=== PATIENT | male | born 1960 | race Caucasian/White ===

== ENCOUNTER 2017-03-18 22:39 | Emergency (ER) | payer MEDICARE ==
[2017-03-19 00:45] LABS: ALANINE AMINOTRANSFERASE 37 U/L (21-72); ALBUMIN 4.2 g/dL (3.5-5.0); ALKALINE PHOSPHATASE 88 U/L (38-126); ANION GAP 16 (5-19); ASPARTATE AMINO TRANSFERASE 31 U/L (17-59); BILIRUBIN,DIRECT 0.4 mg/dL (0.0-0.4); BILIRUBIN,TOTAL 0.4 mg/dL (0.2-1.3); BLOOD UREA NITROGEN 18 mg/dL (7-20); CALCIUM 9.7 mg/dL (8.4-10.2); CARBON DIOXIDE 23 mmol/L (22-30); CHLORIDE 110 mmol/L (98-107); CREATININE RESULT 0.84 mg/dL (0.52-1.25); GLUCOSE 100 mg/dL (75-110); LIPASE 73.8 U/L (23-300); POTASSIUM 4.2 mmol/L (3.6-5.0); SODIUM 148.5 mmol/L (137-145); TOTAL PROTEIN 7.3 g/dL (6.3-8.2)
[2017-03-19 00:49] LABS: ABSOLUTE BASOPHILS # (AUTO) 0.1 10^3/uL (0.0-0.2); ABSOLUTE EOSINOPHILS # (AUTO) 0.2 10^3/uL (0.0-0.6); ABSOLUTE LYMPHOCYTES (AUTO) 2.9 10^3/uL (0.5-4.7); ABSOLUTE MONOCYTES (AUTO) 0.5 10^3/uL (0.1-1.4); ABSOLUTE NEUT (AUTO) 5.3 10^3/uL (1.7-8.2); BASOPHILS % (AUTO) 0.7 % (0-2); EOSINOPHILS % (AUTO) 2.1 % (0-6); HEMATOCRIT 41.3 % (37.9-51.0); HGB HCT DIFFERENCE 0.7; LYMPHOCYTES % (AUTO) 32.4 % (13-45); MEAN CORPUSCULAR HEMOGLOBIN 31.5 pg (27.0-33.4); MEAN CORPUSCULAR VOLUME 93 fl (80-97); MONOCYTES % (AUTO) 5.8 % (3-13); RED BLOOD COUNT 4.45 10^6/uL (4.35-5.55); RED CELL DISTRIBUTION WIDTH 14.2 % (11.5-14.0)
[2017-03-19 00:51] LABS: APPEARANCE,URINE CLEAR; BILIRUBIN,URINE NEGATIVE (NEGATIVE); GLUCOSE, URINE NEGATIVE (NEGATIVE); KETONES,URINE TRACE mg/dL (NEGATIVE); LEUKOCYTE ESTERASE,URINE NEGATIVE (NEGATIVE); NITRITE,URINE NEGATIVE (NEGATIVE); PROTEIN,URINE NEGATIVE (NEGATIVE); URINE SPECIFIC GRAVITY 1.033; UROBILINOGEN,URINE NEGATIVE mg/dL (<2.0)
[2017-03-19] MEDS ORDERED: ONDANSETRON HCL INJ/PF 4 MG/2 ML SDV IV ONE (01:21)
[2017-03-19] MEDS ORDERED: MORPHINE SULFATE 10 MG/ML INJ IV ONE (01:21)
[2017-03-19] MEDS ORDERED: NORMAL SALINE 1000 ML 1,000 ML IV ONE (01:22)
--- NOTE | 2017-03-19 02:11 | ER Document Report ---
ED General - General Chief Complaint: Abdominal Pain Stated Complaint: ABDOMINAL PAIN Mode of Arrival: Medic Information source: Patient Notes: This is a 56-year-old male with a history of hypertension coronary artery disease and ongoing tobacco use who presents with recurrent abdominal pain. He states that he was admitted to [facility] several weeks ago for a "bad gallbladder" and states that they were going to do surgery but then they discovered that he had a "bleeding ulcer" and so they canceled his surgery. He states that he has had difficulty following up with the surgeon as an outpatient. He states for the past 2 days he has had increased upper abdominal pain and right upper quadrant pain along with nausea and vomiting. He also states that he vomited some red blood tonight. He denies any fevers or chills. Of note patient is on chronic narcotics and is in pain management for chronic back pain. He states that he takes oxycodone 4 times a day. TRAVEL OUTSIDE OF THE [place] IN LAST 30 DAYS: No - Related Data Allergies/Adverse Reactions: Iodinated Contrast Media - Oral and [IV Dye, Iodine Containing] Allergy ( Verified 10/23/16 17:17) Past Medical History - Social History Smoking Status: Current Every Day Smoker Frequency of alcohol use: None Drug Abuse: None Family History: Reviewed & Not Pertinent Patient has suicidal ideation: No Patient has homicidal ideation: No - Past Medical History Cardiac Medical History: Reports: Hx Heart Attack, Hx Hypertension Pulmonary Medical History: Reports: Hx Asthma Denies: Hx Tuberculosis Renal/ Medical History: Denies: Hx Peritoneal Dialysis GI Medical History: Reports: Hx Ulcer Musculoskeltal Medical History: Reports Hx Arthritis Psychiatric Medical History: Reports: Hx Anxiety Denies: Hx Depression Past Surgical History: Reports: Hx Cardiac Catheterization - 2 cardiac catheters , angioplasty, patient denies stents, Hx Orthopedic Surgery - ACF, lumbar fusion - Immunizations Immunizations up to date: Yes Hx Diphtheria, Pertussis, Tetanus Vaccination: Yes Hx Pneumococcal Vaccination: 11/14/14 Review of Systems - Review of Systems Notes: REVIEW OF SYSTEMS: CONSTITUTIONAL : Denies fever, chills, or sweats. Denies recent illness. EENT: Denies eye, ear, throat, or mouth pain or symptoms. Denies nasal or sinus congestion. CARDIOVASCULAR: Denies chest pain. RESPIRATORY: Denies cough, cold, or chest congestion. Denies shortness of breath, difficulty breathing, or wheezing. GASTROINTESTINAL: As per history of present illness GENITOURINARY: Denies difficulty urinating, painful urination, burning, frequency, or blood in urine. MUSCULOSKELETAL: Denies neck or back pain or joint pain or swelling. SKIN: Denies rash or skin lesions. HEMATOLOGIC : Denies easy bruising or bleeding. LYMPHATIC: Denies swollen, enlarged glands. NEUROLOGICAL: Denies altered mental status or loss of consciousness. Denies headache. PSYCHIATRIC: Denies anxiety or stress or depression. ALL OTHER SYSTEMS REVIEWED AND NEGATIVE. Physical Exam - Vital signs Vitals: Temp Pulse Resp BP Pulse Ox 97.5 F 77 20 116/68 97 03/18/17 22:57 03/18/17 22:57 03/18/17 22:57 03/18/17 22:57 03/18/17 22:57 - Notes Notes: PHYSICAL EXAMINATION: GENERAL: Well-appearing, well-nourished and in no acute distress. Pleasant and conversant HEAD: Atraumatic, normocephalic. EYES: Pupils equal round and reactive to light, extraocular movements intact, sclera anicteric, conjunctiva are normal. ENT: nares patent, oropharynx clear without exudates. Moist mucous membranes. NECK: Normal range of motion, supple without lymphadenopathy LUNGS: Breath sounds clear to auscultation bilaterally and equal. No wheezes rales or rhonchi. HEART: Regular rate and rhythm without murmurs ABDOMEN: Soft, epigastric and right upper quadrant tenderness to palpation without guarding or rebound or rigidity., normoactive bowel sounds. No masses appreciated. EXTREMITIES: Normal range of motion, no pitting or edema. No cyanosis. NEUROLOGICAL: Cranial nerves grossly intact. No gross focal motor or sensory deficits appreciated. PSYCH: Normal mood, normal affect. SKIN: Warm, Dry, normal turgor, no rashes or lesions noted. Course - Re-evaluation Re-evalutation: 03/19/17 04:29 Patient states that he did vomit here in the ER but I have not visualized the emesis. He states that he is just dry heaving now and that he last vomited blood 2 to 3 hours ago. I did obtain the medical records from [facility]. It appears that he was admitted from February 16 to February 18. He had a gallbladder ultrasound which demonstrated wall thickening and a small amount of pericholecystic fluid but no stones were visualized. He had a HIDA scan with a normal ejection fraction. He was diagnosed with acalculous cholecystitis and instructed to follow up to schedule outpatient cholecystectomy. He also had an EGD demonstrated a clean-based duodenal bulb ulcer with no evidence of active bleeding. On CT today he is noted to have an infrarenal abdominal aortic aneurysm measuring 3.7 x 2.8 centimeters. This is an increase in size from 3.2 x 2.6 cm in April 2014. I have contacted transfer center at [facility], as patient was recently admitted and had his imaging studies there, and as [place] does not have GI services this weekend. 03/19/17 05:[address] Woo at [facility] who requests NGT lavage and stool occult blood to determine GI bleed status, will require transfer if positive for GI bleeding. 03/19/17 05:43 Patient had had multiple requests for narcotic pain medication during his ER stay, although during multiple evaluations he is noted to be on his phone, or resting comfortably watching TV, and in no distress at all. I have continued to discuss and offer non-narcotic pain control options. 03/19/17 06:30 NGT was a technically difficult insertion, but lavage was without gross blood. Occult blood stool was negative. No indication of active GI bleed at this time. 03/19/17 06:54 Patient will be discharged home and is given information to follow up with outpatient surgery clinic. As I was discussing his discharge he again had several requests for pain medication and requested that I write him for a few days of his oxycodone because he will run out 2 days before he can get his refill. I did explain our department policy on chronic pain and he became upset. However after further discussion he states that he understands and he will follow-up with his primary care physician and with the surgeon as an outpatient. We discussed strict return precautions to include fevers, increasing vomiting or further vomiting blood. - Vital Signs Vital signs: Temp Pulse Resp BP Pulse Ox 97.5 F 77 20 116/68 97 03/18/17 22:57 03/18/17 22:57 03/18/17 22:57 03/18/17 22:57 03/18/17 22:57 - Laboratory Result Diagrams: 03/19/17 00:10 03/19/17 00:10 Laboratory results interpreted by me: 03/19/17 03/19/17 03/19/17 00:10 00:10 00:10 RDW 14.2 H Sodium 148.5 H Chloride 110 H Urine Ketones TRACE H Urine Ascorbic Acid 40 H - Diagnostic Test Radiology reviewed: Reports reviewed Discharge - Discharge Clinical Impression: Chronically on opiate therapy Vomiting Qualifiers: Vomiting type: unspecified Vomiting Intractability: non-intractable Nausea presence: with nausea Qualified Code(s): R11.2 - Nausea with vomiting, unspecified Abdominal pain Qualifiers: Abdominal location: unspecified location Qualified Code(s): R10.9 - Unspecified abdominal pain Condition: Stable Disposition: HOME, SELF-CARE Additional Instructions: ABDOMINAL PAIN: There are many causes of abdominal pain. Pain can mean a serious problem requiring surgery (such as appendicitis). It can also be an innocent problem that goes away on its own (such as a viral infection). Often, time must pass to determine the cause of pain. The physician does not feel that hospitalization is necessary, at present. Things may change within the next 24 hours. Call the doctor or come back for re- examination if any problems occur, such as: (1) Pain that becomes more severe, steady, or becomes concentrated in one specific area. Also, pain that is more severe with movement or coughing. (2) Vomiting that persists or becomes more frequent. (3) Blood in the vomitus, urine, or bowel movements. Blood in the stool may have a tarry or black appearance. (4) Shaking chills or fever greater than 100 degrees F. (5) The abdomen becomes more distended or swollen. (6) Bowel movements cease. (7) Failure to improve as expected. Gallbladder Disease The gallbladder is a pouch under the liver which stores bile. Stones, infection, or irritation of the gallbladder cause attacks of pain. Certain foods -- fats in particular -- may provoke attacks. The usual treatment for gallbladder disease is surgical removal of the gallbladder -- called a cholecystectomy. You will be referred to a physician qualified to advise you on the best treatment for your problem. Hospitalization is not necessary. Take clear liquids only until you are painfree. After that, you should stay on a low-fat diet, with frequent SMALL meals. Call the doctor or return at once if you develop severe pain, repeated vomiting, fever, or jaundice (a yellow color in the skin and whites of the eyes) . PAIN MEDICATION INJECTION: You have received an injection of a pain medication. You should experience significant pain relief within 45 minutes. This drug is a narcotic - - it will impair your judgement, slow your reaction time and make you sleepy ( as well as relieve your pain). Narcotics also can cause nausea. You should not drive, work with machinery, or perform any task requiring mental alertness until all effects of the medication are gone -- six to eight hours. Do not take any alcohol, or sedatives, and do not take any other medication without checking with your physician. ANTINAUSEA MEDICATION: You have been given a medication to suppress nausea and vomiting. This type of medication can be given as a shot, pill, or suppository. It will usually last for many hours. Pills and shots usually last six to eight hours, suppositories last about 12 hours. For the typical illness, only one or two doses of the medication may be necessary. Mild lightheadedness may occur. This type of medicine can cause drowsiness. Do not drive or operate dangerous machinery while under its influence. Do not mix with alcohol. See your doctor at once if you have muscle spasms or tightness, or uncontrollable motions (particularly of the neck, mouth, or jaw). Persistent vomiting or severe lightheadedness should also be evaluated by the physician. FOLLOW-UP CARE: If you have been referred to a physician for follow-up care, call the physician s office for an appointment as you were instructed or within the next two days. If you experience worsening or a significant change in your symptoms, notify the physician immediately or return to the Emergency Department at any time for re-evaluation. Follow up with surgery clinic on Tuesday. Avoid any fried, fatty, spicy foods. Return to ER for fever >101, persistent vomiting, blood in vomit or in stool, or any worsening symptoms or concerns. s. Prescriptions: Promethazine HCl [Phenergan 25 mg Supp.rect] 1 supp SD Q8H #12 supp.rect Sucralfate [Carafate Susp 1 Gm/10 Ml Udcup] 1 gm PO BID #300 udc Referrals: [facility] [Provider Group] - Follow up in 3-5 days EDWARD RICHARDSON MD [Primary Care Provider] - Follow up in 3-5 days
[2017-03-19] MEDS ORDERED: PANTOPRAZOLE SODIUM 40 MG VIAL IV ONE (04:46)
[2017-03-19] MEDS ORDERED: OXYCODONE HCL IR 5 MG TABLET PO ONE (07:00)
[2017-03-19 07:01] VITALS: BP 156/86
== END 2017-03-19 07:12 | disposition home or self-care (01) ==
LOC: ER 22:39
DX: R11.2 Nausea with vomiting, unspecified (principal); R10.9 Unspecified abdominal pain; G89.29 Other chronic pain; M54.9 Dorsalgia, unspecified; I10 Essential (primary) hypertension; I71.4 Abdominal aortic aneurysm, without rupture; I25.2 Old myocardial infarction; Z98.1 Arthrodesis status; Z79.891 Long term (current) use of opiate analgesic
CPT/HCPCS: 99284; 96361; 96374; 96375; 36415; 83690; 85025; 82272; 80053; 81001; 74176; J2270; C9113; J2405; J7030; A9270; S0164

== ENCOUNTER 2017-05-20 10:52 | Observation (INO) | payer MEDICARE ==
[2017-05-20] MEDS ORDERED: OXYCODONE HCL IR 5 MG TABLET PO ONE (11:21)
--- NOTE | 2017-05-20 11:21 | ER Document Report ---
ED Cardiac - General Chief Complaint: Chest Pain Stated Complaint: CHEST PAIN Time Seen by Provider: 05/20/17 11:05 Notes: Patient is complaining of pain in the left anterior chest which awakened him at 4:15 AM this morning. Pain was associated with some sweats. He took a nitroglycerin which helped some and called EMS. In route to the hospital, patient was given 3 more sublingual nitros and then a nitro patch was applied. Patient says he still having pain although it is better than initially. Patient says he has been ill for the past week, with "no energy", nausea but not vomiting, left arm tingling, and blood pressure high. He has a history of hypertension and has a blood pressure device at home. Patient saw his primary care provider in [facility] about a week ago and his blood pressure was 189 /116. He has been having some blurred vision and his primary care provider attributed that to his blood pressure being so high. He is on medications for high blood pressure and says he has been taking it as prescribed and has not missed any of the medicine. Patient has a history of a coronary artery stent back in the , but no recent cardiac problems. Has chronic pain from falling 30 feet and breaking his back and neck many years ago. He is on oxycodone 15 mg 4 times a day for this pain and also takes Klonopin twice a day for anxiety. Smokes 1 pack of cigarettes a day. Has requested a nicotine patch, but I advised him I do not think he should have one while having potential coronary artery chest pain. Patient's nurse informs me that patient told her he ran out of his pain medications 2 days ago. When I questioned him about his pain medications, he said he spilled them on the floor and therefore lost some of them. He is not scheduled to return to [place] [facility] until next , about 6 days from now. TRAVEL OUTSIDE OF THE [place] IN LAST 30 DAYS: No - Related Data Allergies/Adverse Reactions: Iodinated Contrast- Oral and IV Dye [IV Dye, Iodine Containing] Allergy ( Verified 10/23/16 17:17) Past Medical History - Social History Smoking Status: Current Every Day Smoker Family History: Reviewed & Not Pertinent - Past Medical History Cardiac Medical History: Reports: Hx Coronary Artery Disease - Stent in the s , Hx Heart Attack, Hx Hypertension Pulmonary Medical History: Reports: Hx Asthma Endocrine Medical History: Denies: Hx Diabetes Mellitus Type 1, Hx Diabetes Mellitus Type 2 GI Medical History: Reports: Hx Ulcer Musculoskeltal Medical History: Reports Hx Arthritis Psychiatric Medical History: Reports: Hx Anxiety Past Surgical History: Reports: Hx Cardiac Catheterization - 2 cardiac catheters , angioplasty, patient denies stents, Hx Orthopedic Surgery - ACF, lumbar fusion - Immunizations Immunizations up to date: Yes Hx Diphtheria, Pertussis, Tetanus Vaccination: Yes Hx Pneumococcal Vaccination: 11/14/14 Review of Systems - Review of Systems Notes: REVIEW OF SYSTEMS: CONSTITUTIONAL : Denies fever. Has had some sweats. [place] very tired and weak and "no energy". EENT: Denies eye, ear, nose or mouth or throat pain or other symptoms. CARDIOVASCULAR: See HPI. RESPIRATORY: Denies cough, chest congestion, or shortness of breath. GASTROINTESTINAL: Denies abdominal pain, vomiting, or diarrhea. Has felt nauseated. GENITOURINARY: Denies difficulty or painful urinating, urinary frequency, blood in urine. MUSCULOSKELETAL: Has chronic back or neck pain. See HPI. Denies joint pain or swelling. SKIN: Denies rash or skin lesions. NEUROLOGICAL: Denies LOC or altered mental status. Denies headache. Denies sensory loss or motor deficits. ALL OTHER SYSTEMS REVIEWED AND NEGATIVE. Physical Exam - Vital signs Vitals: Resp Pulse Ox 16 96 05/20/17 11:04 05/20/17 11:04 Interpretation: Normal - Notes Notes: PHYSICAL EXAMINATION: GENERAL: Well-appearing, in no acute distress. Vital signs are all normal. HEAD: Atraumatic, normocephalic. EYES: Pupils equal round and reactive to light, extraocular movements intact. NECK: Normal range of motion, supple. LUNGS: Breath sounds clear and equal bilaterally. HEART: Regular rate and rhythm without murmurs. ABDOMEN: Soft, nontender. No guarding or rebound. BACK: No tenderness throughout entire back. EXTREMITIES: Normal range of motion without pain. No leg pain or swelling, negative Homans bilaterally. NEUROLOGICAL: Normal speech, normal gait. Normal sensory, motor, and reflex exams. Awake, alert, and oriented x3. Cranial nerves normal. PSYCH: Normal mood, normal affect. SKIN: Warm, dry, no rashes. Course - Re-evaluation Re-evalutation: 05/20/17 13:21 Patient says his pain is much better. In fact, he was able to fall asleep and I had to touch him and say his name a couple of times to awaken him to reassess. Workup has been essentially normal. I have spoken with the hospitalist director construction services and patient will be admitted to observation telemetry. - Vital Signs Vital signs: Temp Pulse Resp BP Pulse Ox 98 F 87 9 L 124/54 L 98 05/20/17 11:19 05/20/17 11:19 05/20/17 12:56 05/20/17 12:56 05/20/17 13:02 - Laboratory Result Diagrams: 05/20/17 11:03 05/20/17 11:03 Laboratory results interpreted by me: 05/20/17 11:03 Chloride 112 H Carbon Dioxide 19 L Glucose 125 H Alkaline Phosphatase 178 H - Diagnostic Test Radiology results interpreted by me: 05/20/17 13:21 Chest x-ray is normal. - EKG Interpretation by Ok EKG shows normal: Sinus rhythm Rate: Normal Rhythm: NSR Additional EKG results interpreted by me: 05/20/17 13:21 EKG is essentially normal. Discharge - Discharge Clinical Impression: Chest pain Qualifiers: Chest pain type: unspecified Qualified Code(s): R07.9 - Chest pain, unspecified Condition: Stable Disposition: ADMITTED OBSERVATION Admitting Provider: Hospitalist Unit Admitted: Telemetry
--- NOTE | 2017-05-20 11:50 | RADIOLOGY REPORT (SQ) ---
EXAM DESCRIPTION: CHEST SINGLE VIEW COMPLETED DATE/TIME: 05/20/2017 11:42 am REASON FOR STUDY: chest pain COMPARISON: 10/23/2016 NUMBER OF VIEWS: One view. TECHNIQUE: Single frontal radiographic view of the chest acquired. LIMITATIONS: None. FINDINGS: LUNGS AND PLEURA: No opacities, masses or pneumothorax. No pleural effusion. MEDIASTINUM AND HILAR STRUCTURES: No masses. Contour normal. HEART AND VASCULAR STRUCTURES: Heart normal in size. Normal vasculature. BONES: Operative changes lower cervical spine. HARDWARE: None in the chest. OTHER: No other significant finding. IMPRESSION: NO SIGNIFICANT RADIOGRAPHIC FINDING IN THE CHEST. TECHNICAL DOCUMENTATION: JOB ID: [id number] [employer]- All Rights Reserved
[2017-05-20 12:01] LABS: ABSOLUTE EOSINOPHILS # (AUTO) 0.1 10^3/uL (0.0-0.6); ABSOLUTE LYMPHOCYTES (AUTO) 1.5 10^3/uL (0.5-4.7); ABSOLUTE MONOCYTES (AUTO) 0.5 10^3/uL (0.1-1.4); ABSOLUTE NEUT (AUTO) 5.7 10^3/uL (1.7-8.2); BASOPHILS % (AUTO) 0.4 % (0-2); EOSINOPHILS % (AUTO) 0.9 % (0-6); HEMATOCRIT 42.2 % (37.9-51.0); HEMOGLOBIN 14.1 g/dL (13.5-17.0); HGB HCT DIFFERENCE 0.1; LYMPHOCYTES % (AUTO) 18.8 % (13-45); MEAN CORPUSCULAR HEMOGLOBIN 31.1 pg (27.0-33.4); MEAN CORPUSCULAR HGB CONC 33.3 g/dL (32.0-36.0); MEAN CORPUSCULAR VOLUME 93 fl (80-97); MONOCYTES % (AUTO) 5.9 % (3-13); RED BLOOD COUNT 4.52 10^6/uL (4.35-5.55); RED CELL DISTRIBUTION WIDTH 13.6 % (11.5-14.0); WHITE BLOOD COUNT 7.7 10^3/uL (4.0-10.5)
[2017-05-20 12:07] LABS: ALANINE AMINOTRANSFERASE 61 U/L (21-72); ALBUMIN 4.1 g/dL (3.5-5.0); ALKALINE PHOSPHATASE 178 U/L (38-126); ANION GAP 12 (5-19); ASPARTATE AMINO TRANSFERASE 30 U/L (17-59); BILIRUBIN,DIRECT 0.4 mg/dL (0.0-0.4); BILIRUBIN,TOTAL 0.7 mg/dL (0.2-1.3); BLOOD UREA NITROGEN 16 mg/dL (7-20); CALCIUM 9.7 mg/dL (8.4-10.2); CARBON DIOXIDE 19 mmol/L (22-30); CHLORIDE 112 mmol/L (98-107); CREATINE KINASE 59 U/L (55-170); CREATININE RESULT 0.67 mg/dL (0.52-1.25); GLUCOSE 125 mg/dL (75-110); POTASSIUM 4.3 mmol/L (3.6-5.0); SODIUM 142.8 mmol/L (137-145); TOTAL PROTEIN 7.2 g/dL (6.3-8.2)
[2017-05-20 12:19] LABS: CREATINE KINASE MB 0.59 ng/mL (<4.55); TROPONIN I < 0.012 ng/mL
--- NOTE | 2017-05-20 13:08 | EKG REPORT ---
SEVERITY:- ABNORMAL ECG - SINUS RHYTHM RIGHT ATRIAL ABNORMALITY : Confirmed by: Yosi Ta MD 20-May-2017 13:07:52
[2017-05-20] MEDS ORDERED: CLONAZEPAM 1 MG TABLET PO ONE (13:14)
[2017-05-20] MEDS ORDERED: ONDANSETRON 4 MG TAB.RAPDIS PO ONE (13:15)
[2017-05-20] MEDS ORDERED: NITROGLYCERIN 0.4 MG/TAB 25 TAB/BOTTLE SL PRN (13:39)
[2017-05-20 13:49] LABS: APPEARANCE,URINE SLIGHTLY-CLOUDY; BILIRUBIN,URINE SMALL (NEGATIVE); GLUCOSE, URINE NEGATIVE (NEGATIVE); KETONES,URINE TRACE mg/dL (NEGATIVE); LEUKOCYTE ESTERASE,URINE TRACE (NEGATIVE); NITRITE,URINE NEGATIVE (NEGATIVE); PROTEIN,URINE 100 mg/dL (NEGATIVE); URINE SPECIFIC GRAVITY 1.034
--- NOTE | 2017-05-20 14:27 | PDOC H&P ---
History of Present Illness Admission Date/PCP: 05/20/17 13:40 EDWARD PILARA Patient complains of: Left anterior chest pain History of Present Illness: Kristian Magallon is a 56 year old male, who prese nts to [facility], complaining of pain in the left anterior chest which awakened him at 4 :15 AM this morning. Pain was associated with some diaphoresis. He took a nitroglycerin which helped some and called EMS. In route to the hospital, patient was given 3 more sublingual nitros and then a nitro patch was applied. Patient says he still having pain although it is better than initially. Patient says he has been ill for the past week, with "no energy", nausea but not vomiting, left arm tingling, and blood pressure high. He has a history of hypertension and has a blood pressure device at home. Patient saw his primary care provider, Eliazar Cervantes in [place], about a week ago and his blood pressure was 189/116. He has been having some blurred vision and his primary care provider attributed that to his blood pressure being so high. He is on medications for high blood pressure and says he has been taking it as prescribed and has not missed any of the medicine. Patient has a history of a coronary artery stent back in the , but no recent cardiac problems. Has chronic pain from falling 30 feet and breaking his back and neck many years ago. He is on oxycodone 15 mg 4 times a day for this pain and also takes Klonopin twice a day for anxiety. Smokes 1 pack of cigarettes a day. Has requested a nicotine patch, but I advised him I do not think he should have one while having potential coronary artery chest pain. Patient's nurse informs me that patient told her he ran out of his pain medications 2 days ago. When I questioned him about his pain medications, he said he spilled them on the floor and therefore lost some of them. He is not scheduled to return to [facility] pain [facility] until next , about 6 days from now. Past Medical History Cardiac Medical History: Reports: Coronary Artery Disease - Stent in the , Myocardial Infarction, Hypertension Pulmonary Medical History: Reports: Asthma Denies: Tuberculosis EENT Medical History: Reports: None Neurological Medical History: Reports: None - Transfused Endocrine Medical History: Denies: Diabetes Mellitus Type 1, Diabetes Mellitus Type 2 Renal/ Medical History: Reports: None Malignancy Medical History: Reports: None GI Medical History: Reports: None Musculoskeltal Medical History: Reports: Arthritis Psychiatric Medical History: Reports: Tobacco Dependency Denies: Depression Traumatic Medical History: Reports: None Hematology: Reports: None Infectious Medical History: Reports: None Past Surgical History Past Surgical History: Reports: Cardiac Catheterization - 2 cardiac catheters, angioplasty, patient denies stents, Orthopedic Surgery - ACF, lumbar fusion Social History Information Source: Patient Lives with: Spouse/Significant other Smoking Status: Current Every Day Smoker Cigarettes Packs Per Day: 1 Number of Years Smokin Last Time Smoked: Today Frequency of Alcohol Use: Rare Hx Recreational Drug Use: No Hx Prescription Drug Abuse: No - Advance Directive Resuscitation Status: Full Code Surrogate healthcare decision maker:: , Family History Family History: CAD - She was given here for, DM, Hypertension Parental Family History Reviewed: Yes Children Family History Reviewed: Yes Sibling(s) Family History Reviewed.: Yes Medication/Allergy Home Medications: Clonidine HCl [Catapres 0.2 mg Tablet] 0.2 mg PO Q12 05/20/17 Hydralazine HCl [Apresoline 25 mg Tablet] 25 mg PO Q12 05/20/17 Hydrochlorothiazide 75 mg PO Q8 05/20/17 Lisinopril [Prinivil 40 mg Tablet] 40 mg PO Q12 05/20/17 Oxycodone HCl [Oxycontin] 15 mg PO QID 05/20/17 Allergies/Adverse Reactions: Iodinated Contrast- Oral and IV Dye [IV Dye, Iodine Containing] Allergy ( Verified 10/23/16 17:17) Review of Systems Constitutional: PRESENT: fatigue Eyes: PRESENT: visual disturbances Ears: ABSENT: hearing changes Cardiovascular: PRESENT: chest pain Respiratory: PRESENT: cough, other - nonproductive Gastrointestinal: ABSENT: abdominal pain, constipation, diarrhea, hematemesis, hematochezia, nausea, vomiting Genitourinary: ABSENT: dysuria, hematuria Musculoskeletal: PRESENT: back pain Integumentary: ABSENT: rash, wounds Neurological: ABSENT: abnormal gait, abnormal speech, confusion, dizziness, focal weakness, syncope Psychiatric: ABSENT: anxiety, depression, homidical ideation, suicidal ideation Endocrine: ABSENT: cold intolerance, heat intolerance, polydipsia, polyuria Hematologic/Lymphatic: ABSENT: easy bleeding, easy bruising Physical Exam Vital Signs: Temp Pulse Resp BP Pulse Ox 98 F 87 9 L 124/54 L 98 05/20/17 11:19 05/20/17 11:19 05/20/17 12:56 05/20/17 12:56 05/20/17 13:02 General appearance: PRESENT: no acute distress, well-developed, well-nourished Head exam: PRESENT: atraumatic, normocephalic Eye exam: PRESENT: conjunctiva pink, EOMI, PERRLA. ABSENT: scleral icterus Ear exam: PRESENT: normal external ear exam Mouth exam: PRESENT: moist, tongue midline Neck exam: ABSENT: carotid bruit, JVD, lymphadenopathy, thyromegaly Respiratory exam: PRESENT: clear to auscultation ying, symmetrical, unlabored Cardiovascular exam: PRESENT: RRR. ABSENT: diastolic murmur, rubs, systolic murmur Pulses: PRESENT: normal carotid pulses Vascular exam: PRESENT: normal capillary refill GI/Abdominal exam: PRESENT: normal bowel sounds, soft. ABSENT: distended, guarding, mass, organolmegaly, rebound, tenderness Rectal exam: PRESENT: deferred Extremities exam: PRESENT: full ROM. ABSENT: calf tenderness, clubbing, pedal edema Musculoskeletal exam: PRESENT: ambulatory, full ROM Neurological exam: PRESENT: alert, awake, oriented to person, oriented to place , oriented to time, oriented to situation, CN II-XII grossly intact. ABSENT: motor sensory deficit Psychiatric exam: PRESENT: appropriate affect, normal mood. ABSENT: homicidal ideation, suicidal ideation Skin exam: PRESENT: dry, intact, warm. ABSENT: cyanosis, rash Results Impressions: Chest X-Ray 05/20/17 11:23 IMPRESSION: NO SIGNIFICANT RADIOGRAPHIC FINDING IN THE CHEST. Assessment & Plan - Diagnosis (1) Chest pain Qualifiers: Chest pain type: intercostal pain Qualified Code(s): R07.82 - Intercostal pain Is this a current diagnosis for this admission?: YesPlan: Patient has history of CAD, with TX and stent in 1997. He has continued to smoke. Pain is reproducible to palpation of left anterior chest wall. It is atypical for CAD in presentation. We will admit on observation status and obtain serial troponins to rule out acute coronary syndrome. Patient has not had a stress test in over 5 years. (2) Hypertensive urgency Is this a current diagnosis for this admission?: YesPlan: Improved with IV lopressor. Will continue oral antihypertensives and prn hydralazine. (3) Tobacco abuse Is this a current diagnosis for this admission?: YesPlan: Counseled will provide with nicotine patch. He has been counseled on tobacco cessation - Time Time Spent: 50 to 70 Minutes Critical Time spent with patient: 25-34 minutes Smoking Cessation Education: 3 to 10 minutes Medications reviewed and adjusted accordingly: Yes Anticipated discharge: Home
[2017-05-20 14:31] LABS: URINE BARBITURATES SCREEN NEGATIVE; URINE METHADONE SCREEN NEGATIVE; URINE OPIATES LOW NEGATIVE; URINE PHENCYCLIDINE SCREEN NEGATIVE
[2017-05-20] MEDS ORDERED: NICOTINE 21 MG/24 HR PATCH.TD24 TD ONE (15:00)
[2017-05-20] MEDS: DIAZEPAM 5 MG TABLET PO PRN ×2 (15:42→23:22)
[2017-05-20] MEDS ORDERED: HYDRALAZINE HCL INJ/PF 20 MG/1 ML SDV IV PRN (16:43)
[2017-05-20] MEDS: OXYCODONE HCL IR 5 MG TABLET PO SCH ×2 (18:09→21:20)
[2017-05-20] MEDS: ENOXAPARIN SODIUM INJ 40 MG/0.4 ML DISP.SYRIN SUBCUT SCH (21:18)
[2017-05-20] MEDS: HYDRALAZINE HCL 25 MG TABLET PO SCH (21:20)
[2017-05-20] MEDS: LISINOPRIL 10 MG TABLET PO SCH (21:20)
[2017-05-20] MEDS ORDERED: CLONIDINE HCL 0.2 MG TABLET PO SCH (22:00)
[2017-05-20] MEDS ORDERED: HYDROCHLOROTHIAZIDE 25 MG TABLET PO SCH (22:00)
[2017-05-20] MEDS ORDERED: ATORVASTATIN CALCIUM 40 MG TABLET PO SCH (22:00)
[2017-05-21 07:16] LABS: CHOLESTEROL 175.12 mg/dL (0-200); Direct HDL 29 mg/dL (>40); TRIGLYCERIDES 143 mg/dL (<150)
[2017-05-21 07:26] LABS: DIRECT LDL 127 mg/dL (<100)
[2017-05-21] MEDS: HYDRALAZINE HCL 25 MG TABLET PO SCH (08:53)
[2017-05-21] MEDS: OXYCODONE HCL IR 5 MG TABLET PO SCH (08:53)
[2017-05-21] MEDS: LISINOPRIL 10 MG TABLET PO SCH (08:53)
[2017-05-21] MEDS: ENOXAPARIN SODIUM INJ 40 MG/0.4 ML DISP.SYRIN SUBCUT SCH (08:55)
[2017-05-21] MEDS ORDERED: NITROGLYCERIN 10 MG (0.4 MG/HR) PATCH.TD24 TD SCH (10:00)
[2017-05-21] MEDS ORDERED: NICOTINE 21 MG/24 HR PATCH.TD24 TD SCH (10:00)
[2017-05-21] MEDS ORDERED: ASPIRIN 81 MG TABLET, ENT COATED PO SCH (10:00)
[2017-05-21 11:07] VITALS: BP 142/74
--- NOTE | 2017-05-21 11:07 | PDOC DISCHARGE SUMMARY ---
General - Admit/Disc Date/PCP Admission Date/Primary Care Provider: 05/20/17 13:40 EDWARD OSUNKOYA Discharge Date: 05/21/17 - Discharge Diagnosis (1) Chest pain Is this a current diagnosis for this admission?: YesSummary: Ruled out for acute coronary syndrome. Pain is reproducible with palpation, most likely musculoskeletal. Patient drank coffee this am stress test was cancelled. He would like to do as an outpatient (2) Hypertensive urgency Is this a current diagnosis for this admission?: YesSummary: Resolved. Patient is normotensive on current medications. Question home compliance with meds (3) Tobacco abuse Is this a current diagnosis for this admission?: YesSummary: Counseled - Additional Information Resuscitation Status: Full Code Discharge Diet: Cardiac Discharge Activity: Activity As Tolerated, Balance Activity w/Rest Home Medications: Hydralazine HCl [Apresoline 25 mg Tablet] 25 mg PO Q12 05/20/17 Hydrochlorothiazide 75 mg PO Q8 05/20/17 Hydrocodone/Chlorphen P-Stirex [Hydrocodone-Chlorphen ER Susp] 5 mg PO BID 05/20 Lisinopril [Prinivil 40 mg Tablet] 40 mg PO Q12 05/20/17 Clonidine HCl [Catapres 0.2 mg Tablet] 0.2 mg PO Q12 #60 tablet 05/21/17 Oxycodone HCl 15 mg PO Q6 #20 tablet 05/21/17 History of Present Illness Patient complains of: Left chest pain History of Present Illness: Kristian Magallon is a 56 year old male, who prese nts to [facility], complaining of pain in the left anterior chest which awakened him at 4 :15 AM this morning. Pain was associated with some diaphoresis. He took a nitroglycerin which helped some and called EMS. In route to the hospital, patient was given 3 more sublingual nitros and then a nitro patch was applied. Patient says he still having pain although it is better than initially. Patient says he has been ill for the past week, with "no energy", nausea but not vomiting, left arm tingling, and blood pressure high. He has a history of hypertension and has a blood pressure device at home. Patient saw his primary care provider, Eliazar Cervantes in [place], about a week ago and his blood pressure was 189/116. He has been having some blurred vision and his primary care provider attributed that to his blood pressure being so high. He is on medications for high blood pressure and says he has been taking it as prescribed and has not missed any of the medicine. Patient has a history of a coronary artery stent back in the 90s, but no recent cardiac problems. Has chronic pain from falling 30 feet and breaking his back and neck many years ago. He is on oxycodone 15 mg 4 times a day for this pain and also takes Klonopin twice a day for anxiety. Smokes 1 pack of cigarettes a day. Has requested a nicotine patch, but I advised him I do not think he should have one while having potential coronary artery chest pain. Patient's nurse informs me that patient told her he ran out of his pain medications 2 days ago. When I questioned him about his pain medications, he said he spilled them on the floor and therefore lost some of them. He is not scheduled to return to [facility] pain [facility] until next , about 6 days from now. Hospital Course Hospital Course: He was admitted to the telemetry floor as observation status overnight. Serial troponins were done 3, which were all less than 0.012. Continued to have constant mild left sternal chest discomfort. EKG was unremarkable for any acute changes. Stress test had been ordered for this morning however the patient drinks coffee despite obstruction. Stress test therefore was canceled. Patient states she would like to do this and outpatient. His pain does not appear to be cardiac in origin. Pain increases with palpation to the left third intercostal space. He denies any shortness of breath, dyspnea or dizziness. He feels ready for discharge. His blood pressure has been much improved overnight. Question compliance of his medications at home. Physical Exam Vital Signs: Temp Pulse Resp BP Pulse Ox 98.3 F 67 19 131/99 H 98 05/21/17 08:05 05/21/17 08:05 05/21/17 08:05 05/21/17 08:05 05/21/17 08:05 Intake & Output 05/20/17 05/21/17 05/22/17 06:59 06:59 06:59 Intake Total 1800 Output Total 1200 Balance 600 Weight 97.1 kg General appearance: PRESENT: no acute distress, well-developed, well-nourished Head exam: PRESENT: atraumatic, normocephalic Eye exam: PRESENT: conjunctiva pink, EOMI, PERRLA. ABSENT: scleral icterus Ear exam: PRESENT: normal external ear exam Mouth exam: PRESENT: moist, neck supple, tongue midline Teeth exam: PRESENT: edentulous Neck exam: ABSENT: carotid bruit, JVD, lymphadenopathy, thyromegaly Respiratory exam: PRESENT: clear to auscultation ying. ABSENT: rales, rhonchi, wheezes Cardiovascular exam: PRESENT: RRR. ABSENT: diastolic murmur, rubs, systolic murmur Pulses: PRESENT: normal dorsalis pedis pul Vascular exam: PRESENT: normal capillary refill GI/Abdominal exam: PRESENT: normal bowel sounds, soft. ABSENT: distended, guarding, mass, organolmegaly, rebound, tenderness Rectal exam: PRESENT: deferred Extremities exam: PRESENT: full ROM. ABSENT: calf tenderness, clubbing, pedal edema Neurological exam: PRESENT: alert, awake, oriented to person, oriented to place , oriented to time, oriented to situation, CN II-XII grossly intact. ABSENT: motor sensory deficit Psychiatric exam: PRESENT: appropriate affect, normal mood. ABSENT: homicidal ideation, suicidal ideation Skin exam: PRESENT: dry, intact, warm. ABSENT: cyanosis, rash Results Laboratory Results: 05/21/17 05:37 Triglycerides 143 Cholesterol 175.12 LDL Cholesterol Direct 127 H VLDL Cholesterol 29.0 HDL Cholesterol 29 L 05/20/17 05/20/17 05/21/17 14:09 19:34 01:11 Troponin I < 0.012 < 0.012 < 0.012 Impressions: Chest X-Ray 05/20/17 11:23 IMPRESSION: NO SIGNIFICANT RADIOGRAPHIC FINDING IN THE CHEST. Qualifiers PATEINT BEING DISCHARGED WITH ANY OF THE FOLLOWING DIAGNOSIS?: No
== END 2017-05-21 11:25 | disposition home or self-care (01) ==
LOC: ER 10:52 → EH 13:40 → UNDOADMOB 13:43 → EH 13:43 → 4S 16:40
PROVIDERS: ADMIT Family Medicine; ATTEND Family Medicine
PROC: HZ31ZZZ Individual Counseling for Substance Abuse Treatment, Behavioral (ICD-10-PCS; principal; 2017-05-20)
DX: R07.89 Other chest pain (principal); I16.0 Hypertensive urgency; F17.210 Nicotine dependence, cigarettes, uncomplicated; Z79.899 Other long term (current) drug therapy; Z95.5 Presence of coronary angioplasty implant and graft; G89.21 Chronic pain due to trauma; F41.9 Anxiety disorder, unspecified; R05 Cough; Z79.891 Long term (current) use of opiate analgesic; Z82.49 Family history of ischemic heart disease and other diseases of the circulatory system; Z98.1 Arthrodesis status
CPT/HCPCS: 93005; 99285; 36415 ×2; 82553; 82550; 85025; 80053; 81001; 84484 ×2; 80307; 80061; 71010; 93010; 99406; A9270 ×10; J1650; J3490; G0378; S0119

== ENCOUNTER 2017-06-20 12:28 | Emergency (ER) | payer MEDICARE ==
[2017-06-20] MEDS ORDERED: MORPHINE SULFATE 10 MG/ML INJ IV ONE ×2 (12:46→13:59)
[2017-06-20 13:28] LABS: ABSOLUTE EOSINOPHILS # (AUTO) 0.2 10^3/uL (0.0-0.6); ABSOLUTE LYMPHOCYTES (AUTO) 1.5 10^3/uL (0.5-4.7); ABSOLUTE MONOCYTES (AUTO) 0.4 10^3/uL (0.1-1.4); ABSOLUTE NEUT (AUTO) 4.7 10^3/uL (1.7-8.2); BASOPHILS % (AUTO) 0.6 % (0-2); EOSINOPHILS % (AUTO) 2.9 % (0-6); HEMATOCRIT 42.4 % (37.9-51.0); HEMOGLOBIN 14.4 g/dL (13.5-17.0); HGB HCT DIFFERENCE 0.8; MEAN CORPUSCULAR HEMOGLOBIN 31.8 pg (27.0-33.4); MEAN CORPUSCULAR HGB CONC 33.9 g/dL (32.0-36.0); MEAN CORPUSCULAR VOLUME 94 fl (80-97); MONOCYTES % (AUTO) 5.7 % (3-13); RED BLOOD COUNT 4.52 10^6/uL (4.35-5.55); RED CELL DISTRIBUTION WIDTH 14.1 % (11.5-14.0); SEGMENTED NEUTROPHILS % (AUTO) 68.8 % (42-78); WHITE BLOOD COUNT 6.8 10^3/uL (4.0-10.5)
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
[2017-06-20 13:30] LABS: PROTHROMBIN TIME 11.5 SEC (11.4-15.4)
[2017-06-20 13:31] LABS: PARTIAL THROMBOPLASTIN TIME 31.8 SEC (23.5-35.8)
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
[2017-06-20 13:45] LABS: ANION GAP 9 (5-19); BLOOD UREA NITROGEN 14 mg/dL (7-20); CALCIUM 9.2 mg/dL (8.4-10.2); CARBON DIOXIDE 23 mmol/L (22-30); CHLORIDE 108 mmol/L (98-107); CREATININE RESULT 0.69 mg/dL (0.52-1.25); GLUCOSE 88 mg/dL (75-110); POTASSIUM 4.4 mmol/L (3.6-5.0)
[2017-06-20 14:17] LABS: APPEARANCE,URINE CLEAR; BILIRUBIN,URINE NEGATIVE (NEGATIVE); GLUCOSE, URINE NEGATIVE (NEGATIVE); KETONES,URINE NEGATIVE (NEGATIVE); LEUKOCYTE ESTERASE,URINE NEGATIVE (NEGATIVE); NITRITE,URINE NEGATIVE (NEGATIVE); PROTEIN,URINE NEGATIVE (NEGATIVE); URINE SPECIFIC GRAVITY 1.017; UROBILINOGEN,URINE NEGATIVE mg/dL (<2.0)
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
[2017-06-20] MEDS ORDERED: KETOROLAC TROMETHAMINE INJ/PF 30 MG/1 ML SDV IV ONE (15:09)
[2017-06-20 16:23] VITALS: BP 147/86
== END 2017-06-20 16:23 | disposition home or self-care (01) ==
LOC: ER 12:28
DX: M25.551 Pain in right hip (principal); M54.2 Cervicalgia; M54.5 Low back pain; R51 Headache; F17.200 Nicotine dependence, unspecified, uncomplicated; V87.7XXA Person injured in collision between other specified motor vehicles (traffic), initial encounter
CPT/HCPCS: 96376; 99284; 96374; 96375; 36415; 85025; 85610; 85730; 80048; 81001; 70450; 71250; 72125; 74176; J1885; J2270

== ENCOUNTER 2017-10-17 13:44 | Emergency (ER) | payer MEDICARE ==
[2017-10-17] MEDS ORDERED: NORMAL SALINE 1000 ML 1,000 ML IV ONE (14:33)
[2017-10-17] MEDS ORDERED: HYDROMORPHONE HCL INJ/PF 2 MG/ML AMPULE IV ONE ×2 (14:33→17:17)
[2017-10-17] MEDS ORDERED: ONDANSETRON HCL INJ/PF 4 MG/2 ML SDV IV ONE (14:33)
--- NOTE | 2017-10-17 14:44 | ER Document Report ---
ED General - General Chief Complaint: Abdominal Pain Stated Complaint: ABDOMINAL PAIN Time Seen by Provider: 10/17/17 14:14 Mode of Arrival: Ambulatory Information source: Patient TRAVEL OUTSIDE OF THE [place] IN LAST 30 DAYS: No - HPI Patient complains to provider of: Abdominal pain Onset: Other - 2 months ago Onset/Duration: Worse Quality of pain: Dull, Fullness, Pressure Severity: Moderate Pain Level: 3 Associated symptoms: Nausea, Vomiting, Shortness of breath Exacerbated by: Movement, Walking, Coughing, Food Relieved by: Denies Similar symptoms previously: No Recently seen / treated by doctor: No Notes: 56-year-old male presents emergency department complaining of diffuse abdominal pain. States that he had his gallbladder removed approximately 2 months ago at [place] as an outpatient with Dr. Melendez. He states ever since then he has had abdominal difficulties. He states his abdomen is markedly castro than it normally is he is having bowel movements his last one was last night he is vomiting he vomited this morning. He states he does not have an appetite however he did last eat last night around 8:00. States he saw Dr. Melendez one time postop in her office. He now states that she retired and he is unable to see her - Related Data Allergies/Adverse Reactions: Iodinated Contrast- Oral and IV Dye [IV Dye, Iodine Containing] Allergy ( Verified 10/23/16 17:17) Home Medications: Current Home Medications Amlodipine Besylate/Valsartan [Amlodipine-Valsartan 10-320 mg] 1 each PO DAILY 10/17/17 [History] Clonazepam [Klonopin] 0.5 mg PO TID 10/17/17 [History] Hydralazine HCl 50 mg PO TID 10/17/17 [History] Lisinopril 40 mg PO DAILY 10/17/17 [History] Oxycodone HCl 15 mg PO QID 10/17/17 [History] Past Medical History - General Information source: Patient - Social History Smoking Status: Former Smoker - Patient on the nicotine patch 21 mcg however he does not have it on right now Cigarette use (# per day): No Chew tobacco use (# tins/day): No Smoking Education Provided: No Frequency of alcohol use: None Drug Abuse: None Lives with: Family Family History: Reviewed & Not Pertinent Patient has suicidal ideation: No Patient has homicidal ideation: No - Medical History Notes: Patient's past medical history is significant for hypertension, coronary artery disease with one cardiac stent, as well as a significant fall in 2006 that resulted in him getting hardware in his lumbar and C-spine. Patient's on chronic oxycodone for pain secondary to this trauma. - Past Medical History Cardiac Medical History: Reports: Hx Coronary Artery Disease - Stent in the 90s , Hx Heart Attack, Hx Hypertension Pulmonary Medical History: Reports: Hx Asthma, Hx COPD Denies: Hx Tuberculosis Neurological Medical History: Reports: None Endocrine Medical History: Denies: Hx Diabetes Mellitus Type 1, Hx Diabetes Mellitus Type 2 Renal/ Medical History: Denies: Hx Peritoneal Dialysis Malignancy Medical History: Reports None GI Medical History: Reports: Hx Ulcer Musculoskeltal Medical History: Reports Hx Arthritis Psychiatric Medical History: Reports: Hx Anxiety Denies: Hx Depression Past Surgical History: Reports: Hx Abdominal Surgery, Hx Cardiac Catheterization - 2 cardiac catheters, angioplasty, patient denies stents, Hx Cholecystectomy, Hx Coronary Stent, Hx Orthopedic Surgery - ACF, lumbar fusion - Immunizations Immunizations up to date: Yes Hx Diphtheria, Pertussis, Tetanus Vaccination: Yes Hx Pneumococcal Vaccination: 11/14/14 Review of Systems - Review of Systems Constitutional: Fever, Weakness EENT: No symptoms reported Cardiovascular: Chest pain - States he is having discomfort in his chest because of the size of his belly swelling Respiratory: Short of breath Gastrointestinal: Abdomen distended, Abdominal pain, Nausea, Vomiting, Poor appetite Genitourinary: Hematuria Male Genitourinary: No symptoms reported Musculoskeletal: No symptoms reported Skin: No symptoms reported Hematologic/Lymphatic: No symptoms reported Neurological/Psychological: No symptoms reported Physical Exam - Vital signs Vitals: Pulse Resp BP 120 H 24 H 160/100 H 10/17/17 13:57 10/17/17 13:57 10/17/17 13:57 - Notes Notes: PHYSICAL EXAMINATION: GENERAL: She is lying on the gurney in obvious distress. His shirt is pulled up to his chest his belly is markedly distended. HEAD: Atraumatic, normocephalic. EYES: Pupils equal round and reactive to light, extraocular movements intact, sclera anicteric, conjunctiva are normal. ENT: Nares patent, oropharynx clear without exudates. Dry mucous membranes. NECK: Normal range of motion, supple without lymphadenopathy LUNGS: Breath sounds clear to auscultation bilaterally and equal. No wheezes rales or rhonchi. HEART: Regular rate and rhythm without murmurs ABDOMEN: Abdomen is markedly distended. He has sent bowel sounds. He has healed lap jeffrey scars in his right upper quadrant. Tenderness with palpation. Musculoskeletal: Normal range of motion, no pitting or edema. No cyanosis. NEUROLOGICAL: Cranial nerves grossly intact. Normal speech, normal gait. Normal sensory, motor exams PSYCH: Normal mood, normal affect. SKIN: Warm, Dry, normal turgor, no rashes or lesions noted. Course - Re-evaluation Re-evalutation: 10/17/17 20:12 I did go and reassess the patient. He is still having right upper quadrant tenderness and is distended. I did call the surgeon Dr. Ware who is coming to see the patient. - Vital Signs Vital signs: Temp Pulse Resp BP Pulse Ox 98.7 F 120 H 23 H 128/98 H 92 10/17/17 16:20 10/17/17 13:57 10/17/17 17:01 10/17/17 17:01 10/17/17 17:01 - Laboratory Result Diagrams: 10/17/17 15:30 10/17/17 15:30 Laboratory results interpreted by me: 10/17/17 10/17/17 10/17/17 15:30 15:30 16:23 WBC 12.7 H Absolute Neutrophils 9.8 H Direct Bilirubin 0.5 H ALT 96 H Urine Blood SMALL H - Transfer of Care Notes: 10/17/17 21:29 Dr. Ware saw the patient in consult and stated he was stable for discharge Discharge - Discharge Clinical Impression: Abdominal pain Condition: Stable Disposition: HOME, SELF-CARE Instructions: Abdominal Pain ([facility]) Referrals: NOAH MATTHEWS MD [ACTIVE STAFF] - Follow up as needed
--- NOTE | 2017-10-17 15:28 | RADIOLOGY REPORT (SQ) ---
EXAM DESCRIPTION: ACUTE ABDOMEN SERIES COMPLETED DATE/TIME: 10/17/2017 3:09 pm REASON FOR STUDY: post op pain/obstruction COMPARISON: CT scan 06/20/2017 NUMBER OF VIEWS: Three views. TECHNIQUE: Frontal chest, supine abdomen and upright/decubitus abdomen radiographic images acquired. LIMITATIONS: None. FINDINGS: CHEST: Lungs clear of infiltrates. FREE AIR: None. No abnormal gas collections. BOWEL GAS PATTERN: Nonobstructive pattern. No dilated loops or air fluid levels. CALCIFICATIONS: No suspicious calcifications. HARDWARE: Lower lumbar spine. Right upper quadrant. SOFT TISSUES: No gross mass or suggestion of organomegaly. BONES: No acute fracture. No worrisome bone lesions. OTHER: No other significant finding. IMPRESSION: NO RADIOGRAPHIC EVIDENCE FOR ACUTE ABDOMINAL DISEASE. TECHNICAL DOCUMENTATION: JOB ID: [id number] [employer]- All Rights Reserved
[2017-10-17 15:51] LABS: ABSOLUTE LYMPHOCYTES (AUTO) 1.9 10^3/uL (0.5-4.7); ABSOLUTE MONOCYTES (AUTO) 0.9 10^3/uL (0.1-1.4); ABSOLUTE NEUT (AUTO) 9.8 10^3/uL (1.7-8.2); BASOPHILS % (AUTO) 0.4 % (0-2); EOSINOPHILS % (AUTO) 0.3 % (0-6); HEMOGLOBIN 14.8 g/dL (13.5-17.0); HGB HCT DIFFERENCE 1.4; LYMPHOCYTES % (AUTO) 15.3 % (13-45); MEAN CORPUSCULAR HEMOGLOBIN 32.6 pg (27.0-33.4); MEAN CORPUSCULAR HGB CONC 34.3 g/dL (32.0-36.0); MEAN CORPUSCULAR VOLUME 95 fl (80-97); PROTHROMBIN TIME 11.9 SEC (11.4-15.4); RED BLOOD COUNT 4.53 10^6/uL (4.35-5.55); RED CELL DISTRIBUTION WIDTH 12.8 % (11.5-14.0); WHITE BLOOD COUNT 12.7 10^3/uL (4.0-10.5)
[2017-10-17 15:54] LABS: ALANINE AMINOTRANSFERASE 96 U/L (21-72); ALKALINE PHOSPHATASE 108 U/L (38-126); ANION GAP 12 (5-19); ASPARTATE AMINO TRANSFERASE 38 U/L (17-59); BILIRUBIN,DIRECT 0.5 mg/dL (0.0-0.4); BILIRUBIN,TOTAL 0.6 mg/dL (0.2-1.3); BLOOD UREA NITROGEN 11 mg/dL (7-20); CALCIUM 9.3 mg/dL (8.4-10.2); CARBON DIOXIDE 26 mmol/L (22-30); CHLORIDE 104 mmol/L (98-107); CREATININE RESULT 0.68 mg/dL (0.52-1.25); GLUCOSE 92 mg/dL (75-110); LIPASE 53.1 U/L (23-300); MAGNESIUM 1.6 mg/dL (1.6-2.3); POTASSIUM 4.4 mmol/L (3.6-5.0); SODIUM 142.4 mmol/L (137-145); TOTAL PROTEIN 6.3 g/dL (6.3-8.2)
[2017-10-17] MEDS ORDERED: NICOTINE 21 MG/24 HR PATCH.TD24 TD ONE (17:17)
[2017-10-17] MEDS ORDERED: PROMETHAZINE HCL INJ 25 MG/1 ML VIAL IM ONE (17:17)
[2017-10-17 17:19] LABS: APPEARANCE,URINE CLEAR; BILIRUBIN,URINE NEGATIVE (NEGATIVE); GLUCOSE, URINE NEGATIVE (NEGATIVE); KETONES,URINE NEGATIVE (NEGATIVE); LEUKOCYTE ESTERASE,URINE NEGATIVE (NEGATIVE); NITRITE,URINE NEGATIVE (NEGATIVE); PROTEIN,URINE NEGATIVE (NEGATIVE); URINE SPECIFIC GRAVITY 1.017; UROBILINOGEN,URINE NEGATIVE mg/dL (<2.0)
[2017-10-17 17:35] LABS: RBC,URINE 0-1 /HPF
--- NOTE | 2017-10-17 18:36 | RADIOLOGY REPORT (SQ) ---
EXAM DESCRIPTION: CT ABD/PELVIS ORAL ONLY COMPLETED DATE/TIME: 10/17/2017 6:12 pm REASON FOR STUDY: post op abd pain/distension COMPARISON: 06/20/2017 TECHNIQUE: CT scan of the abdomen and pelvis performed without intravenous contrast. Oral contrast given. Images reviewed with lung, soft tissue, and bone windows. Reconstructed coronal and sagittal MPR images reviewed. All images stored on PACS. All CT scanners at this facility use dose modulation, iterative reconstruction, and/or weight based d osing when appropriate to reduce radiation dose to as low as reasonably achievable (ALARA). [facility]: Dose Right [facility]: CareDose [facility]: Dose Right [facility]: Teradose 4D [facility]: Cardiac Systemz RADIATION DOSE: mGy. LIMITATIONS: None. FINDINGS: LOWER CHEST: No significant findings. No nodules or infiltrates. NON-CONTRASTED LIVER, SPLEEN, ADRENALS: Evaluation limited by lack of IV contrast. No identified sign ificant masses. PANCREAS: No masses. No peripancreatic inflammatory changes. GALLBLADDER: Surgically absent. RIGHT KIDNEY AND URETER: No suspicious masses. Assessment limited by lack of IV contrast. No signif icant calcifications. No hydronephrosis or hydroureter. LEFT KIDNEY AND URETER: No suspicious masses. Assessment limited by lack of IV contrast. No signifi cant calcifications. No hydronephrosis or hydroureter. AORTA AND RETROPERITONEUM: Stable 3.7 cm infrarenal abdominal aortic aneurysm. BOWEL AND PERITONEAL CAVITY: No obvious masses or inflammatory changes. No free fluid. APPENDIX: Normal. PELVIS, BLADDER, AND ABDOMINAL WALL:No abnormal masses. No free fluid. Bladder normal. BONES: There are screws through the pedicles from L4-S1. A disc implant is present at L5-S1. OTHER: No other significant finding. IMPRESSION: Stable abdominal aortic aneurysm as described. Surgical changes in the lower lumbar spi ne. There are no findings that explain patient's pain. COMMENT: Quality ID # [id number]: Final reports with documentation of one or more dose reduction techniques (e.g., Automated exposure control, adjustment of the mA and/or kV according to patient size, use of iterative reconstruction technique) TECHNICAL DOCUMENTATION: JOB ID: [id number]- All Rights Reserved
[2017-10-17] MEDS ORDERED: RINGERS SOLUTION,LACTATED 1,000 ML IV ONE (20:10)
--- NOTE | 2017-10-17 20:37 | EKG REPORT ---
SEVERITY:- NORMAL ECG - SINUS RHYTHM : Confirmed by: Patsy Ng 17-Oct-2017 20:37:14
--- NOTE | 2017-10-17 21:44 | PDOC CONSULTATION ---
Consultation Consult Date: 10/17/17 Consult reason:: Abdominal pain History of Present Illness History of Present Illness: JOSE DAVID ORTIZ JR is a 56 year old male Is brought to [facility] emergency department via ground rescue complaining of abdominal pain. The patient is a wandering historian, who relates a several month history of abdominal pain which actually preceded his recent laparoscopic cholecystectomy performed in [place] for biliary dyskinesia by his verbal report. Pain is been primarily in the right upper quadrant associated with abdominal distention and bloating. He denies change in bowel habits, or constipation. Last colonoscopy a year and a half ago, reportedly normal. Patient was being worked up on an outpatient basis with a number of studies ordered but not actually obtained. Recent smokes 2 packs of cigarettes per day, denies alcohol and drug use. He denies history of trauma. He states his abdominal pain improved somewhat after the gallbladder removal but then returned. He reports a history of reflux. He seen in the emergency department where he had a CT scan of the abdomen and pelvis which was interpreted as normal. Surgery consulted for opinion. Past Medical History Cardiac Medical History: Reports: Coronary Artery Disease - Stent in the s, Myocardial Infarction, Hypertension Pulmonary Medical History: Reports: Asthma, Chronic Obstructive Pulmonary Disease (COPD) Denies: Tuberculosis Neurological Medical History: Reports: None Endocrine Medical History: Denies: Diabetes Mellitus Type 1, Diabetes Mellitus Type 2 Malignancy Medical History: Reports: None Musculoskeltal Medical History: Reports: Arthritis Psychiatric Medical History: Denies: Depression Hematology: Reports: Anemia Past Surgical History Past Surgical History: Reports: Cardiac Catheterization - 2 cardiac catheters, angioplasty, patient denies stents, Cholecystectomy, Coronary Stent, Orthopedic Surgery - ACF, lumbar fusion Social History Lives with: Family Smoking Status: Former Smoker - Patient on the nicotine patch 21 mcg however he does not have it on right now Frequency of Alcohol Use: Rare Hx Recreational Drug Use: No Drugs: None Hx Prescription Drug Abuse: No Family History Family History: Reviewed & Not Pertinent Parental Family History Reviewed: Yes Children Family History Reviewed: Yes Sibling(s) Family History Reviewed.: Yes Medication/Allergy Home Medications: Amlodipine Besylate/Valsartan [Amlodipine-Valsartan 10-320 mg] 1 each PO DAILY 10/17/17 Clonazepam [Klonopin] 0.5 mg PO TID 10/17/17 Hydralazine HCl 50 mg PO TID 10/17/17 Lisinopril 40 mg PO DAILY 10/17/17 Oxycodone HCl 15 mg PO QID 10/17/17 Allergies/Adverse Reactions: Iodinated Contrast- Oral and IV Dye [IV Dye, Iodine Containing] Allergy ( Verified 10/23/16 17:17) Review of Systems Constitutional: ABSENT: chills, fever(s), headache(s), weight gain, weight loss Eyes: ABSENT: visual disturbances Ears: ABSENT: hearing changes Cardiovascular: ABSENT: chest pain, dyspnea on exertion, edema, orthropnea, palpitations Gastrointestinal: PRESENT: as per HPI, other Genitourinary: ABSENT: dysuria, hematuria Psychiatric: ABSENT: anxiety, depression, homidical ideation, suicidal ideation Endocrine: ABSENT: cold intolerance, heat intolerance, polydipsia, polyuria Physical Exam Vital Signs: Temp Pulse Resp BP Pulse Ox 98.7 F 120 H 23 H 128/98 H 92 10/17/17 16:20 10/17/17 13:57 10/17/17 17:01 10/17/17 17:01 10/17/17 17:01 Intake & Output 10/16/17 10/17/17 10/18/17 06:59 06:59 06:59 Weight 221 kg General appearance: PRESENT: mild distress Head exam: PRESENT: normocephalic Eye exam: PRESENT: EOMI Ear exam: PRESENT: TM's normal bilaterally Neck exam: PRESENT: full ROM Respiratory exam: PRESENT: wheezes Cardiovascular exam: PRESENT: RRR Pulses: PRESENT: normal carotid pulses, normal radial pulses GI/Abdominal exam: PRESENT: other - Somewhat distended no tympany no peritoneal signs some right-sided abdominal wall tenderness. No katie hernia Rectal exam: PRESENT: deferred Extremities exam: PRESENT: full ROM Musculoskeletal exam: PRESENT: full ROM Neurological exam: PRESENT: oriented to time, oriented to situation Psychiatric exam: PRESENT: anxious Results Laboratory Results: 10/17/17 15:30 10/17/17 15:30 10/17/17 10/17/17 10/17/17 15:30 15:30 16:23 WBC 12.7 H RBC 4.53 Hgb 14.8 Hct 43.0 MCV 95 MCH 32.6 MCHC 34.3 RDW 12.8 Plt Count 236 Seg Neutrophils % 77.0 Lymphocytes % 15.3 Monocytes % 7.0 Eosinophils % 0.3 Basophils % 0.4 Absolute Neutrophils 9.8 H Absolute Lymphocytes 1.9 Absolute Monocytes 0.9 Absolute Eosinophils 0.0 Absolute Basophils 0.0 Sodium 142.4 Potassium 4.4 Chloride 104 Carbon Dioxide 26 Anion Gap 12 BUN 11 Creatinine 0.68 Est GFR ( Amer) > 60 Est GFR (Non-Af Amer) > 60 Glucose 92 Lactic Acid Calcium 9.3 Magnesium 1.6 Total Bilirubin 0.6 AST 38 ALT 96 H Alkaline Phosphatase 108 Total Protein 6.3 Albumin 4.0 Lipase 53.1 Urine Color YELLOW Urine Appearance CLEAR Urine pH 6.0 Ur Specific [place] 1.017 Urine Protein NEGATIVE Urine Glucose (UA) NEGATIVE Urine Ketones NEGATIVE Urine Blood SMALL H Urine Nitrite NEGATIVE Ur Leukocyte Esterase NEGATIVE 10/17/17 16:44 WBC RBC Hgb Hct MCV MCH MCHC RDW Plt Count Seg Neutrophils % Lymphocytes % Monocytes % Eosinophils % Basophils % Absolute Neutrophils Absolute Lymphocytes Absolute Monocytes Absolute Eosinophils Absolute Basophils Sodium Potassium Chloride Carbon Dioxide Anion Gap BUN Creatinine Est GFR ( Amer) Est GFR (Non-Af Amer) Glucose Lactic Acid 0.9 Calcium Magnesium Total Bilirubin AST ALT Alkaline Phosphatase Total Protein Albumin Lipase Urine Color Urine Appearance Urine pH Ur Specific [place] Urine Protein Urine Glucose (UA) Urine Ketones Urine Blood Urine Nitrite Ur Leukocyte Esterase 10/17/17 15:30 Troponin I < 0.012 Impressions: Acute Abdomen Series 10/17/17 14:35 IMPRESSION: NO RADIOGRAPHIC EVIDENCE FOR ACUTE ABDOMINAL DISEASE. Abdomen/Pelvis CT 10/17/17 15:26 IMPRESSION: Stable abdominal aortic aneurysm as described. Surgical changes in the lower lumbar spine. There are no findings that explain patient's pain. Assessment & Plan - Diagnosis (1) Abdominal pain Qualifiers: Abdominal location: right upper quadrant Qualified Code(s): R10.11 - Right upper quadrant pain Is this a current diagnosis for this admission?: Yes Plan: Impression: Patient has right upper quadrant pain, nonacute. His history is vague. Exam findings, laboratory profile and CT scan of the abdomen and pelvis today failed to reveal a organic explanation for his symptoms. Recommendations: 1. No indication for further imaging or surgical intervention 2. Lifestyle modification; consider H2 halle therapy 2. Follow-up with primary care provider as previously scheduled. (2) Hypertensive urgency Is this a current diagnosis for this admission?: Yes (3) Tobacco abuse Is this a current diagnosis for this admission?: Yes (4) Coronary artery disease Is this a current diagnosis for this admission?: Yes - Time Time Spent: 50 to 70 Minutes Smoking Cessation Education: over 10 minutes
[2017-10-17 22:02] VITALS: BP 149/97
== END 2017-10-17 22:54 | disposition home or self-care (01) ==
LOC: ER 13:44
DX: R10.11 Right upper quadrant pain (principal); R14.0 Abdominal distension (gaseous); R06.02 Shortness of breath; R11.2 Nausea with vomiting, unspecified; R50.9 Fever, unspecified; R53.1 Weakness; F17.210 Nicotine dependence, cigarettes, uncomplicated; I25.10 Atherosclerotic heart disease of native coronary artery without angina pectoris; I10 Essential (primary) hypertension; J44.9 Chronic obstructive pulmonary disease, unspecified; I25.2 Old myocardial infarction; Z98.1 Arthrodesis status; Z79.891 Long term (current) use of opiate analgesic
CPT/HCPCS: 93005; 96376; 99285; 96372; 96361; 96374; 96375; 36415; 83690; 83735; 85025; 85610; 80076; 80048; 81001; 84484; 83605; 74022; 74176; 93010; J1170; J2550; J2405; J7030

== ENCOUNTER 2018-02-03 14:41 | Emergency (ER) | payer MEDICARE ==
[2018-02-03 14:50] VITALS: BP 85/59
== END 2018-02-03 15:05 | disposition left against medical advice (07) ==
LOC: ER 14:41
DX: Z53.21 Procedure and treatment not carried out due to patient leaving prior to being seen by health care provider (principal)

== ENCOUNTER 2018-03-20 18:30 | Emergency (ER) | payer MEDICARE ==
[2018-03-20] MEDS ORDERED: ONDANSETRON HCL INJ/PF 4 MG/2 ML SDV IV ONE (19:59)
--- NOTE | 2018-03-20 20:00 | ER Document Report ---
ED Medical Screen (RME) - General Chief Complaint: Abdominal Pain Stated Complaint: ABDOMINAL PAIN Time Seen by Provider: 03/20/18 19:59 Mode of Arrival: Medic Information source: Patient Notes: Patient presents complaining of right-sided abdominal pain for the past week and a half that worsened this evening. Patient does report nausea and vomiting 3 episodes. Patient denies any problems with bowel movements. Patient denies any urinary symptoms or fever. hx: Chronic neck, back pain, cholecystectomy I have greeted and performed a rapid initial assessment of this patient. A comprehensive ED assessment and evaluation of the patient, analysis of test results and completion of the medical decision making process will be conducted by additional ED providers. TRAVEL OUTSIDE OF THE [place] IN LAST 30 DAYS: No - Related Data Allergies/Adverse Reactions: Iodinated Contrast- Oral and IV Dye [IV Dye, Iodine Containing] Allergy ( Verified 10/23/16 17:17) Past Medical History - Past Medical History Cardiac Medical History: Reports: Hx Coronary Artery Disease - Stent in the 90s , Hx Heart Attack, Hx Hypertension Pulmonary Medical History: Reports: Hx Asthma, Hx COPD Denies: Hx Tuberculosis Endocrine Medical History: Denies: Hx Diabetes Mellitus Type 1, Hx Diabetes Mellitus Type 2 Renal/ Medical History: Denies: Hx Peritoneal Dialysis GI Medical History: Reports: Hx Ulcer Musculoskeltal Medical History: Reports Hx Arthritis Psychiatric Medical History: Reports: Hx Anxiety Denies: Hx Depression Past Surgical History: Reports: Hx Abdominal Surgery, Hx Cardiac Catheterization - 2 cardiac catheters, angioplasty, patient denies stents, Hx Cholecystectomy, Hx Coronary Stent, Hx Orthopedic Surgery - ACF, lumbar fusion - Immunizations Immunizations up to date: Yes Hx Diphtheria, Pertussis, Tetanus Vaccination: Yes Physical Exam - Vital signs Vitals: Temp Pulse Resp BP Pulse Ox 97.8 F 79 20 151/82 H 98 03/20/18 18:43 03/20/18 18:43 03/20/18 18:43 03/20/18 18:43 03/20/18 18:43 - Abdominal Tenderness: Tender - Right middle quadrant abdominal tenderness Course - Vital Signs Vital signs: Temp Pulse Resp BP Pulse Ox 97.8 F 79 20 151/82 H 98 03/20/18 18:43 03/20/18 18:43 03/20/18 18:43 03/20/18 18:43 03/20/18 18:43
[2018-03-20 20:29] LABS: ABSOLUTE BASOPHILS # (AUTO) 0.1 10^3/uL (0.0-0.2); ABSOLUTE EOSINOPHILS # (AUTO) 0.1 10^3/uL (0.0-0.6); ABSOLUTE LYMPHOCYTES (AUTO) 2.7 10^3/uL (0.5-4.7); ABSOLUTE MONOCYTES (AUTO) 0.7 10^3/uL (0.1-1.4); ABSOLUTE NEUT (AUTO) 6.8 10^3/uL (1.7-8.2); BASOPHILS % (AUTO) 0.8 % (0-2); EOSINOPHILS % (AUTO) 0.9 % (0-6); HEMATOCRIT 49.1 % (37.9-51.0); HEMOGLOBIN 16.6 g/dL (13.5-17.0); LYMPHOCYTES % (AUTO) 26.1 % (13-45); MEAN CORPUSCULAR HEMOGLOBIN 31.9 pg (27.0-33.4); MEAN CORPUSCULAR HGB CONC 33.7 g/dL (32.0-36.0); MEAN CORPUSCULAR VOLUME 95 fl (80-97); MONOCYTES % (AUTO) 6.4 % (3-13); PLATELET COUNT 285 10^3/uL (150-450); RED BLOOD COUNT 5.19 10^6/uL (4.35-5.55); RED CELL DISTRIBUTION WIDTH 13.1 % (11.5-14.0); SEGMENTED NEUTROPHILS % (AUTO) 65.8 % (42-78); TOTAL CELLS COUNTED % (AUTO) 100 %; WHITE BLOOD COUNT 10.3 10^3/uL (4.0-10.5)
[2018-03-20 20:36] LABS: APPEARANCE,URINE CLEAR; BILIRUBIN,URINE NEGATIVE (NEGATIVE); COLOR,URINE YELLOW; GLUCOSE, URINE NEGATIVE (NEGATIVE); KETONES,URINE NEGATIVE (NEGATIVE); LEUKOCYTE ESTERASE,URINE NEGATIVE (NEGATIVE); NITRITE,URINE NEGATIVE (NEGATIVE); PROTEIN,URINE NEGATIVE (NEGATIVE); URINE SPECIFIC GRAVITY 1.036; UROBILINOGEN,URINE NEGATIVE mg/dL (<2.0)
[2018-03-20 20:51] LABS: ALANINE AMINOTRANSFERASE 74 U/L (21-72); ALBUMIN 4.5 g/dL (3.5-5.0); ALKALINE PHOSPHATASE 93 U/L (38-126); ANION GAP 10 (5-19); ASPARTATE AMINO TRANSFERASE 47 U/L (17-59); BILIRUBIN,DIRECT 0.3 mg/dL (0.0-0.4); BILIRUBIN,TOTAL 0.3 mg/dL (0.2-1.3); BLOOD UREA NITROGEN 16 mg/dL (7-20); CALCIUM 10.3 mg/dL (8.4-10.2); CARBON DIOXIDE 29 mmol/L (22-30); CHLORIDE 108 mmol/L (98-107); GLUCOSE 85 mg/dL (75-110); LIPASE 34.9 U/L (23-300); POTASSIUM 4.8 mmol/L (3.6-5.0); SODIUM 146.5 mmol/L (137-145); TOTAL PROTEIN 7.3 g/dL (6.3-8.2)
--- NOTE | 2018-03-20 21:37 | ER Document Report ---
ED General - General Chief Complaint: Abdominal Pain Stated Complaint: ABDOMINAL PAIN Time Seen by Provider: 03/20/18 19:59 Mode of Arrival: Medic Information source: Patient Notes: 57 y/o male with h/o hypertension, colon cancer, chronic back pain presents with complaint of 2 days of right lower quadrant abdominal pain that started 1 day prior to arrival. The pain is sharp, intermittent and worse with movement. Patient has had associated nausea, vomiting. He states that one day prior to arrival he had bleeding from his rectum. Patient's last bowel movement was this morning. He denies any black or bloody stools today. He is having flatus. Patient denies any back pain, dysuria, hematuria. Reports that he underwent a colonoscopy in March 2017 which did show "a cancerous tumor" which was successfully removed per the patient and required no further treatment. TRAVEL OUTSIDE OF THE [place] IN LAST 30 DAYS: No - HPI Onset: Other Onset/Duration: Intermittent, Worse Quality of pain: Sharp Severity: Moderate Associated symptoms: Nausea, Vomiting. denies: Chest pain Exacerbated by: Movement Relieved by: Denies Similar symptoms previously: No Recently seen / treated by doctor: No - Related Data Allergies/Adverse Reactions: Iodinated Contrast- Oral and IV Dye [IV Dye, Iodine Containing] Allergy ( Verified 10/23/16 17:17) Past Medical History - General Information source: Patient, [facility] Records - Social History Smoking Status: Current Every Day Smoker Frequency of alcohol use: None Drug Abuse: None Family History: Reviewed & Not Pertinent Patient has suicidal ideation: No Patient has homicidal ideation: No - Past Medical History Cardiac Medical History: Reports: Hx Coronary Artery Disease - Stent in the 90s , Hx Heart Attack, Hx Hypertension Pulmonary Medical History: Reports: Hx Asthma, Hx COPD Denies: Hx Tuberculosis Endocrine Medical History: Denies: Hx Diabetes Mellitus Type 1, Hx Diabetes Mellitus Type 2 Renal/ Medical History: Denies: Hx Peritoneal Dialysis GI Medical History: Reports: Hx Ulcer Musculoskeltal Medical History: Reports Hx Arthritis Psychiatric Medical History: Reports: Hx Anxiety Denies: Hx Depression Past Surgical History: Reports: Hx Abdominal Surgery, Hx Cardiac Catheterization - 2 cardiac catheters, angioplasty, patient denies stents, Hx Cholecystectomy, Hx Coronary Stent, Hx Orthopedic Surgery - ACF, lumbar fusion - Immunizations Immunizations up to date: Yes Hx Diphtheria, Pertussis, Tetanus Vaccination: Yes Hx Pneumococcal Vaccination: 11/14/14 Review of Systems - Review of Systems Notes: Patient denies fever, chills, nausea, vomiting, headache, ear pain, sore throat , cough, chest pain, shortness of breath, back pain, dysuria, hematuria, rash, SI/HI. Physical Exam - Vital signs Vitals: Temp Pulse Resp BP Pulse Ox 97.8 F 79 20 151/82 H 98 03/20/18 18:43 03/20/18 18:43 03/20/18 18:43 03/20/18 18:43 03/20/18 18:43 - Notes Notes: PHYSICAL EXAMINATION: GENERAL: Well-appearing, well-nourished and in no acute distress. HEAD: Atraumatic, normocephalic. EYES: Pupils equal round and reactive to light, extraocular movements intact, sclera anicteric, conjunctiva are normal. ENT: Nares patent, oropharynx clear without exudates. Moist mucous membranes. NECK: Normal range of motion, supple without lymphadenopathy LUNGS: Breath sounds clear to auscultation bilaterally and equal. No wheezes rales or rhonchi. HEART: Regular rate and rhythm without murmurs ABDOMEN: Abdominal distention, tender to palpation in the right lower quadrant without guarding or rebound. No evidence of hernia. -rovsigs, - heal strike, - mcburneys. Musculoskeletal: Normal range of motion, no pitting or edema. No cyanosis. NEUROLOGICAL: Cranial nerves grossly intact. Normal speech, normal gait. Normal sensory, motor exams PSYCH: Normal mood, normal affect. SKIN: Warm, Dry, normal turgor, no rashes or lesions noted. Course - Re-evaluation Re-evalutation: Laboratory 03/20/18 03/20/18 03/20/18 20:15 20:15 20:15 WBC 10.3 RBC 5.19 Hgb 16.6 Hct 49.1 MCV 95 MCH 31.9 MCHC 33.7 RDW 13.1 Plt Count 285 Seg Neutrophils % 65.8 Lymphocytes % 26.1 Monocytes % 6.4 Eosinophils % 0.9 Basophils % 0.8 Absolute Neutrophils 6.8 Absolute Lymphocytes 2.7 Absolute Monocytes 0.7 Absolute Eosinophils 0.1 Absolute Basophils 0.1 Sodium 146.5 H Potassium 4.8 Chloride 108 H Carbon Dioxide 29 Anion Gap 10 BUN 16 Creatinine 0.73 Est GFR ( Amer) > 60 Est GFR (Non-Af Amer) > 60 Glucose 85 Lactic Acid Calcium 10.3 H Total Bilirubin 0.3 Direct Bilirubin 0.3 Neonat Total Bilirubin Not Reportable Neonat Direct Bilirubin Not Reportable Neonat Indirect Bili Not Reportable AST 47 ALT 74 H Alkaline Phosphatase 93 Total Protein 7.3 Albumin 4.5 Lipase 34.9 Urine Color YELLOW Urine Appearance CLEAR Urine pH 5.0 Ur Specific [place] 1.036 Urine Protein NEGATIVE Urine Glucose (UA) NEGATIVE Urine Ketones NEGATIVE Urine Blood SMALL H Urine Nitrite NEGATIVE Urine Bilirubin NEGATIVE Urine Urobilinogen NEGATIVE Ur Leukocyte Esterase NEGATIVE Urine WBC (Auto) 1 Urine RBC (Auto) 7 Squamous Epi Cells Auto <1 Urine Mucus (Auto) FEW Urine Ascorbic Acid NEGATIVE Stool Occult Blood 03/20/18 03/20/18 21:41 22:28 WBC RBC Hgb Hct MCV MCH MCHC RDW Plt Count Seg Neutrophils % Lymphocytes % Monocytes % Eosinophils % Basophils % Absolute Neutrophils Absolute Lymphocytes Absolute Monocytes Absolute Eosinophils Absolute Basophils Sodium Potassium Chloride Carbon Dioxide Anion Gap BUN Creatinine Est GFR ( Amer) Est GFR (Non-Af Amer) Glucose Lactic Acid 0.8 Calcium Total Bilirubin Direct Bilirubin Neonat Total Bilirubin Neonat Direct Bilirubin Neonat Indirect Bili AST ALT Alkaline Phosphatase Total Protein Albumin Lipase Urine Color Urine Appearance Urine pH Ur Specific [place] Urine Protein Urine Glucose (UA) Urine Ketones Urine Blood Urine Nitrite Urine Bilirubin Urine Urobilinogen Ur Leukocyte Esterase Urine WBC (Auto) Urine RBC (Auto) Squamous Epi Cells Auto Urine Mucus (Auto) Urine Ascorbic Acid Stool Occult Blood NEGATIVE 03/21/18 00:13 57-year-old male with a history of hypertension, colon cancer, AAA, previous kidney stones presents with 1 day of right lower quadrant abdominal pain, and 1 day of bright red blood per rectum. Upon arrival vitals were reviewed. Patient is afebrile, mildly hypertensive and not hypoxic. He does not appear toxic or dehydrated. He is in no acute distress. Previous medical records were reviewed. Exam is significant for right lower quadrant abdominal pain without guarding or rebound. Rectal exam performed and showed no blood and brown stool. CBC is without leukocytosis or anemia. CMP shows no electrolyte abnormalities. Lactate is within normal limits. Stool is negative for blood, urinalysis is significant for blood. Patient has a mildly elevated ALT.CT of the abdomen and pelvis with IV contrast was obtained and pending. Patient has received 2 mg of IV Dilaudid, 50 mg of fentanyl for pain and zofran for nausea. He received Benadryl, Solu-Medrol, Pepcid (due to reported IV contrast allergy - itching.) Patient has had multiple visits for abdominal pain. Previous CAT scans do show an abdominal aortic aneurysm measuring 3.2 cm. Bedside ultrasound was performed and showed right-sided moderate hydronephrosis. Patient has called me in the the room numerous times. consistently asking for pain medications. Patient showed me he coughed up some blood tinged sputum. He is a is a long time smoker with chronic cough and chronic bronchitis is likely the cause. chest without crepitus. Patient re-evaluated MULTIPLE times, and has remained stable. 03/21/18 00:14 03/21/18 02:37 Patient signed out to Dr Farrell with CT of abdomen and pelvis pending - Vital Signs Vital signs: Temp Pulse Resp BP Pulse Ox 97.8 F 79 20 151/82 H 98 03/20/18 18:43 03/20/18 18:43 03/20/18 18:43 03/20/18 18:43 03/20/18 18:43 03/21/18 02:19 Patient signed out to Dr Farrell with CT of abdomen and pelvis pending. - Laboratory Result Diagrams: 03/20/18 20:15 03/20/18 20:15 Laboratory results interpreted by me: 03/20/18 03/20/18 20:15 20:15 Sodium 146.5 H Chloride 108 H Calcium 10.3 H ALT 74 H Urine Blood SMALL H - Diagnostic Test Radiology reviewed: Image reviewed Procedures - Ultrasound/Bedside Ultrasound/Bedside Time completed: 00:40 - Renal ultrasound performed an significant for right sided moderate hydronephrosis. Discharge - Discharge Clinical Impression: Right lower quadrant abdominal pain, Tobacco abuse Hematuria Qualifiers: Hematuria type: unspecified type Qualified Code(s): R31.9 - Hematuria, unspecified Urolithiasis Qualifiers: Urinary calculus location: other lower urinary tract location Qualified Code(s) : N21.8 - Other lower urinary tract calculus Condition: Good Disposition: HOME, SELF-CARE Instructions: Abdominal Pain ([facility]), Kidney Stone ([facility]), Toradol Injection ([facility]) Prescriptions: Hydrocodone/Acetaminophen [[place] 5-325 mg Tablet] 1 tab PO Q6H #12 tablet Ibuprofen [Motrin 600 Mg Tablet] 600 mg PO TID #15 tablet Ondansetron [Zofran Odt 4 mg Tablet] 1 - 2 tab PO Q4H PRN #15 tab.rapdis PRN Reason: For Nausea/Vomiting Tamsulosin HCl [Flomax 0.4 mg Cap.sr] 0.4 mg PO DAILY #7 cap.sr.24h Forms: Elevated Blood Pressure, Smoking Cessation Education Referrals: ALYSSA SAM NP [Primary Care Provider] - Follow up as needed
[2018-03-20] MEDS ORDERED: FAMOTIDINE INJ/PF 20 MG/2 ML SDV IV ONE (21:38)
[2018-03-20] MEDS ORDERED: METHYLPREDNISOLONE INJ 125 MG/2 ML SDV IV ONE (21:38)
[2018-03-20] MEDS ORDERED: DIPHENHYDRAMINE HCL 50 MG/ML VIAL IV ONE (21:38)
[2018-03-20] MEDS ORDERED: HYDROMORPHONE HCL INJ/PF 2 MG/ML AMPULE IV ONE ×2 (21:43→23:13)
[2018-03-20] MEDS ORDERED: FENTANYL CITRATE INJ/PF 100 MCG/2 ML AMPUL IV ONE (23:49)
[2018-03-20] MEDS ORDERED: KETOROLAC TROMETHAMINE INJ/PF 30 MG/1 ML SDV IV ONE (23:49)
[2018-03-21] MEDS ORDERED: NORMAL SALINE 1000 ML 1,000 ML IV ONE (00:22)
[2018-03-21] MEDS ORDERED: ONDANSETRON HCL INJ/PF 4 MG/2 ML SDV IV ONE (01:07)
[2018-03-21] MEDS ORDERED: HYDROMORPHONE HCL INJ/PF 2 MG/ML AMPULE IV ONE (02:25)
[2018-03-21 02:38] VITALS: BP 169/93
--- NOTE | 2018-03-21 03:15 | RADIOLOGY REPORT (SQ) ---
EXAM DESCRIPTION: CT ABD/PELVIS WITH IV ORAL COMPLETED DATE/TIME: 03/20/2018 11:14 pm REASON FOR STUDY: rlq abd pain COMPARISON: None. TECHNIQUE: CT scan of the abdomen and pelvis performed using helical scanning technique with dynamic intravenous contrast injection. No oral contrast. Images reviewed with lung, soft tissue, and bone windows. Reconstructed coronal and sagittal MPR images reviewed. Delayed images for evaluation of the urinary system also acquired. All images stored on PACS. All CT scanners at this facility use dose modulation, iterative reconstruction, and/or weight based d osing when appropriate to reduce radiation dose to as low as reasonably achievable (ALARA). [facility]: Dose Right [facility]: CareDose [facility]: Dose Right [facility]: Teradose 4D [facility]: [employer] CONTRAST TYPE AND DOSE: contrast/concentration: Isovue 300.00 mg/ml; Total Contrast Delivered: 99.0 ml; Total Saline Delivered: 40.0 ml RENAL FUNCTION: Not recorded RADIATION DOSE: CT Rad equipment meets quality standard of care and radiation dose reduction techniq ues were employed. CTDIvol: 17.8 - 17.8 mGy. DLP: 2021 mGy-cm.. LIMITATIONS: None. FINDINGS: LOWER CHEST: No significant findings. No nodules or infiltrates. LIVER: Fatty liver. SPLEEN: Normal size. No focal lesions. PANCREAS: No masses. No significant calcifications. No adjacent inflammation or peripancreatic fluid collections. Pancreatic duct not dilated. GALLBLADDER: No identified stones by CT criteria. No inflammatory changes to suggest cholecystitis. ADRENAL GLANDS: No significant masses or asymmetry. RIGHT KIDNEY AND URETER: No solid masses. No significant calcifications. No hydronephrosis or hyd roureter. LEFT KIDNEY AND URETER: No solid masses. No significant calcifications. No hydronephrosis or hydr oureter. AORTA AND VESSELS: Stable 3.5 cm infrarenal abdominal aortic aneurysm. RETROPERITONEUM: No retroperitoneal adenopathy, hemorrhage or masses. BOWEL AND PERITONEAL CAVITY: No masses or inflammatory changes. No free fluid or peritoneal masses. APPENDIX: Normal. PELVIS: No mass. No free fluid. Normal bladder. ABDOMINAL WALL: No masses. No hernias. BONES: No significant or acute findings. OTHER: No other significant finding. IMPRESSION: No acute findings. Fatty liver. TECHNICAL DOCUMENTATION: JOB ID: [id number] Quality ID # [id number]: Final reports with documentation of one or more dose reduction techniques (e.g., Au tomated exposure control, adjustment of the mA and/or kV according to patient size, use of iterative reconstruction technique) 2010 [employer]- All Rights Reserved Reading location - IP/workstation name: [email or web address]
== END 2018-03-21 02:54 | disposition home or self-care (01) ==
LOC: ER 18:30
DX: N21.9 Calculus of lower urinary tract, unspecified (principal); R31.9 Hematuria, unspecified; N13.30 Unspecified hydronephrosis; R10.31 Right lower quadrant pain; I71.4 Abdominal aortic aneurysm, without rupture; R11.2 Nausea with vomiting, unspecified; R14.0 Abdominal distension (gaseous); K62.5 Hemorrhage of anus and rectum; I10 Essential (primary) hypertension; I25.10 Atherosclerotic heart disease of native coronary artery without angina pectoris; J44.9 Chronic obstructive pulmonary disease, unspecified; R04.2 Hemoptysis; I25.2 Old myocardial infarction; F17.200 Nicotine dependence, unspecified, uncomplicated; Z85.038 Personal history of other malignant neoplasm of large intestine; Z90.49 Acquired absence of other specified parts of digestive tract; Z91.041 Radiographic dye allergy status
CPT/HCPCS: 96376; 99284; 96361; 96374; 96375; 36415; 83690; 85025; 82272; 80053; 81001; 83605; 74177; J1200; J3010; J2930; J1885; J1170 ×2; J2405 ×2; J7030; S0028

== ENCOUNTER 2018-05-21 10:13 | Emergency (ER) | payer MEDICARE ==
[2018-05-21] MEDS ORDERED: ASPIRIN 81 MG TABLET, CHEWABLE PO ONE (10:15)
[2018-05-21] MEDS ORDERED: MORPHINE SULFATE 10 MG/ML INJ IV ONE ×4 (10:30→16:19)
[2018-05-21] MEDS ORDERED: ONDANSETRON 4 MG TAB.RAPDIS PO ONE ×2 (10:31→15:09)
--- NOTE | 2018-05-21 10:43 | ER Document Report ---
ED General - General Chief Complaint: Epigastric Pain Stated Complaint: CHEST PAIN Time Seen by Provider: 05/21/18 10:19 Mode of Arrival: Medic Information source: Patient Notes: 57 year old Male brought to the ED for complaints of chest pain. Patient says that he woke up at 1AM with the pain. Constant since then. Intensity will fluctuate. Patient describes the pain as aching, sharp, stabbing, pressure. Starts in the epigastric area and radiates into the LUQ, RUQ, RLQ. No alleviating or exacerbating factors. Patient received aspirin and nitro by EMS. Patient says the nitro briefly helped with the pain. Patient having associated nausea. Denies vomiting, diarrhea, constipation, dysuria, hematuria, melena, hematochezia. Patient had gallbladder removed about 6 months ago. Says that after his surgery these symptoms have presented. Hx of 3.5 infrarenal AAA. Patient says that he has a hx of HTN but denies hyperlipidemia, CAD, family hx of CAD, DM. Patient does smoke. TRAVEL OUTSIDE OF THE [place] IN LAST 30 DAYS: No - HPI Onset: This morning Onset/Duration: Sudden Quality of pain: Fullness, Pressure, Stabbing, Throbbing Severity: Severe Pain Level: 5 Associated symptoms: Nausea Exacerbated by: Denies Relieved by: Denies Similar symptoms previously: Yes Recently seen / treated by doctor: No - Related Data Allergies/Adverse Reactions: Iodinated Contrast- Oral and IV Dye [IV Dye, Iodine Containing] Allergy ( Verified 05/21/18 10:33) Past Medical History - Social History Smoking Status: Current Every Day Smoker Frequency of alcohol use: None Drug Abuse: None Family History: Reviewed & Not Pertinent Patient has suicidal ideation: No Patient has homicidal ideation: No - Past Medical History Cardiac Medical History: Reports: Hx Coronary Artery Disease - Stent in the 90s , Hx Heart Attack, Hx Hypertension Pulmonary Medical History: Reports: Hx Asthma, Hx COPD Denies: Hx Tuberculosis Endocrine Medical History: Denies: Hx Diabetes Mellitus Type 1, Hx Diabetes Mellitus Type 2 Renal/ Medical History: Denies: Hx Peritoneal Dialysis GI Medical History: Reports: Hx Ulcer Musculoskeltal Medical History: Reports Hx Arthritis Psychiatric Medical History: Reports: Hx Anxiety Denies: Hx Depression Past Surgical History: Reports: Hx Abdominal Surgery, Hx Cardiac Catheterization - 2 cardiac catheters, angioplasty, patient denies stents, Hx Cholecystectomy, Hx Coronary Stent, Hx Orthopedic Surgery - ACF, lumbar fusion - Immunizations Immunizations up to date: Yes Hx Diphtheria, Pertussis, Tetanus Vaccination: Yes Hx Pneumococcal Vaccination: 11/14/14 Review of Systems - Review of Systems Constitutional: No symptoms reported EENT: No symptoms reported Cardiovascular: No symptoms reported Respiratory: No symptoms reported Gastrointestinal: Abdominal pain, Nausea Genitourinary: No symptoms reported Male Genitourinary: No symptoms reported Musculoskeletal: No symptoms reported Skin: No symptoms reported Hematologic/Lymphatic: No symptoms reported Neurological/Psychological: No symptoms reported -: Yes All other systems reviewed and negative Physical Exam - Vital signs Vitals: Temp Pulse Resp BP Pulse Ox 98.2 F 97 18 161/83 H 94 05/21/18 10:17 05/21/18 10:17 05/21/18 10:17 05/21/18 10:17 05/21/18 10:17 Interpretation: Normal - Notes Notes: PHYSICAL EXAMINATION: GENERAL: Well-appearing, well-nourished and in no acute distress. HEAD: Atraumatic, normocephalic. EYES: Pupils equal round and reactive to light, extraocular movements intact, sclera anicteric, conjunctiva are normal. ENT: Nares patent, oropharynx clear without exudates. Moist mucous membranes. NECK: Normal range of motion, supple without lymphadenopathy LUNGS: Breath sounds clear to auscultation bilaterally and equal. No wheezes rales or rhonchi. HEART: Regular rate and rhythm without murmurs ABDOMEN: Soft, diffusely tender abdomen. No guarding, no rebound. Musculoskeletal: Normal range of motion, no pitting or edema. No cyanosis. NEUROLOGICAL: Cranial nerves grossly intact. Normal speech, normal gait. Normal sensory, motor exams PSYCH: Normal mood, normal affect. SKIN: Warm, Dry, normal turgor, no rashes or lesions noted. Course - Re-evaluation Re-evalutation: 05/21/18 11:25 On re-evaluation, patient's oxygen saturation is now at 89% on RA. Patient is a smoker but denies history of COPD. He's not on home O2. Patient now complaining of shortness of breath. PERC rule positive. CTA ordered. CT abd/pel ordered to evaluate patient's abdominal pain with elevated lipase and liver panel. 05/21/18 13:42 Labs and imaging obtained. Patient has an elevated lipase, liver enzymes, direct bilirubin. CT abdomen and pelvis shows pancreatitis versus duodenitis and a dilated common bile duct at 1.8 cm. I discussed this case with the hospitalist. He feels that the patient needs to be transferred where ERCP is available. I spoke with the resident physician at [facility], Dr. Craig. He accepts patient on behalf of Dr. Pereyra. 05/21/18 13:46 Patient is stable and agreeable with transfer. 05/21/18 18:25 Patient re-evaluated when EMS arrived. Stable. No complaints at this time. - Vital Signs Vital signs: Temp Pulse Resp BP Pulse Ox 98.6 F 97 19 173/99 H 94 05/21/18 18:06 05/21/18 10:17 05/21/18 18:03 05/21/18 18:03 05/21/18 18:03 - Laboratory Result Diagrams: 05/21/18 10:34 05/21/18 10:34 Laboratory results interpreted by me: 05/21/18 05/21/18 05/21/18 10:34 10:34 10:58 WBC 16.8 H Seg Neutrophils % 88.9 H Lymphocytes % 5.9 L Absolute Neutrophils 15.0 H Sodium 145.3 H Glucose 136 H Direct Bilirubin 0.6 H AST 104 H ALT 121 H Alkaline Phosphatase 133 H Lipase 3354.5 H Urine Protein 100 H Urine Ketones 20 H Urine Blood MODERATE H Urine Urobilinogen 2.0 H - EKG Interpretation by Me Additional EKG results interpreted by me: 05/21/18 10:39 EKG: Ventricular rate 95, para interval 156, QTc 453, normal sinus rhythm, no ischemic changes. EKG similar to 10/17/17. Discharge - Discharge Clinical Impression: Common bile duct dilatation Pancreatitis Qualifiers: Chronicity: acute Pancreatitis type: unspecified pancreatitis type Acute pancreatitis complication: unspecified Qualified Code(s): K85.90 - Acute pancreatitis without necrosis or infection, unspecified Condition: Stable Disposition: [facility] Referrals: ALYSSA SAM NP [NO LOCAL MD] - Follow up as needed
[2018-05-21 10:48] LABS: ABSOLUTE BASOPHILS # (AUTO) 0.1 10^3/uL (0.0-0.2); ABSOLUTE MONOCYTES (AUTO) 0.8 10^3/uL (0.1-1.4); BASOPHILS % (AUTO) 0.3 % (0-2); HEMATOCRIT 46.6 % (37.9-51.0); HEMOGLOBIN 16.1 g/dL (13.5-17.0); LYMPHOCYTES % (AUTO) 5.9 % (13-45); MEAN CORPUSCULAR HEMOGLOBIN 31.2 pg (27.0-33.4); MEAN CORPUSCULAR HGB CONC 34.6 g/dL (32.0-36.0); MEAN CORPUSCULAR VOLUME 90 fl (80-97); MONOCYTES % (AUTO) 4.9 % (3-13); PLATELET COUNT 227 10^3/uL (150-450); RED BLOOD COUNT 5.17 10^6/uL (4.35-5.55); SEGMENTED NEUTROPHILS % (AUTO) 88.9 % (42-78); TOTAL CELLS COUNTED % (AUTO) 100 %; WHITE BLOOD COUNT 16.8 10^3/uL (4.0-10.5)
--- NOTE | 2018-05-21 11:06 | RADIOLOGY REPORT (SQ) ---
EXAM DESCRIPTION: ACUTE ABDOMEN SERIES COMPLETED DATE/TIME: 05/21/2018 10:43 am REASON FOR STUDY: abdominal pain COMPARISON: 10/17/2017 NUMBER OF VIEWS: Three views. TECHNIQUE: Frontal chest, supine abdomen and upright/decubitus abdomen radiographic images acquired. LIMITATIONS: None. FINDINGS: CHEST: Lungs clear of infiltrates. FREE AIR: None. No abnormal gas collections. BOWEL GAS PATTERN: Nonobstructive pattern. No dilated loops or air fluid levels. CALCIFICATIONS: No suspicious calcifications. HARDWARE: Lumbar spine fusion hardware is present. Surgical clips in the right upper quadrant. SOFT TISSUES: No gross mass or suggestion of organomegaly. BONES: No acute fracture. No worrisome bone lesions. OTHER: No other significant finding. IMPRESSION: NO RADIOGRAPHIC EVIDENCE FOR ACUTE ABDOMINAL DISEASE. TECHNICAL DOCUMENTATION: JOB ID: [id number] [employer]- All Rights Reserved Reading location - IP/workstation name: [email or web address]
[2018-05-21 11:07] LABS: ALANINE AMINOTRANSFERASE 121 U/L (21-72); ALBUMIN 4.8 g/dL (3.5-5.0); ALKALINE PHOSPHATASE 133 U/L (38-126); ANION GAP 14 (5-19); ASPARTATE AMINO TRANSFERASE 104 U/L (17-59); BILIRUBIN,DIRECT 0.6 mg/dL (0.0-0.4); BILIRUBIN,TOTAL 1.3 mg/dL (0.2-1.3); BLOOD UREA NITROGEN 20 mg/dL (7-20); CALCIUM 9.5 mg/dL (8.4-10.2); CARBON DIOXIDE 24 mmol/L (22-30); CHLORIDE 107 mmol/L (98-107); CREATINE KINASE 108 U/L (55-170); GLUCOSE 136 mg/dL (75-110); POTASSIUM 4.3 mmol/L (3.6-5.0); SODIUM 145.3 mmol/L (137-145); TOTAL PROTEIN 7.6 g/dL (6.3-8.2)
[2018-05-21 11:15] LABS: APPEARANCE,URINE SLIGHTLY-CLOUDY; BILIRUBIN,URINE NEGATIVE (NEGATIVE); COLOR,URINE AMBER; GLUCOSE, URINE NEGATIVE (NEGATIVE); KETONES,URINE 20 mg/dL (NEGATIVE); LEUKOCYTE ESTERASE,URINE NEGATIVE (NEGATIVE); NITRITE,URINE NEGATIVE (NEGATIVE); PROTEIN,URINE 100 mg/dL (NEGATIVE); URINE SPECIFIC GRAVITY 1.029
[2018-05-21] MEDS ORDERED: IPRATROPIUM/ALBUTEROL 0.5-2.5 MG/3 ML AMPUL NEB ONE (11:17)
[2018-05-21 11:19] LABS: LIPASE 3354.5 U/L (23-300)
[2018-05-21] MEDS ORDERED: DIPHENHYDRAMINE HCL 50 MG/ML VIAL IV ONE (11:24)
[2018-05-21] MEDS ORDERED: METHYLPREDNISOLONE INJ 125 MG/2 ML SDV IV ONE (11:24)
[2018-05-21 11:26] LABS: TROPONIN I < 0.012 ng/mL
--- NOTE | 2018-05-21 12:50 | RADIOLOGY REPORT (SQ) ---
EXAM DESCRIPTION: CTA CHEST COMPLETED DATE/TIME: 05/21/2018 12:31 pm REASON FOR STUDY: shortness of breath COMPARISON: 06/20/2017 TECHNIQUE: CT scan of the chest performed using helical scanning technique with dynamic intravenous contrast injection. Images reviewed with lung, soft tissue and bone windows. Reconstructed coronal and sagittal MPR images reviewed. Additional 3 dimensional post-processing performed to develop Maximal Intensity Projection images (ME P). All images stored on PACS. All CT scanners at this facility use dose modulation, iterative reconstruction, and/or weight based d osing when appropriate to reduce radiation dose to as low as reasonably achievable (ALARA). [facility]: Dose Right [facility]: CareDose [facility]: Dose Right [facility]: Teradose 4D [facility]: Tattva CONTRAST TYPE AND DOSE: contrast/concentration: Isovue 370.00 mg/ml; Total Contrast Delivered: 81.0 ml; Total Saline Delivered: 110.0 ml Contrast bolus optimized for the pulmonary arteries. Not diagnostic for the aorta. RENAL FUNCTION: GFR > 60. RADIATION DOSE: CT Rad equipment meets quality standard of care and radiation dose reduction techniq ues were employed. CTDIvol: 16.5 - 25.9 mGy. DLP: 3669 mGy-cm. . LIMITATIONS: None. FINDINGS: LUNGS AND PLEURA: No masses, infiltrates, or pneumothorax. No pleural effusions or pleura l calcifications. AORTA AND GREAT VESSELS: No aneurysm. Contrast bolus not optimized for the aorta. HEART: No pericardial effusion. No significant coronary artery calcifications. PULMONARY ARTERIES: No emboli visualized in the main pulmonary arteries or the segmental branches. HILAR AND MEDIASTINAL STRUCTURES: No identified masses or abnormal nodes. HARDWARE: None in the chest. UPPER ABDOMEN: See separate report of the CT of the abdomen. THYROID AND OTHER SOFT TISSUES: No masses. No adenopathy. BONES: No acute or significant finding. 3D MIPS: Confirm above findings. OTHER: No other significant finding. IMPRESSION: NORMAL CTA OF THE CHEST. NO PULMONARY EMBOLI. No evidence of aortic dissection. COMMENT: Quality ID # 436: Final reports with documentation of one or more dose reduction techniques (e.g., Automated exposure control, adjustment of the mA and/or kV according to patient size, use of iterative reconstruction technique) TECHNICAL DOCUMENTATION: JOB ID: [id number] [employer]- All Rights Reserved Reading location - IP/workstation name: [email or web address]
--- NOTE | 2018-05-21 12:59 | RADIOLOGY REPORT (SQ) ---
EXAM DESCRIPTION: CT ABD/PELVIS WITH IV ONLY COMPLETED DATE/TIME: 05/21/2018 12:31 pm REASON FOR STUDY: diffuse abdominal pain. h/o AAA COMPARISON: None. TECHNIQUE: CT scan of the abdomen and pelvis performed using helical scanning technique with dynamic intravenous contrast injection. No oral contrast. Images reviewed with lung, soft tissue, and bone windows. Reconstructed coronal and sagittal MPR images reviewed. Delayed images for evaluation of the urinary system also acquired. All images stored on PACS. All CT scanners at this facility use dose modulation, iterative reconstruction, and/or weight based d osing when appropriate to reduce radiation dose to as low as reasonably achievable (ALARA). [facility]: Dose Right [facility]: CareDose [facility]: Dose Right [facility]: Teradose 4D [facility]: Snapd App CONTRAST TYPE AND DOSE: 81 mL Isovue 370- low osmolar. RENAL FUNCTION: GFR > 60. RADIATION DOSE: . LIMITATIONS: None. FINDINGS: LOWER CHEST: See separate report of the CT of the chest. LIVER: Hepatic steatosis and mild hepatomegaly is present. The common bile duct is dilated to 1.8 cm in diameter. SPLEEN: Normal size. No focal lesions. PANCREAS: There is marked inflammation about the head of the pancreas. No definite pancreatic mass i s identified. There are few scattered calcifications noted about the tail of the pancreas. GALLBLADDER: Surgically absent. ADRENAL GLANDS: No significant masses or asymmetry. RIGHT KIDNEY AND URETER: No solid masses. No significant calcifications. No hydronephrosis or hyd roureter. LEFT KIDNEY AND URETER: No solid masses. No significant calcifications. No hydronephrosis or hydr oureter. AORTA AND VESSELS: There is an irregular shaped infrarenal abdominal aortic aneurysm measuring 3.7 cm in maximum transverse dimension. No evidence of iliac artery aneurysm. RETROPERITONEUM: No retroperitoneal adenopathy, hemorrhage or masses. BOWEL AND PERITONEAL CAVITY: Marked inflammatory change noted about the second-third portions of the duodenum with bowel wall thickening and free fluid noted within the right upper quadrant. Remainder of the visualized gastrointestinal tract is grossly unremarkable. APPENDIX: Normal. PELVIS: No mass. No free fluid. Normal bladder. ABDOMINAL WALL: No masses. No hernias. BONES: No significant or acute findings. OTHER: No other significant finding. IMPRESSION: 1. Marked inflammation about the head of pancreas. This likely represents acute pancre atitis, however a primary duodenitis is not excluded given the wall thickening of the 2nd and 3rd por tions of the duodenum. Recommend correlation with patient's lab values. 2. Dilated common bile duct. The common bile duct is dilated up to 1.8 cm in diameter. While the c ommon bile duct can be dilated in a postcholecystectomy patient, 1.8 cm is larger than expected. Rec ommend clinical correlation. 3. Hepatic steatosis with mild hepatomegaly 4. 3.7 cm irregular-shaped infrarenal abdominal aortic aneurysm. No evidence of aneurysm rupture. TECHNICAL DOCUMENTATION: JOB ID: [id number] Quality ID # 436: Final reports with documentation of one or more dose reduction techniques (e.g., Au tomated exposure control, adjustment of the mA and/or kV according to patient size, use of iterative reconstruction technique) 2010 [employer]- All Rights Reserved Reading location - IP/workstation name: AC
[2018-05-21] MEDS ORDERED: MAG HYDROX/AL HYDROX/SIMETH SUSP 30 ML UDCUP PO ONE (13:08)
[2018-05-21] MEDS ORDERED: FAMOTIDINE INJ/PF 20 MG/2 ML SDV IV ONE (13:08)
[2018-05-21] MEDS ORDERED: LIDOCAINE 2% VISCOUS SOLN 20 ML UDCUP PO ONE (13:08)
[2018-05-21] MEDS ORDERED: METOCLOPRAMIDE HCL ORAL SOLN 10 MG/10 ML UDCUP PO ONE (13:08)
[2018-05-21] MEDS ORDERED: NORMAL SALINE 1000 ML 1,000 ML IV ONE (13:09)
--- NOTE | 2018-05-21 15:23 | EKG REPORT ---
SEVERITY:- NORMAL ECG - SINUS RHYTHM : Confirmed by: Yosi Ta MD 21-May-2018 15:22:58
[2018-05-21] MEDS ORDERED: CLONIDINE HCL 0.1 MG TABLET PO ONE (16:28)
[2018-05-21 18:24] VITALS: BP 173/99
== END 2018-05-21 18:35 | disposition short-term general hospital (02) ==
LOC: ER 10:13
DX: K85.90 Acute pancreatitis without necrosis or infection, unspecified (principal); K82.8 Other specified diseases of gallbladder; R10.13 Epigastric pain; R07.9 Chest pain, unspecified; R11.0 Nausea; F17.200 Nicotine dependence, unspecified, uncomplicated; I25.10 Atherosclerotic heart disease of native coronary artery without angina pectoris; I25.2 Old myocardial infarction; Z90.49 Acquired absence of other specified parts of digestive tract; Z98.1 Arthrodesis status
CPT/HCPCS: 93005; 96376; 94640; 99285; 96361; 96374; 96375; 36415; 82553; 82550; 83690; 85025; 80053; 81001; 84484; 74022; 71275; 74177; 93010; A9270 ×4; J1200; J3490; J2930; J2270; J7030; S0028; J7620; S0119

== ENCOUNTER 2018-05-30 21:53 | Emergency (ER) | payer MEDICARE ==
[2018-05-30] MEDS ORDERED: FENTANYL CITRATE INJ/PF 100 MCG/2 ML AMPUL IV ONE ×2 (22:23→23:32)
[2018-05-30 22:24] LABS: ABSOLUTE BASOPHILS # (AUTO) 0.1 10^3/uL (0.0-0.2); ABSOLUTE EOSINOPHILS # (AUTO) 0.1 10^3/uL (0.0-0.6); ABSOLUTE LYMPHOCYTES (AUTO) 1.4 10^3/uL (0.5-4.7); ABSOLUTE MONOCYTES (AUTO) 0.8 10^3/uL (0.1-1.4); ABSOLUTE NEUT (AUTO) 11.4 10^3/uL (1.7-8.2); BASOPHILS % (AUTO) 0.9 % (0-2); EOSINOPHILS % (AUTO) 0.6 % (0-6); HEMATOCRIT 38.6 % (37.9-51.0); HEMOGLOBIN 13.3 g/dL (13.5-17.0); LYMPHOCYTES % (AUTO) 9.9 % (13-45); MEAN CORPUSCULAR HGB CONC 34.3 g/dL (32.0-36.0); MEAN CORPUSCULAR VOLUME 90 fl (80-97); PLATELET COUNT 498 10^3/uL (150-450); RED BLOOD COUNT 4.27 10^6/uL (4.35-5.55); SEGMENTED NEUTROPHILS % (AUTO) 82.6 % (42-78); TOTAL CELLS COUNTED % (AUTO) 100 %; WHITE BLOOD COUNT 13.8 10^3/uL (4.0-10.5)
[2018-05-30] MEDS ORDERED: NORMAL SALINE 1000 ML 1,000 ML IV ONE (22:24)
[2018-05-30] MEDS ORDERED: ONDANSETRON 4 MG TAB.RAPDIS PO ONE (22:24)
[2018-05-30 22:38] LABS: ALANINE AMINOTRANSFERASE 48 U/L (21-72); ALBUMIN 3.3 g/dL (3.5-5.0); ALKALINE PHOSPHATASE 99 U/L (38-126); ANION GAP 14 (5-19); ASPARTATE AMINO TRANSFERASE 69 U/L (17-59); BILIRUBIN,DIRECT 0.9 mg/dL (0.0-0.4); BILIRUBIN,TOTAL 1.4 mg/dL (0.2-1.3); BLOOD UREA NITROGEN 18 mg/dL (7-20); CALCIUM 8.4 mg/dL (8.4-10.2); CARBON DIOXIDE 21 mmol/L (22-30); CHLORIDE 104 mmol/L (98-107); GLUCOSE 173 mg/dL (75-110); LIPASE 180.9 U/L (23-300); SODIUM 139.1 mmol/L (137-145); TOTAL PROTEIN 6.7 g/dL (6.3-8.2)
[2018-05-30 22:40] LABS: POTASSIUM 2.7 mmol/L (3.6-5.0)
[2018-05-30 22:53] LABS: AMORPHOUS SEDIMENT,URINE TRACE /HPF; APPEARANCE,URINE CLOUDY; BILIRUBIN,URINE SMALL (NEGATIVE); COLOR,URINE AMBER; GLUCOSE, URINE 50 mg/dL (NEGATIVE); KETONES,URINE NEGATIVE (NEGATIVE); LEUKOCYTE ESTERASE,URINE NEGATIVE (NEGATIVE); NITRITE,URINE NEGATIVE (NEGATIVE); PROTEIN,URINE >=500 mg/dL (NEGATIVE); URINE SPECIFIC GRAVITY 1.019
[2018-05-30] MEDS ORDERED: POTASSI CL 20 MEQ/50 ML RIDER 20 MEQ/50 ML RTUPB IV ONE (23:24)
[2018-05-31] MEDS ORDERED: HYDROMORPHONE HCL INJ/PF 2 MG/ML AMPULE IV ONE (01:12)
[2018-05-31] MEDS ORDERED: PROMETHAZINE HCL INJ 25 MG/1 ML VIAL IM ONE (01:13)
--- NOTE | 2018-05-31 02:18 | RADIOLOGY REPORT (SQ) ---
EXAM DESCRIPTION: CT ABDOMEN PELVIS WITHOUT IV CONTRAST COMPLETED DATE/TME: 05/31/2018 00:11 CLINICAL HISTORY: 57 years, Male, abdominal pain post ERCP COMPARISON: 03/20/2018 TECHNIQUE: Axial CT images of the abdomen and pelvis were obtained without contrast. Sagittal and coronal reformats were performed. DLP 748 Images stored on PACS. All CT scanners at this facility use dose modulation, iterative reconstruction, and/or weight based dosing when appropriate to reduce radiation dose to as low as reasonably achievable (ALARA). [facility]: Dose Right [facility]: CareDose [facility]: Dose Right [facility]: Teradose 4D [facility]: Smart TensorComm LIMITATIONS: None. FINDINGS: The lung bases are clear. There are changes of a cholecystectomy. The liver, spleen, and adrenal glands are unremarkable. Since the previous examination, soft tissue density with stranding is seen near the pancreatic head and near the gallbladder fossa. There is no intraperitoneal free air. There is a mild amount of fluid noted within the pelvis. There is no lymphadenopathy. The stomach, small bowel, appendix, and colon appear unremarkable. The prostate gland is unremarkable. The urinary bladder is unremarkable. There are postsurgical changes at L4-S1. IMPRESSION: Development of soft tissue density with surrounding stranding noted near the pancreatic head and gallbladder fossa. These findings are likely related to acute pancreatitis. Recommend correlation with amylase and lipase. Mild amount of free fluid within the pelvis. TECHNICAL DOCUMENTATION: Quality ID # 436: Final reports with documentation of one or more dose reduction techniques (e.g., Automated exposure control, adjustment of the mA and/or kV according to patient size, use of iterative reconstruction technique) 2010 [employer]- All Rights Reserved
--- NOTE | 2018-05-31 03:05 | ER Document Report ---
ED General - General TRAVEL OUTSIDE OF THE [place] IN LAST 30 DAYS: No <JAM GILLESPIE - Last Filed: 05/31/18 03:19> <KENTRELL ALAN - Last Filed: 05/31/18 16:18> - General Chief Complaint: Abdominal Pain Stated Complaint: ABDOMINAL PAIN Time Seen by Provider: 05/30/18 22:09 Notes: Patient is a pleasant 57-year-old male who presents with complaint of sudden onset severe epigastric and right upper quadrant abdominal pain with nausea and vomiting. He said this happened yesterday. He was discharged from [facility] [place] on Tuesday after being transferred therefore pancreatitis with elevated liver enzymes. At that time he had a sphincterotomy as well as a pancreatic stent placed. He also had removal of biliary sludge. He says he was feeling improved at time of discharge but then started having a severe pain and has been vomiting continuously for last 24 hours and therefore came to the ER. No blood in his emesis. No blood in stool. He says he had a fever of 101 at home yesterday. No chest pain. No shortness of breath. No other complaints at this time. Denies drinking alcohol. (JAM GILLESPIE) - Related Data Allergies/Adverse Reactions: Iodinated Contrast- Oral and IV Dye [IV Dye, Iodine Containing] Allergy ( Verified 05/21/18 10:33) Past Medical History - Social History Smoking Status: Current Every Day Smoker Chew tobacco use (# tins/day): No Frequency of alcohol use: None Drug Abuse: None Family History: Reviewed & Not Pertinent Patient has suicidal ideation: No Patient has homicidal ideation: No - Past Medical History Cardiac Medical History: Reports: Hx Coronary Artery Disease - Stent in the 90s , Hx Heart Attack, Hx Hypertension Pulmonary Medical History: Reports: Hx Asthma, Hx COPD Denies: Hx Tuberculosis Endocrine Medical History: Denies: Hx Diabetes Mellitus Type 1, Hx Diabetes Mellitus Type 2 Renal/ Medical History: Denies: Hx Peritoneal Dialysis GI Medical History: Reports: Hx Ulcer Musculoskeletal Medical History: Reports Hx Arthritis Psychiatric Medical History: Reports: Hx Anxiety Denies: Hx Depression Past Surgical History: Reports: Hx Abdominal Surgery, Hx Cardiac Catheterization - 2 cardiac catheters, angioplasty, patient denies stents, Hx Cholecystectomy, Hx Coronary Stent, Hx Orthopedic Surgery - ACF, lumbar fusion - Immunizations Immunizations up to date: Yes Hx Diphtheria, Pertussis, Tetanus Vaccination: Yes Hx Pneumococcal Vaccination: 11/14/14 <JAM GILLESPIE - Last Filed: 05/31/18 03:19> - Vital signs Vitals: Temp Pulse Resp BP Pulse Ox 98.2 F 88 22 H 92/56 L 95 05/30/18 22:06 05/30/18 22:06 05/30/18 22:06 05/30/18 22:06 05/30/18 22:06 Course - Laboratory Result Diagrams: 05/30/18 22:17 05/30/18 22:17 <JAM GILLESPIE - Last Filed: 05/31/18 03:19> - Laboratory Result Diagrams: 05/30/18 22:17 05/30/18 22:17 <KENTRELL ALAN - Last Filed: 05/31/18 16:18> - Re-evaluation Re-evalutation: 05/31/18 03:[address] scan shows a soft tissue density with surrounding stranding the pancreatic head and gallbladder fossa. Following the patient's procedure concerning this could mean that patient possibly is a biliary leak or possibly could be developing infection. The infection is less likely being the patient does not have a leukocytosis however he does claim he had a fever of 101 at home and therefore I will cover him with antibiotics in case there is a postprocedural infection. I did call back to [facility] [place] and spoke with Dr. Gonzalez who agrees to accept the patient on behalf of Dr. Yeung. I will keep the patient n.p.o. We will give him IV maintenance fluids. We will control his pain until bed becomes available at [facility]. Dictation of this chart was performed using voice recognition software; therefore, there may be some unintended grammatical errors. (JAM GILLESPIE) - Vital Signs Vital signs: Temp Pulse Resp BP Pulse Ox 98.1 F 88 29 H 114/58 L 94 05/31/18 10:57 05/30/18 22:06 05/31/18 14:01 05/31/18 14:00 05/31/18 13:01 - Laboratory Laboratory results interpreted by me: 05/30/18 05/30/18 05/30/18 22:17 22:17 22:17 WBC 13.8 H RBC 4.27 L Hgb 13.3 L Plt Count 498 H Seg Neutrophils % 82.6 H Lymphocytes % 9.9 L Absolute Neutrophils 11.4 H Potassium 2.7 L* Carbon Dioxide 21 L Creatinine 1.48 H Est GFR ( Amer) 59 L Est GFR (Non-Af Amer) 49 L Glucose 173 H Magnesium 2.4 H Total Bilirubin 1.4 H Direct Bilirubin 0.9 H AST 69 H Albumin 3.3 L Urine Protein Urine Glucose (UA) Urine Bilirubin Urine Urobilinogen 05/30/18 22:32 WBC RBC Hgb Plt Count Seg Neutrophils % Lymphocytes % Absolute Neutrophils Potassium Carbon Dioxide Creatinine Est GFR ( Amer) Est GFR (Non-Af Amer) Glucose Magnesium Total Bilirubin Direct Bilirubin AST Albumin Urine Protein >=500 H Urine Glucose (UA) 50 H Urine Bilirubin SMALL H Urine Urobilinogen 2.0 H Discharge <JAM GILLESPIE - Last Filed: 05/31/18 03:19> <KENTRELL ALAN - Last Filed: 05/31/18 16:18> - Discharge Clinical Impression: Post-operative pain, Renal insufficiency, mild, Hypokalemia Condition: Stable Disposition: [facility]
[2018-05-31] MEDS ORDERED: FENTANYL CITRATE INJ/PF 100 MCG/2 ML AMPUL IV ONE (03:10)
[2018-05-31] MEDS ORDERED: NORMAL SALINE 1000 ML 1,000 ML IV ONE (03:11)
[2018-05-31] MEDS ORDERED: POTASSI CL 20 MEQ/50 ML RIDER 20 MEQ/50 ML RTUPB IV ONE (06:21)
[2018-05-31] MEDS ORDERED: ERTAPENEM SODIUM INJ 1 GM VIAL IV SCH ×2 (06:30→10:00)
[2018-05-31] MEDS: FENTANYL CITRATE INJ/PF 100 MCG/2 ML AMPUL IV PRN ×4 (06:36→16:13)
--- NOTE | 2018-05-31 16:22 | ER Document Report ---
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 His vital signs are stable and he has had no problems throughout the day today. He is stable for transport at this time.
[2018-05-31 16:26] VITALS: BP 109/62
== END 2018-05-31 16:26 | disposition short-term general hospital (02) ==
LOC: ER 21:53
DX: G89.18 Other acute postprocedural pain (principal); R10.13 Epigastric pain; R10.11 Right upper quadrant pain; N28.9 Disorder of kidney and ureter, unspecified; E87.6 Hypokalemia; R11.2 Nausea with vomiting, unspecified; F17.200 Nicotine dependence, unspecified, uncomplicated; I10 Essential (primary) hypertension; I25.2 Old myocardial infarction
CPT/HCPCS: 96376; 99285; 96372; 96361; 96375; 96365; 96366; 36415; 83690; 83735; 85025; 80053; 81001; 87493; 74176; A9270; J3010 ×2; J1335; J1170; J2550; J3480 ×2; J7030 ×2; S0119

== ENCOUNTER 2018-06-11 17:07 | Emergency (ER) | payer MEDICARE ==
[2018-06-11] MEDS ORDERED: NORMAL SALINE 1000 ML 1,000 ML IV ONE (17:59)
[2018-06-11] MEDS ORDERED: DIPHENHYDRAMINE HCL 50 MG/ML VIAL IV ONE ×2 (17:59→20:46)
[2018-06-11] MEDS ORDERED: METOCLOPRAMIDE HCL INJ/PF 10 MG/2 ML SDV IV ONE (17:59)
--- NOTE | 2018-06-11 18:16 | ER Document Report ---
ED Medical Screen (RME) - General Chief Complaint: Abdominal Pain Stated Complaint: NAUSEA,ABDOMINAL PAIN Time Seen by Provider: 06/11/18 17:53 Mode of Arrival: Medic Information source: Patient Notes: This is a 57-year-old man presenting to the emergency room with abdominal pain. He reports having an 11 day hospitalization at [facility] during which he had an ERCP with stent placement. He states he was feeling better when he left the hospital but started having nausea and vomiting a day later (last Tuesday). He presented to the emergency room with persistent nausea, vomiting and upper abdominal pain for the past 6 days. TRAVEL OUTSIDE OF THE [place] IN LAST 30 DAYS: No - Related Data Allergies/Adverse Reactions: Iodinated Contrast- Oral and IV Dye [IV Dye, Iodine Containing] Allergy ( Verified 06/11/18 17:56) Home Medications: oxycodone 10mg qid, valsartan, Past Medical History - Social History Chew tobacco use (# tins/day): No Frequency of alcohol use: None Drug Abuse: None - Past Medical History Cardiac Medical History: Reports: Hx Coronary Artery Disease - Stent in the 90s , Hx Heart Attack, Hx Hypertension Pulmonary Medical History: Reports: Hx Asthma, Hx COPD Denies: Hx Tuberculosis Endocrine Medical History: Denies: Hx Diabetes Mellitus Type 1, Hx Diabetes Mellitus Type 2 Renal/ Medical History: Denies: Hx Peritoneal Dialysis GI Medical History: Reports: Hx Ulcer Musculoskeltal Medical History: Reports Hx Arthritis Psychiatric Medical History: Reports: Hx Anxiety Denies: Hx Depression Past Surgical History: Reports: Hx Abdominal Surgery, Hx Cardiac Catheterization - 2 cardiac catheters, angioplasty, patient denies stents, Hx Cholecystectomy, Hx Coronary Stent, Hx Orthopedic Surgery - ACF, lumbar fusion - Immunizations Immunizations up to date: Yes Hx Diphtheria, Pertussis, Tetanus Vaccination: Yes Physical Exam - Vital signs Vitals: Temp Pulse Resp BP Pulse Ox 97.5 F 78 24 H 102/60 96 06/11/18 17:16 06/11/18 17:16 06/11/18 17:16 06/11/18 17:16 06/11/18 17:16 Course - Vital Signs Vital signs: Temp Pulse Resp BP Pulse Ox 97.5 F 78 24 H 102/60 96 06/11/18 17:16 06/11/18 17:16 06/11/18 17:16 06/11/18 17:16 06/11/18 17:16 Doctor's Discharge - Discharge Referrals: TEDDY WILSON MD [Primary Care Provider] - Follow up as needed
--- NOTE | 2018-06-11 18:23 | ER Document Report ---
ED General - General Chief Complaint: Abdominal Pain Stated Complaint: NAUSEA,ABDOMINAL PAIN Time Seen by Provider: 06/11/18 17:53 Mode of Arrival: Medic Information source: Patient, Emergency Med Personnel Notes: 57 yr old male who had ercp 11 days ago with 2 stents placed presents with complaints of 6 day duration of vomiting and unable ot eat solid foods. pt denies any fevers or chills. admits to feeling weak. ems found patient hypotensive TRAVEL OUTSIDE OF THE [place] IN LAST 30 DAYS: No - HPI Onset: Last week Onset/Duration: Persistent Quality of pain: Cramping Severity: Mild Pain Level: 2 Associated symptoms: Nausea, Vomiting Exacerbated by: Denies Relieved by: Denies Similar symptoms previously: Yes Recently seen / treated by doctor: Yes - Related Data Allergies/Adverse Reactions: Iodinated Contrast- Oral and IV Dye [IV Dye, Iodine Containing] Allergy ( Verified 06/11/18 17:56) Home Medications: oxycodone 10mg qid, valsartan, Past Medical History - General Information source: Patient - Social History Smoking Status: Current Every Day Smoker Cigarette use (# per day): Yes Chew tobacco use (# tins/day): No Smoking Education Provided: No Frequency of alcohol use: None Drug Abuse: None Family History: Reviewed & Not Pertinent Patient has suicidal ideation: No Patient has homicidal ideation: No - Past Medical History Cardiac Medical History: Reports: Hx Coronary Artery Disease - Stent in the 90s , Hx Heart Attack, Hx Hypertension Pulmonary Medical History: Reports: Hx Asthma, Hx COPD Denies: Hx Tuberculosis Endocrine Medical History: Denies: Hx Diabetes Mellitus Type 1, Hx Diabetes Mellitus Type 2 Renal/ Medical History: Denies: Hx Peritoneal Dialysis GI Medical History: Reports: Hx Ulcer Musculoskeletal Medical History: Reports Hx Arthritis Psychiatric Medical History: Reports: Hx Anxiety Denies: Hx Depression Past Surgical History: Reports: Hx Abdominal Surgery, Hx Cardiac Catheterization - 2 cardiac catheters, angioplasty, patient denies stents, Hx Cholecystectomy, Hx Coronary Stent, Hx Orthopedic Surgery - ACF, lumbar fusion - Immunizations Immunizations up to date: Yes Hx Diphtheria, Pertussis, Tetanus Vaccination: Yes Hx Pneumococcal Vaccination: 11/14/14 Review of Systems - Review of Systems Notes: REVIEW OF SYSTEMS: CONSTITUTIONAL : Denies fever, chills, or sweats. Denies recent illness. EENT: Denies eye, ear, throat, or mouth pain or symptoms. Denies nasal or sinus congestion or discharge. Denies throat, tongue, or mouth swelling or difficulty swallowing. CARDIOVASCULAR: Denies chest pain. Denies palpitations or racing or irregular heart beat. Denies ankle edema. RESPIRATORY: Denies cough, cold, or chest congestion. Denies shortness of breath, difficulty breathing, or wheezing. GASTROINTESTINAL: Admits to abdominal pain nausea vomiting GENITOURINARY: Denies difficulty urinating, painful urination, burning, frequency, blood in urine, or discharge. MUSCULOSKELETAL: Denies back or neck pain or stiffness. Denies joint pain or swelling. SKIN: Denies rash, lesions or sores. HEMATOLOGIC : Denies easy bruising or bleeding. LYMPHATIC: Denies swollen, enlarged glands. NEUROLOGICAL: Denies confusion or altered mental status. Denies passing out or loss of consciousness. Denies dizziness or lightheadedness. Denies headache. Denies weakness or paralysis or loss of use of either side. Denies problems with gait or speech. Denies sensory loss, numbness, or tingling. Denies seizures. PSYCHIATRIC: Denies anxiety or stress. Denies depression, suicidal ideation, or homicidal ideation. ALL OTHER SYSTEMS REVIEWED AND NEGATIVE. Dictation was performed using [email or web address] voice recognition software PHYSICAL EXAMINATION: GENERAL: Well-appearing, well-nourished and in no acute distress. HEAD: Atraumatic, normocephalic. EYES: Pupils equal round and reactive to light, extraocular movements intact, sclera anicteric, conjunctiva are normal. ENT: Nares patent, oropharynx clear without exudates. Moist mucous membranes. NECK: Normal range of motion, supple without lymphadenopathy LUNGS: Breath sounds clear to auscultation bilaterally and equal. No wheezes rales or rhonchi. HEART: Regular rate and rhythm without murmurs ABDOMEN: Soft, tender in the right upper quadrant no rebound guarding Musculoskeletal: Normal range of motion, no pitting or edema. No cyanosis. NEUROLOGICAL: Cranial nerves grossly intact. Normal speech, normal gait. Normal sensory, motor exams PSYCH: Normal mood, normal affect. SKIN: Warm, Dry, normal turgor, no rashes or lesions noted. Physical Exam - Vital signs Vitals: Temp Pulse Resp BP Pulse Ox 97.5 F 78 24 H 102/60 96 06/11/18 17:16 06/11/18 17:16 06/11/18 17:16 06/11/18 17:16 06/11/18 17:16 Course - Re-evaluation Re-evalutation: 06/11/18 18:49 Lab work pending to evaluate if there is any blockage of the stent otherwise patient was hypotensive was given IV fluids blood pressure has stabilized 06/11/18 23:18 Dr Colón accepts patient for large fluid collection, will start zosyn, further hydration until transfer - Vital Signs Vital signs: Temp Pulse Resp BP Pulse Ox 97.5 F 78 16 105/68 100 06/11/18 17:16 06/11/18 17:16 06/11/18 19:00 06/11/18 18:46 06/11/18 19:00 - Laboratory Result Diagrams: 06/11/18 18:53 06/11/18 18:53 Laboratory results interpreted by me: 06/11/18 06/11/18 18:53 18:53 RBC 3.76 L Hgb 11.5 L Hct 33.8 L RDW 14.2 H Metamyelocytes % 1 H Potassium 3.3 L Calcium 8.0 L Direct Bilirubin 0.6 H Total Protein 6.0 L Albumin 2.8 L - Diagnostic Test Radiology reviewed: Image reviewed Discharge - Discharge Clinical Impression: Fluid collection at surgical site Qualifiers: Encounter type: initial encounter Qualified Code(s): T88.8XXA - Other specified complications of surgical and medical care, not elsewhere classified, initial encounter Condition: Fair Disposition: [facility] Referrals: TEDDY WILSON MD [Primary Care Provider] - Follow up as needed
[2018-06-11] MEDS ORDERED: HYDROMORPHONE HCL INJ/PF 2 MG/ML AMPULE IV ONE ×2 (18:28→23:04)
[2018-06-11 19:17] LABS: HEMATOCRIT 33.8 % (37.9-51.0); HEMOGLOBIN 11.5 g/dL (13.5-17.0); MEAN CORPUSCULAR HEMOGLOBIN 30.5 pg (27.0-33.4); MEAN CORPUSCULAR VOLUME 90 fl (80-97); PLATELET COUNT 416 10^3/uL (150-450); RED BLOOD COUNT 3.76 10^6/uL (4.35-5.55); RED CELL DISTRIBUTION WIDTH 14.2 % (11.5-14.0); WHITE BLOOD COUNT 7.3 10^3/uL (4.0-10.5)
[2018-06-11 19:49] LABS: ALANINE AMINOTRANSFERASE 35 U/L (21-72); ALBUMIN 2.8 g/dL (3.5-5.0); ALKALINE PHOSPHATASE 74 U/L (38-126); ANION GAP 9 (5-19); ASPARTATE AMINO TRANSFERASE 54 U/L (17-59); BILIRUBIN,DIRECT 0.6 mg/dL (0.0-0.4); BILIRUBIN,TOTAL 0.9 mg/dL (0.2-1.3); BLOOD UREA NITROGEN 11 mg/dL (7-20); CARBON DIOXIDE 26 mmol/L (22-30); CHLORIDE 105 mmol/L (98-107); GLUCOSE 91 mg/dL (75-110); LIPASE 97.2 U/L (23-300); POTASSIUM 3.3 mmol/L (3.6-5.0); SODIUM 139.5 mmol/L (137-145)
[2018-06-11 19:59] LABS: ABSOLUTE LYMPHOCYTES# (MANUAL) 1.9 10^3/uL (0.5-4.7); ABSOLUTE MONOCYTES # (MANUAL) 0.4 10^3/uL (0.1-1.4); ABSOLUTE NEUTROPHILS# (MANUAL) 4.8 10^3/uL (1.7-8.2); BASOPHILS % (MANUAL) 1 % (0-2); EOSINOPHILS % (MANUAL) 1 % (0-6); LYMPHOCYTES % (MANUAL) 25 % (13-45); METAMYELOCYTES % (MANUAL) 1 % (0); MONOCYTES % (MANUAL) 6 % (3-13); SEGMENTED NEUTROPHILS % (MAN) 65 % (42-78); TOTAL CELLS COUNTED 100
[2018-06-11 20:01] LABS: ANISOCYTOSIS SLIGHT; TOXIC GRANULATION 1+; TOXIC VACUOLATION PRESENT
[2018-06-11 20:02] LABS: HYPOCHROMASIA SLIGHT; PLATELET COMMENT ADEQUATE
[2018-06-11] MEDS ORDERED: FAMOTIDINE INJ/PF 20 MG/2 ML SDV IV ONE (20:46)
[2018-06-11] MEDS ORDERED: METHYLPREDNISOLONE INJ 125 MG/2 ML SDV IV ONE (20:46)
--- NOTE | 2018-06-11 22:35 | RADIOLOGY REPORT (SQ) ---
EXAM DESCRIPTION: CT ABD/PELVIS WITH IV ONLY COMPLETED DATE/TIME: 06/11/2018 10:05 pm REASON FOR STUDY: RUQ pain, recent ercp stent palcement COMPARISON: 05/21/2018 TECHNIQUE: CT scan of the abdomen and pelvis performed using helical scanning technique with dynamic intravenous contrast injection. No oral contrast. Images reviewed with lung, soft tissue, and bone windows. Reconstructed coronal and sagittal MPR images reviewed. Delayed images for evaluation of the urinary system also acquired. All images stored on PACS. All CT scanners at this facility use dose modulation, iterative reconstruction, and/or weight based d osing when appropriate to reduce radiation dose to as low as reasonably achievable (ALARA). [facility]: Dose Right [facility]: CareDose [facility]: Dose Right [facility]: Teradose 4D [facility]: Cytosorbents CONTRAST TYPE AND DOSE: contrast/concentration: Isovue 370.00 mg/ml; Total Contrast Delivered: 99.0 ml; Total Saline Delivered: 35.9 ml RENAL FUNCTION: GFR > 60. RADIATION DOSE: CT Rad equipment meets quality standard of care and radiation dose reduction techniq ues were employed. CTDIvol: 15.2 - 17.7 mGy. DLP: 1816 mGy-cm.. LIMITATIONS: None. FINDINGS: Compared to the prior examination there has been interval development of the large heterog eneous fluid collection in the right upper quadrant -retroperitoneum containing numerous pockets of f ree air, consistent with necrosis, exclude infection clinically. This area is approximately 7.7 cm i n greatest dimension and in broad contact with the pancreatic head, common bile duct, and duodenum. There is fluid extension into the posterior duodenal fat and right anterior pararenal space. Broad m argin of contact with the inferior right lobe of the liver and hepatic flexure of the colon. Remaind er the exam is unchanged. OTHER: No other significant finding. IMPRESSION: Compared to the prior examination there has been interval development of the large heter ogeneous fluid collection in the right upper quadrant -retroperitoneum containing numerous pockets of free air, consistent with necrosis, exclude infection clinically. This area is approximately 7.7 cm in greatest dimension and in broad contact with the pancreatic head, common bile duct, and duodenum. There is fluid extension into the posterior duodenal fat and right anterior pararenal space. Broad margin of contact with the inferior right lobe of the liver and hepatic flexure of the colon. TECHNICAL DOCUMENTATION: JOB ID: [id number] Quality ID # [id number]: Final reports with documentation of one or more dose reduction techniques (e.g., Au tomated exposure control, adjustment of the mA and/or kV according to patient size, use of iterative reconstruction technique) 2010 [employer]- All Rights Reserved Reading location - IP/workstation name: [email or web address]
[2018-06-11] MEDS ORDERED: PIPERACILLIN/TAZOBACTAM 3.375 GM VIAL IV ONE (22:54)
[2018-06-11] MEDS ORDERED: NORMAL SALINE 1000 ML 1,000 ML IV PRN (22:55)
[2018-06-12 00:57] VITALS: BP 103/63
== END 2018-06-12 00:55 | disposition short-term general hospital (02) ==
LOC: ER 17:07
DX: T81.89XA Other complications of procedures, not elsewhere classified, initial encounter (principal); Y83.8 Other surgical procedures as the cause of abnormal reaction of the patient, or of later complication, without mention of misadventure at the time of the procedure; R10.9 Unspecified abdominal pain; R10.811 Right upper quadrant abdominal tenderness; R11.2 Nausea with vomiting, unspecified; I10 Essential (primary) hypertension; I25.10 Atherosclerotic heart disease of native coronary artery without angina pectoris; J44.9 Chronic obstructive pulmonary disease, unspecified; Z91.041 Radiographic dye allergy status; Z79.899 Other long term (current) drug therapy
CPT/HCPCS: 96376; 99284; 96361; 96375; 96365; 36415; 83690; 85025; 80053; 74177; J1200; J2930; J2765; J1170 ×2; J7030; S0028; J2543

== ENCOUNTER 2018-07-07 15:29 | Emergency (ER) | payer MEDICARE, MEDICAID ==
[2018-07-07] MEDS ORDERED: HYDROMORPHONE HCL INJ/PF 2 MG/ML AMPULE IV ONE ×2 (15:43→18:37)
[2018-07-07] MEDS ORDERED: ONDANSETRON HCL INJ/PF 4 MG/2 ML SDV IV ONE ×2 (15:44→18:38)
--- NOTE | 2018-07-07 15:50 | ER Document Report ---
ED General - General Chief Complaint: Abdominal Pain Stated Complaint: ABDOMINAL PAIN Time Seen by Provider: 07/07/18 15:33 TRAVEL OUTSIDE OF THE [place]. IN LAST 30 DAYS: No - HPI Notes: Patient is a 57-year-old male with a history of hypertension who presents to the ED complaining of right-sided abdominal pain that has been worsening over the last 2 days since his discharge from [facility]. Patient states that he was transferred from this facility about 30 days ago and was sent to [facility] for a cyst/infection to the pancreas. Patient states that he had a feeding tube placed that time and surgical removal of that cyst. He was just discharged 2 days ago and is feeling much better, but he started to go "downhill" thereafter. Patient states that he has been feeling weak and nauseated as well as having abdominal pain. He denies any drug allergies. Patient states that he had been eating and drinking without any difficulties, but did have a decreased p.o. intake. He has been urinating normally and having normal bowel movements with the last bowel movement this morning. Patient states that he did take 1 tablet of Percocet 5/325 this morning. He is not on any blood thinners. He has a surgical history of a cholecystectomy as well as of the abdomen. Denies any headache, fever, neck pain, URI, sore throat , chest pain, palpitations, syncope, cough, shortness of breath, wheeze, dyspnea , vomiting/diarrhea, urinary retention, dysuria, hematuria, back pain, loss of control of bowel or bladder, numbness/tingling, saddle anesthesia, muscle paralysis/weakness, or rash. - Related Data Allergies/Adverse Reactions: Iodinated Contrast- Oral and IV Dye [IV Dye, Iodine Containing] Allergy ( Verified 06/11/18 17:56) Past Medical History - Social History Smoking Status: Unknown if Ever Smoked Family History: Reviewed & Not Pertinent - Past Medical History Cardiac Medical History: Reports: Hx Coronary Artery Disease - Stent in the 90s , Hx Heart Attack, Hx Hypertension Pulmonary Medical History: Reports: Hx Asthma, Hx COPD Denies: Hx Tuberculosis Endocrine Medical History: Denies: Hx Diabetes Mellitus Type 1, Hx Diabetes Mellitus Type 2 Renal/ Medical History: Denies: Hx Peritoneal Dialysis GI Medical History: Reports: Hx Ulcer Musculoskeletal Medical History: Reports Hx Arthritis Psychiatric Medical History: Reports: Hx Anxiety Denies: Hx Depression Past Surgical History: Reports: Hx Abdominal Surgery, Hx Cardiac Catheterization - 2 cardiac catheters, angioplasty, patient denies stents, Hx Cholecystectomy, Hx Coronary Stent, Hx Orthopedic Surgery - ACF, lumbar fusion - Immunizations Immunizations up to date: Yes Hx Diphtheria, Pertussis, Tetanus Vaccination: Yes Hx Pneumococcal Vaccination: 11/14/14 Review of Systems - Review of Systems -: Yes All other systems reviewed and negative Physical Exam - Vital signs Vitals: Temp Pulse Resp BP Pulse Ox 97.9 F 91 18 107/65 100 07/07/18 15:34 07/07/18 15:34 07/07/18 15:34 07/07/18 15:34 07/07/18 15:34 - Notes Notes: PHYSICAL EXAMINATION: GENERAL: Well-appearing, well-nourished and in no acute distress. HEAD: Atraumatic, normocephalic. EYES: Pupils equal round and reactive to light, extraocular movements intact, sclera anicteric, conjunctiva are normal. ENT: EAC clear b/l. TM's intact b/l without erythema, fluid, or perforation. Nares patent and without discharge. oropharynx clear without exudates. No tonsilar hypertrophy or erythema. Moist mucous membranes. No sinus tenderness. NECK: Normal range of motion, supple without lymphadenopathy LUNGS: Breath sounds clear to auscultation bilaterally and equal. No wheezes rales or rhonchi. HEART: Regular rate and rhythm without murmurs, rubs, gallops. ABDOMEN: Soft, nondistended abdomen. + mild guarding, no rebound. Normal bowel sounds present. No CVA tenderness bilaterally. + tenderness to the mid abd and rt abdomen to palpation. + surgical scars noted from laparoscopy, no signs of infection noted. Healing appropriately. Musculoskeletal: FROM to passive/active. Strength 5+/5. Extremities: No cyanosis, clubbing, or edema b/l. Peripheral pulses 2+. Capillary refill less than 3 seconds. NEUROLOGICAL: Cranial nerves grossly intact. Normal speech, normal gait. PSYCH: Normal mood, normal affect. SKIN: Warm, Dry, normal turgor, no rashes or lesions noted. Course - Re-evaluation Re-evalutation: 07/07/18 15:50 Reviewed initial case with Dr. Ramírez. We will obtain labs and CT with IV contrast. 07/07/18 18:35 there is a likely new pancreatic pseudocyst approx 3.5cm on CT. Reviewed with Dr. Ramírez. Recommends consult with his surgeon in [facility]. Called placed to [facility]. 07/07/18 19:01 I did speak with Dr. Schmid, his surgeon, she states that the CT findings are not new for them as they scanned him just prior to discharge. She states that we should give him fluids and give him a PO challenge thereafter. Dr. Schmid is aware of the lactic level. If he is doing well at that time, he can be discharged home with f/u next week in their office. If he is not doing well after fluids, then he can be [facility]. She said to call her back if needed for the transfer. 07/07/18 20:00 Patient is an afebrile, well-hydrated, 57-year-old male who presents to the ED with abdominal pain, most likely secondary to his recent surgical procedure. Vitals are acceptable without any significant tachycardia, tachypnea, or hypoxia. PE is otherwise unremarkable. Patient's abdominal tenderness has significantly improved with fluids and medications. CBC, CMP, lipase, urinalysis, coags were unremarkable for any acute pathology. Patient did have a lactic acid of 2.5 which was verbalized to his general surgeon. Patient is finishing his second liter of fluids. I did review that plan with the patient as above and patient states that I can "take him up for discharge." Patient states that he is feeling much better and believes that he will do well at home after the fluids and p.o. challenge. Low suspicion/risk for acute appendicitis , bowel obstruction, acute cholecystitis, perforated diverticulitis, incarcerated hernia, pancreatitis, perforated ulcer, peritonitis, sepsis, or other systemic emergent condition at this time. Patient is aware that his condition can change from initial presentation and he needs to monitor symptoms closely and seek medical attention if any acute changes. Discharge pending PO challenge: Conservative measures otherwise for symptoms. Recheck with PCM in 2-3 days. Follow-up with your general surgeon next week. Return to the ED with any worsening/concerning symptoms otherwise as reviewed in discharge. Patient is in agreement. 07/07/18 20:03 transfer of care to [facility] Mo NP - Vital Signs Vital signs: Temp Pulse Resp BP Pulse Ox 98.0 F 90 18 112/66 98 07/07/18 19:31 07/07/18 19:31 07/07/18 19:31 07/07/18 19:31 07/07/18 19:31 - Laboratory Result Diagrams: 07/07/18 15:58 07/07/18 15:58 Laboratory results interpreted by me: 07/07/18 07/07/18 07/07/18 15:33 15:58 15:58 RBC 3.81 L Hgb 11.3 L Hct 33.6 L RDW 16.7 H Plt Count 655 H Lymphocytes % 47.7 H Chloride 108 H Glucose 132 H Lactic Acid 2.5 H Albumin 3.0 L Urine Urobilinogen 07/07/18 17:04 RBC Hgb Hct RDW Plt Count Lymphocytes % Chloride Glucose Lactic Acid Albumin Urine Urobilinogen 2.0 H Discharge - Discharge Clinical Impression: Abdominal pain Qualifiers: Abdominal location: generalized Qualified Code(s): R10.84 - Generalized abdominal pain Condition: Stable Disposition: HOME, SELF-CARE Instructions: Abdominal Pain ([facility]) Additional Instructions: Maintain adequate fluid and food intake High-protein liquid diet Zofran as needed tylenol if needed Monitor for any worsening symptoms Make sure you are staying hydrated enough to urinate and have normal BM's Recheck with your PCM in 2-3 days Follow-up with your general surgeon next week Return to the ED with any worsening symptoms and/or development of fever, headache, chest pain, palpitations, syncope, shortness of breath, trouble breathing, abdominal pain, n/v/d, blood in stool/urine, weakness, or other worsening symptoms that are concerning to you. Prescriptions: Morphine Sulfate [Morphine Ir 15 Mg Tablet] 15 mg PO TID #15 tablet Referrals: TEDDY WILSON MD [NO LOCAL MD] - Follow up as needed
[2018-07-07] MEDS ORDERED: FAMOTIDINE INJ/PF 20 MG/2 ML SDV IV ONE (15:51)
[2018-07-07] MEDS ORDERED: METHYLPREDNISOLONE INJ 125 MG/2 ML SDV IV ONE (15:51)
[2018-07-07] MEDS ORDERED: DIPHENHYDRAMINE HCL 50 MG/ML VIAL IV ONE (15:51)
[2018-07-07 16:16] LABS: ABSOLUTE EOSINOPHILS # (AUTO) 0.1 10^3/uL (0.0-0.6); ABSOLUTE LYMPHOCYTES (AUTO) 4.2 10^3/uL (0.5-4.7); ABSOLUTE MONOCYTES (AUTO) 0.7 10^3/uL (0.1-1.4); ABSOLUTE NEUT (AUTO) 3.7 10^3/uL (1.7-8.2); BASOPHILS % (AUTO) 0.5 % (0-2); HEMATOCRIT 33.6 % (37.9-51.0); HEMOGLOBIN 11.3 g/dL (13.5-17.0); LYMPHOCYTES % (AUTO) 47.7 % (13-45); MEAN CORPUSCULAR HEMOGLOBIN 29.7 pg (27.0-33.4); MEAN CORPUSCULAR HGB CONC 33.5 g/dL (32.0-36.0); MEAN CORPUSCULAR VOLUME 88 fl (80-97); MONOCYTES % (AUTO) 7.9 % (3-13); PLATELET COUNT 655 10^3/uL (150-450); RED BLOOD COUNT 3.81 10^6/uL (4.35-5.55); RED CELL DISTRIBUTION WIDTH 16.7 % (11.5-14.0); SEGMENTED NEUTROPHILS % (AUTO) 42.9 % (42-78); TOTAL CELLS COUNTED % (AUTO) 100 %; WHITE BLOOD COUNT 8.7 10^3/uL (4.0-10.5)
[2018-07-07 16:24] LABS: INTERNATIONAL RATION (INR) 0.95; PROTHROMBIN TIME 13.2 SEC (11.4-15.4)
[2018-07-07 16:25] LABS: PARTIAL THROMBOPLASTIN TIME 30.8 SEC (23.5-35.8)
[2018-07-07 17:28] LABS: AMORPHOUS SEDIMENT,URINE TRACE /HPF; APPEARANCE,URINE CLOUDY; BILIRUBIN,URINE NEGATIVE (NEGATIVE); GLUCOSE, URINE NEGATIVE (NEGATIVE); KETONES,URINE NEGATIVE (NEGATIVE); LEUKOCYTE ESTERASE,URINE NEGATIVE (NEGATIVE); NITRITE,URINE NEGATIVE (NEGATIVE); PROTEIN,URINE NEGATIVE (NEGATIVE); URINE SPECIFIC GRAVITY 1.016
[2018-07-07 17:31] LABS: COLOR,URINE YELLOW
[2018-07-07 17:39] LABS: ALANINE AMINOTRANSFERASE 23 U/L (21-72); ALKALINE PHOSPHATASE 102 U/L (38-126); ANION GAP 12 (5-19); ASPARTATE AMINO TRANSFERASE 27 U/L (17-59); BILIRUBIN,DIRECT 0.4 mg/dL (0.0-0.4); BILIRUBIN,TOTAL 0.4 mg/dL (0.2-1.3); BLOOD UREA NITROGEN 13 mg/dL (7-20); CALCIUM 8.8 mg/dL (8.4-10.2); CARBON DIOXIDE 22 mmol/L (22-30); CHLORIDE 108 mmol/L (98-107); GLUCOSE 132 mg/dL (75-110); LIPASE 135.7 U/L (23-300); POTASSIUM 4.4 mmol/L (3.6-5.0); SODIUM 142.4 mmol/L (137-145); TOTAL PROTEIN 6.7 g/dL (6.3-8.2)
--- NOTE | 2018-07-07 18:23 | RADIOLOGY REPORT (SQ) ---
EXAM DESCRIPTION: CT ABD/PELVIS WITH IV ONLY COMPLETED DATE/TIME: 07/07/2018 6:01 pm REASON FOR STUDY: Abd pain, recent surgery to remove cyst from pancr COMPARISON: 06/11/2018 TECHNIQUE: CT scan of the abdomen and pelvis performed using helical scanning technique with dynamic intravenous contrast injection. No oral contrast. Images reviewed with lung, soft tissue, and bone windows. Reconstructed coronal and sagittal MPR images reviewed. Delayed images for evaluation of the urinary system also acquired. All images stored on PACS. All CT scanners at this facility use dose modulation, iterative reconstruction, and/or weight based d osing when appropriate to reduce radiation dose to as low as reasonably achievable (ALARA). [facility]: Dose Right [facility]: CareDose [facility]: Dose Right [facility]: Teradose 4D [facility]: Mass Mosaic CONTRAST TYPE AND DOSE: contrast/concentration: Isovue 350.00 mg/ml; Total Contrast Delivered: 92.0 ml; Total Saline Delivered: 50.0 ml RENAL FUNCTION: BUN 13 creatinine 0.55 RADIATION DOSE: CT Rad equipment meets quality standard of care and radiation dose reduction techniq ues were employed. CTDIvol: 8.4 - 12.2 mGy. DLP: 1161 mGy-cm.. LIMITATIONS: None. FINDINGS: LOWER CHEST: No significant findings. No nodules or infiltrates. LIVER: Normal size. No masses. No dilated ducts. SPLEEN: Normal size. No focal lesions. PANCREAS: There are residual inflammatory changes associated with the head of the pancreas. There is some residual fluid on the right. This is significantly improved. Stippled pancreatic calcificatio ns are present. GALLBLADDER: Surgically absent. ADRENAL GLANDS: No significant masses or asymmetry. RIGHT KIDNEY AND URETER: No solid masses. No significant calcifications. No hydronephrosis or hyd roureter. LEFT KIDNEY AND URETER: No solid masses. No significant calcifications. No hydronephrosis or hydr oureter. AORTA AND VESSELS: There is a 35 mm aneurysm of the infrarenal abdominal aorta. RETROPERITONEUM: No retroperitoneal adenopathy, hemorrhage or masses. BOWEL AND PERITONEAL CAVITY: There is a 3.5 cm fluid collection just medial to the stomach on image 2 8. This was not present previously. No bowel mass or obstruction. APPENDIX: Normal. PELVIS: No mass. No free fluid. Normal bladder. ABDOMINAL WALL: No masses. No hernias. BONES: Hardware is present from L4-S1. It appears that the posterior rods have been removed. OTHER: No other significant finding. IMPRESSION: 1. There is residual fluid with inflammatory change in the right upper quadrant, but th ere is significant improvement in the appearance compared to the earlier study. 2. There is a new 3.5 cm fluid collection just to the left of the midline. 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 3. 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 TECHNICAL DOCUMENTATION: JOB ID: [id number] Quality ID # [id number]: Final reports with documentation of one or more dose reduction techniques (e.g., Au tomated exposure control, adjustment of the mA and/or kV according to patient size, use of iterative reconstruction technique) 2010 [employer]- All Rights Reserved Reading location - IP/workstation name: [email or web address]
[2018-07-07] MEDS ORDERED: NORMAL SALINE 1000 ML 1,000 ML IV PRN (18:58)
[2018-07-07 20:40] VITALS: BP 110/65
== END 2018-07-07 20:37 | disposition home or self-care (01) ==
LOC: ER 15:29
DX: R10.84 Generalized abdominal pain (principal); I10 Essential (primary) hypertension; I25.10 Atherosclerotic heart disease of native coronary artery without angina pectoris; I25.2 Old myocardial infarction; J44.9 Chronic obstructive pulmonary disease, unspecified; Z98.890 Other specified postprocedural states; Z90.49 Acquired absence of other specified parts of digestive tract; Z91.041 Radiographic dye allergy status
CPT/HCPCS: 96376; 99285; 96361; 96374; 96375; 36415; 87040; 87086; 83690; 85025; 85610; 85730; 80053; 81001; 83605; 74177; J1200; J2930; J1170; J2405; J7030; S0028

== ENCOUNTER 2018-07-11 16:40 | Emergency (ER) | payer MEDICAID, MEDICARE ==
[2018-07-11] MEDS ORDERED: ONDANSETRON 4 MG TAB.RAPDIS PO ONE (17:49)
[2018-07-11] MEDS ORDERED: FENTANYL CITRATE INJ/PF 100 MCG/2 ML AMPUL IV ONE (17:50)
[2018-07-11] MEDS ORDERED: DIPHENHYDRAMINE HCL 50 MG/ML VIAL IV ONE (17:53)
--- NOTE | 2018-07-11 17:57 | ER Document Report ---
ED Medical Screen (RME) - General Chief Complaint: Post Surgical Pain Stated Complaint: ABDOMINAL PAIN Time Seen by Provider: 07/11/18 17:37 Notes: RAPID MEDICAL EVALUATION DISCLOSURE I have seen this patient as part of a Rapid Medical Evaluation and, if applicable, placed any initially appropriate orders. The patient will be seen and fully evaluated, including a full history and physical exam, by a provider ( in Main ED or Fast Track) when a room becomes available. 57-year-old male PMH pancreatic cysts and abscesses recently underwent hospitalization at [facility] this month now here with complaints of worsening abdominal pain nausea and vomiting that started the day after discharge. He states that he was seen here in the ED for the same thing several days ago and was told everything "checked out okay" but states that his home pain medication of Dilaudid is not helping. EXAM Mild to moderate tachycardia Previous surgical incisions seen CDI Mild to moderate diffuse abdominal tenderness, upper greater than lower NOTE Patient states he has no significant allergy to IV contrast dye States when he recently received IV contrast CT scan, he received Benadryl immediately before the scan without adverse reactions TRAVEL OUTSIDE OF THE [place] IN LAST 30 DAYS: No - Related Data Allergies/Adverse Reactions: Iodinated Contrast- Oral and IV Dye [IV Dye, Iodine Containing] Allergy ( Verified 07/11/18 17:35) Past Medical History - Social History Chew tobacco use (# tins/day): No Frequency of alcohol use: None Drug Abuse: None - Past Medical History Cardiac Medical History: Reports: Hx Coronary Artery Disease - Stent in the 90s , Hx Heart Attack, Hx Hypertension Pulmonary Medical History: Reports: Hx Asthma, Hx COPD Denies: Hx Tuberculosis Endocrine Medical History: Denies: Hx Diabetes Mellitus Type 1, Hx Diabetes Mellitus Type 2 Renal/ Medical History: Denies: Hx Peritoneal Dialysis GI Medical History: Reports: Hx Ulcer Musculoskeltal Medical History: Reports Hx Arthritis Psychiatric Medical History: Reports: Hx Anxiety Denies: Hx Depression Past Surgical History: Reports: Hx Abdominal Surgery, Hx Cardiac Catheterization - 2 cardiac catheters, angioplasty, patient denies stents, Hx Cholecystectomy, Hx Coronary Stent, Hx Orthopedic Surgery - ACF, lumbar fusion, Hx Pancreatic Surgery - Immunizations Immunizations up to date: Yes Hx Diphtheria, Pertussis, Tetanus Vaccination: Yes Physical Exam - Vital signs Vitals: Temp Pulse Resp BP Pulse Ox 97.9 F 116 H 16 120/89 H 95 07/11/18 16:49 07/11/18 16:49 07/11/18 16:49 07/11/18 16:49 07/11/18 16:49 Course - Vital Signs Vital signs: Temp Pulse Resp BP Pulse Ox 97.9 F 116 H 16 120/89 H 95 07/11/18 16:49 07/11/18 16:49 07/11/18 16:49 07/11/18 16:49 07/11/18 16:49
[2018-07-11 19:06] LABS: ABSOLUTE BASOPHILS # (AUTO) 0.2 10^3/uL (0.0-0.2); ABSOLUTE EOSINOPHILS # (AUTO) 0.1 10^3/uL (0.0-0.6); ABSOLUTE LYMPHOCYTES (AUTO) 5.8 10^3/uL (0.5-4.7); ABSOLUTE MONOCYTES (AUTO) 0.9 10^3/uL (0.1-1.4); ABSOLUTE NEUT (AUTO) 6.4 10^3/uL (1.7-8.2); BASOPHILS % (AUTO) 1.2 % (0-2); EOSINOPHILS % (AUTO) 0.8 % (0-6); HEMATOCRIT 38.8 % (37.9-51.0); HEMOGLOBIN 12.8 g/dL (13.5-17.0); LYMPHOCYTES % (AUTO) 43.3 % (13-45); MEAN CORPUSCULAR HEMOGLOBIN 29.1 pg (27.0-33.4); MEAN CORPUSCULAR VOLUME 88 fl (80-97); MONOCYTES % (AUTO) 6.9 % (3-13); PLATELET COUNT 613 10^3/uL (150-450); RED CELL DISTRIBUTION WIDTH 16.5 % (11.5-14.0); SEGMENTED NEUTROPHILS % (AUTO) 47.8 % (42-78); TOTAL CELLS COUNTED % (AUTO) 100 %; WHITE BLOOD COUNT 13.4 10^3/uL (4.0-10.5)
[2018-07-11 19:23] LABS: ALANINE AMINOTRANSFERASE 28 U/L (21-72); ALBUMIN 3.9 g/dL (3.5-5.0); ALKALINE PHOSPHATASE 150 U/L (38-126); ANION GAP 13 (5-19); ASPARTATE AMINO TRANSFERASE 25 U/L (17-59); BILIRUBIN,DIRECT 0.5 mg/dL (0.0-0.4); BILIRUBIN,TOTAL 0.7 mg/dL (0.2-1.3); BLOOD UREA NITROGEN 13 mg/dL (7-20); CALCIUM 9.9 mg/dL (8.4-10.2); CARBON DIOXIDE 24 mmol/L (22-30); CHLORIDE 104 mmol/L (98-107); GLUCOSE 99 mg/dL (75-110); LIPASE 120.4 U/L (23-300); POTASSIUM 4.6 mmol/L (3.6-5.0); SODIUM 141.2 mmol/L (137-145); TOTAL PROTEIN 7.9 g/dL (6.3-8.2)
[2018-07-11] MEDS ORDERED: NORMAL SALINE 1000 ML 1,000 ML IV ONE (19:51)
[2018-07-11] MEDS ORDERED: HYDROMORPHONE HCL INJ/PF 2 MG/ML AMPULE IV ONE (19:51)
--- NOTE | 2018-07-11 19:53 | ER Document Report ---
ED GI/ - General Chief Complaint: Post Surgical Pain Stated Complaint: ABDOMINAL PAIN Time Seen by Provider: 07/11/18 17:37 Notes: Patient is a 57-year-old male that comes to the emergency department for chief complaint of mid to right-sided abdominal pain, he is postop pancreatic cyst and abscess removal, released from [facility] on Tuesday (05 of July). He has a follow-up in 2 days. He states that this morning he suddenly started feeling sharp worsening pains, reports some nausea, denies vomiting, denies fever, denies passing out, chest pain, shortness of breath. He is on Dilaudid for pain at home. He has had a cholecystectomy, he also has CAD with stents. TRAVEL OUTSIDE OF THE [place] IN LAST 30 DAYS: No - Related Data Allergies/Adverse Reactions: Iodinated Contrast- Oral and IV Dye [IV Dye, Iodine Containing] Allergy ( Verified 07/11/18 17:35) Past Medical History - General Information source: Patient - Social History Smoking Status: Current Every Day Smoker Chew tobacco use (# tins/day): No Smoking Education Provided: Yes - <3 min Drug Abuse: None Lives with: Family Family History: Reviewed & Not Pertinent Patient has suicidal ideation: No Patient has homicidal ideation: No - Past Medical History Cardiac Medical History: Reports: Hx Coronary Artery Disease - Stent in the 90s , Hx Heart Attack, Hx Hypertension Pulmonary Medical History: Reports: Hx Asthma, Hx COPD Denies: Hx Tuberculosis Endocrine Medical History: Denies: Hx Diabetes Mellitus Type 1, Hx Diabetes Mellitus Type 2 Renal/ Medical History: Denies: Hx Peritoneal Dialysis GI Medical History: Reports: Hx Ulcer Musculoskeletal Medical History: Reports Hx Arthritis Psychiatric Medical History: Reports: Hx Anxiety Denies: Hx Depression Past Surgical History: Reports: Hx Abdominal Surgery, Hx Cardiac Catheterization - 2 cardiac catheters, angioplasty, patient denies stents, Hx Cholecystectomy, Hx Coronary Stent, Hx Orthopedic Surgery - ACF, lumbar fusion, Hx Pancreatic Surgery - Immunizations Immunizations up to date: Yes Hx Diphtheria, Pertussis, Tetanus Vaccination: Yes Hx Pneumococcal Vaccination: 11/14/14 Review of Systems - Review of Systems Constitutional: No symptoms reported EENT: No symptoms reported Cardiovascular: No symptoms reported Respiratory: No symptoms reported Gastrointestinal: See HPI Genitourinary: No symptoms reported Male Genitourinary: No symptoms reported Musculoskeletal: No symptoms reported Skin: No symptoms reported Hematologic/Lymphatic: No symptoms reported Neurological/Psychological: No symptoms reported Physical Exam - Vital signs Vitals: Temp Pulse Resp BP Pulse Ox 97.9 F 116 H 16 120/89 H 95 07/11/18 16:49 07/11/18 16:49 07/11/18 16:49 07/11/18 16:49 07/11/18 16:49 - Notes Notes: GENERAL: Alert, interacts well. No acute distress. HEAD: Normocephalic, atraumatic. EYES: Pupils equal, round, and reactive to light. Extraocular movements intact. ENT: Oral mucosa moist, tongue midline. [Nares patent, no nasal septal hematoma , TM's intact.] NECK: Full range of motion. Supple. Trachea midline. LUNGS: Slightly decreased bilaterally, no overt wheezing, rales, rhonchi, no distress. HEART: Tachycardic, regular rhythm, no murmur. ABDOMEN: Postsurgical scars in the mid to upper abdomen, small incisions, no erythema or severe tenderness over these areas, no rigidity, distention, or guarding. There is slightly increased tenderness in the mid to lower right abdomen. EXTREMITIES: Moves all 4 extremities spontaneously. No edema, normal radial and dorsalis pedis pulses bilaterally. No cyanosis. BACK: no cervical, thoracic, lumbar midline tenderness. No saddle anesthesia, normal distal neurovascular exam. NEUROLOGICAL: Alert and oriented x3. Normal speech. [cranial nerves II through XII grossly intact]. PSYCH: Normal affect, normal mood. SKIN: Warm, dry, normal turgor. No rashes or lesions noted. Course - Re-evaluation Re-evalutation: Patient seen here 4 days ago with similar presentation. Had pseudocyst at that time, his follow-up for that visit was scheduled for 2 days from now. Patient is mildly tachycardic, alert, does not appear to be in distress, wounds appear to have healed nicely without infection, no fever. He does have generalized abdominal tenderness which is worse in the mid to right lower abdomen but no severe tenderness, rigidity, or guarding. Mild leukocytosis at 13,000 without bandemia, hemoglobin unremarkable. Urine suggest dehydration. Given IV fluids. Patient is not on a blood thinner. Chemistry including lipase are unremarkable. CT with no acute findings, no abscess, perforation, or concerning new development. Discussed with patient. He remains well-appearing on reevaluation. Initially after discussion with patient I explained that I was contacting his surgeon to discuss the results with him, however patient is requesting to leave now instead of waiting, states that he has a follow-up in 2 days and he will return if he worsens in any way. Discharged with return precautions. Stable at time of discharge. - Vital Signs Vital signs: Temp Pulse Resp BP Pulse Ox 97.9 F 81 18 141/76 H 99 07/11/18 16:49 07/11/18 23:29 07/11/18 23:29 07/11/18 23:29 07/11/18 23:29 - Laboratory Result Diagrams: 07/11/18 18:51 07/11/18 18:51 Laboratory results interpreted by me: 07/11/18 07/11/18 07/11/18 18:51 18:51 18:51 WBC 13.4 H Hgb 12.8 L RDW 16.5 H Plt Count 613 H Absolute Lymphocytes 5.8 H Direct Bilirubin 0.5 H Alkaline Phosphatase 150 H Urine Protein 30 H Urine Urobilinogen 4.0 H Discharge - Discharge Clinical Impression: Post-op pain Abdominal pain Qualifiers: Abdominal location: generalized Qualified Code(s): R10.84 - Generalized abdominal pain Condition: Stable Disposition: HOME, SELF-CARE Additional Instructions: Improve your hydration, take your home medications, follow-up with your surgeon in 2 days as planned. Your CAT scan today did not show any concerning or worsening symptoms, take your report with you on your visit. Return if you worsen including vomiting, fever, or any other concerning or worsening symptoms.
[2018-07-11] MEDS ORDERED: DIPHENHYDRAMINE HCL 50 MG/ML VIAL ONE (20:55)
[2018-07-11 21:14] LABS: APPEARANCE,URINE SLIGHTLY-CLOUDY; BILIRUBIN,URINE NEGATIVE (NEGATIVE); COLOR,URINE AMBER; GLUCOSE, URINE NEGATIVE (NEGATIVE); KETONES,URINE NEGATIVE (NEGATIVE); LEUKOCYTE ESTERASE,URINE NEGATIVE (NEGATIVE); NITRITE,URINE NEGATIVE (NEGATIVE); PROTEIN,URINE 30 mg/dL (NEGATIVE); URINE SPECIFIC GRAVITY 1.025
[2018-07-11] MEDS ORDERED: FAMOTIDINE INJ/PF 20 MG/2 ML SDV IV ONE (21:26)
--- NOTE | 2018-07-11 21:44 | RADIOLOGY REPORT (SQ) ---
EXAM DESCRIPTION: CT ABD/PELVIS WITH IV ONLY COMPLETED DATE/TIME: 07/11/2018 9:09 pm REASON FOR STUDY: hx panc abscess; now abd pain n/v; eval COMPARISON: 07/07/2018 TECHNIQUE: CT scan of the abdomen and pelvis performed using helical scanning technique with dynamic intravenous contrast injection. No oral contrast. Images reviewed with lung, soft tissue, and bone windows. Reconstructed coronal and sagittal MPR images reviewed. Delayed images for evaluation of the urinary system also acquired. All images stored on PACS. All CT scanners at this facility use dose modulation, iterative reconstruction, and/or weight based d osing when appropriate to reduce radiation dose to as low as reasonably achievable (ALARA). [facility]: Dose Right [facility]: CareDose [facility]: Dose Right [facility]: Teradose 4D [facility]: Sosedi CONTRAST TYPE AND DOSE: contrast/concentration: Isovue 350.00 mg/ml; Total Contrast Delivered: 91.0 ml; Total Saline Delivered: 45.0 ml RENAL FUNCTION: BUN 13 creatinine 0.6 RADIATION DOSE: CT Rad equipment meets quality standard of care and radiation dose reduction techniq ues were employed. CTDIvol: 8.9 - 12.7 mGy. DLP: 1233 mGy-cm.. LIMITATIONS: None. FINDINGS: LOWER CHEST: No significant findings. No nodules or infiltrates. LIVER: Normal size. No masses. No dilated ducts. SPLEEN: Normal size. No focal lesions. PANCREAS: There are persistent inflammatory changes in right upper quadrant that appear to be associa checo with the head of the pancreas. Once again a small fluid collection is seen just to the left of t he midline on image 22. This is slightly smaller than on the earlier study. GALLBLADDER: Surgically absent. ADRENAL GLANDS: No significant masses or asymmetry. RIGHT KIDNEY AND URETER: No solid masses. No significant calcifications. No hydronephrosis or hyd roureter. LEFT KIDNEY AND URETER: No solid masses. No significant calcifications. No hydronephrosis or hydr oureter. AORTA AND VESSELS: Stable 35 mm aneurysm of the infrarenal abdominal aorta. RETROPERITONEUM: No retroperitoneal adenopathy, hemorrhage or masses. BOWEL AND PERITONEAL CAVITY: No masses or inflammatory changes. No free fluid or peritoneal masses. APPENDIX: Normal. PELVIS: No mass. No free fluid. Normal bladder. ABDOMINAL WALL: No masses. No hernias. BONES: Lower lumbar surgical changes. OTHER: No other significant finding. IMPRESSION: Stable inflammatory changes in the right upper quadrant. Small fluid collection just th e left of the midline is slightly smaller than on the earlier study. No new fluid collections are se en. Stable infrarenal aneurysm of the abdominal aorta. TECHNICAL DOCUMENTATION: JOB ID: [id number] Quality ID # [id number]: Final reports with documentation of one or more dose reduction techniques (e.g., Au tomated exposure control, adjustment of the mA and/or kV according to patient size, use of iterative reconstruction technique) 2010 [employer]- All Rights Reserved Reading location - IP/workstation name: [email or web address]
[2018-07-11] MEDS ORDERED: HYDROMORPHONE HCL INJ/PF 2 MG/ML AMPULE IM ONE (23:07)
[2018-07-11] MEDS ORDERED: HYDROCODONE/ACETAMINOPHEN 5-325 MG (6 TAB/ER DISP) PO PRN (23:07)
[2018-07-11 23:30] VITALS: BP 141/76
== END 2018-07-11 23:29 | disposition home or self-care (01) ==
LOC: ER 16:40
DX: G89.18 Other acute postprocedural pain (principal); R10.84 Generalized abdominal pain; R11.0 Nausea; R00.0 Tachycardia, unspecified; I25.10 Atherosclerotic heart disease of native coronary artery without angina pectoris; I10 Essential (primary) hypertension; J44.9 Chronic obstructive pulmonary disease, unspecified; F17.200 Nicotine dependence, unspecified, uncomplicated; Z95.5 Presence of coronary angioplasty implant and graft; Z90.49 Acquired absence of other specified parts of digestive tract; Z91.041 Radiographic dye allergy status
CPT/HCPCS: 96376; 99284; 96372; 96361; 96374; 96375; 36415; 87040; 83690; 85025; 80053; 81001; 74177; J1200; A9270 ×2; J3010; J1170; J7030; S0028; S0119

== ENCOUNTER 2018-08-23 03:15 | Emergency (ER) | payer MEDICARE ==
[2018-08-23] MEDS ORDERED: MORPHINE SULFATE 10 MG/ML INJ IV ONE ×2 (03:36→05:39)
[2018-08-23] MEDS ORDERED: ONDANSETRON HCL INJ/PF 4 MG/2 ML SDV IV ONE (03:36)
[2018-08-23 03:50] LABS: ABSOLUTE BASOPHILS # (AUTO) 0.1 10^3/uL (0.0-0.2); ABSOLUTE EOSINOPHILS # (AUTO) 0.2 10^3/uL (0.0-0.6); ABSOLUTE MONOCYTES (AUTO) 0.5 10^3/uL (0.1-1.4); ABSOLUTE NEUT (AUTO) 3.8 10^3/uL (1.7-8.2); BASOPHILS % (AUTO) 0.9 % (0-2); EOSINOPHILS % (AUTO) 2.1 % (0-6); HEMATOCRIT 41.4 % (37.9-51.0); HEMOGLOBIN 14.4 g/dL (13.5-17.0); MEAN CORPUSCULAR HEMOGLOBIN 30.5 pg (27.0-33.4); MEAN CORPUSCULAR HGB CONC 34.8 g/dL (32.0-36.0); MEAN CORPUSCULAR VOLUME 88 fl (80-97); MONOCYTES % (AUTO) 6.3 % (3-13); PLATELET COUNT 289 10^3/uL (150-450); RED BLOOD COUNT 4.73 10^6/uL (4.35-5.55); RED CELL DISTRIBUTION WIDTH 15.5 % (11.5-14.0); SEGMENTED NEUTROPHILS % (AUTO) 43.7 % (42-78); TOTAL CELLS COUNTED % (AUTO) 100 %; WHITE BLOOD COUNT 8.6 10^3/uL (4.0-10.5)
[2018-08-23 04:07] LABS: ALANINE AMINOTRANSFERASE 25 U/L (21-72); ALBUMIN 4.2 g/dL (3.5-5.0); ALKALINE PHOSPHATASE 74 U/L (38-126); ANION GAP 7 (5-19); ASPARTATE AMINO TRANSFERASE 29 U/L (17-59); BILIRUBIN,DIRECT 0.3 mg/dL (0.0-0.4); BILIRUBIN,TOTAL 0.5 mg/dL (0.2-1.3); BLOOD UREA NITROGEN 12 mg/dL (7-20); CALCIUM 9.8 mg/dL (8.4-10.2); CARBON DIOXIDE 26 mmol/L (22-30); CHLORIDE 109 mmol/L (98-107); GLUCOSE 96 mg/dL (75-110); LIPASE 37.1 U/L (23-300); POTASSIUM 4.2 mmol/L (3.6-5.0); SODIUM 141.6 mmol/L (137-145); TOTAL PROTEIN 7.3 g/dL (6.3-8.2)
[2018-08-23 04:26] LABS: INTERNATIONAL RATION (INR) 0.83; PROTHROMBIN TIME 11.8 SEC (11.4-15.4)
[2018-08-23 04:27] LABS: PARTIAL THROMBOPLASTIN TIME 32.2 SEC (23.5-35.8)
[2018-08-23] MEDS ORDERED: METHYLPREDNISOLONE INJ 125 MG/2 ML SDV IV ONE (04:29)
[2018-08-23] MEDS ORDERED: FAMOTIDINE INJ/PF 20 MG/2 ML SDV IV ONE (04:29)
[2018-08-23] MEDS ORDERED: DIPHENHYDRAMINE HCL 50 MG CAPSULE PO ONE (04:29)
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
[2018-08-23] MEDS ORDERED: NORMAL SALINE 1000 ML 1,000 ML IV ONE (06:02)
[2018-08-23] MEDS ORDERED: METOCLOPRAMIDE HCL INJ/PF 10 MG/2 ML SDV IV ONE (06:02)
--- NOTE | 2018-08-23 06:20 | RADIOLOGY REPORT (SQ) ---
EXAM DESCRIPTION: CT ABDOMEN PELVIS WITH IV CONTRAST COMPLETED DATE/TME: 08/23/2018 03:36 CLINICAL HISTORY: 57 years Male, abd pain Comparison: 8.28.18 Technique: IV contrast. Coronal and sagittal reformat. This exam was performed according to our departmental dose-optimization program, which includes automated exposure control, adjustment of the mA and/or kV according to patient size and/or use of iterative reconstruction technique. [facility]: Dose Right [facility]: CareDose [facility]: Dose Right [facility]: Teradose 4D [facility]: Vasopharm LIMITATIONS: None Findings 4.3 cm cystic fluid mass at the anterosuperior aspect of the gallbladder fossa not significant changed. Mild inflamed fat associated with the pancreatic head. Small biliary ductal gas. 1.1 cm common duct dilation. Dilated loops of small bowel including a 2.9 cm diameter loop of the left paracentral abdomen with air-fluid levels. Infrarenal abdominal aortic aneurysm with cross-sectional diameter of 3.1 x 3.7 cm. Follow-up recommended every 12 months. L3-S1 posterior hardware fusion, L5-S1 intervertebral disc replacement, mild disc desiccation. Cholecystectomy clips.: Normal appendix. Inferior thorax, liver, gallbladder, pancreas, spleen, adrenals, renal system, gastrointestinal tract, pelvic organs, lymphatics, vasculature, and musculoskeleton appear otherwise unremarkable. IMPRESSION: No significant change
[2018-08-23 06:23] LABS: APPEARANCE,URINE CLEAR; BILIRUBIN,URINE NEGATIVE (NEGATIVE); COLOR,URINE YELLOW; GLUCOSE, URINE NEGATIVE (NEGATIVE); KETONES,URINE NEGATIVE (NEGATIVE); LEUKOCYTE ESTERASE,URINE NEGATIVE (NEGATIVE); NITRITE,URINE NEGATIVE (NEGATIVE); PROTEIN,URINE NEGATIVE (NEGATIVE); UROBILINOGEN,URINE NEGATIVE mg/dL (<2.0)
[2018-08-23 07:11] VITALS: BP 166/98
== END 2018-08-23 07:25 | disposition home or self-care (01) ==
LOC: ER 03:15
DX: K56.7 Ileus, unspecified (principal); R10.10 Upper abdominal pain, unspecified; Z90.49 Acquired absence of other specified parts of digestive tract
CPT/HCPCS: 96376; 99285; 96361; 96374; 96375; 36415; 83690; 85025; 85610; 85730; 80053; 81001; 74177; A9270; J2930; J2765; J2270; J2405; J7030; S0028

== ENCOUNTER 2018-10-26 20:54 | Emergency (ER) | payer MEDICARE ==
[2018-10-26] MEDS ORDERED: NORMAL SALINE 1000 ML 1,000 ML IV ONE (21:58)
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
[2018-10-26 22:42] LABS: APPEARANCE,URINE CLEAR; BILIRUBIN,URINE NEGATIVE (NEGATIVE); COLOR,URINE YELLOW; GLUCOSE, URINE NEGATIVE (NEGATIVE); KETONES,URINE NEGATIVE (NEGATIVE); LEUKOCYTE ESTERASE,URINE NEGATIVE (NEGATIVE); NITRITE,URINE NEGATIVE (NEGATIVE); PROTEIN,URINE NEGATIVE (NEGATIVE); URINE SPECIFIC GRAVITY 1.026; UROBILINOGEN,URINE NEGATIVE mg/dL (<2.0)
[2018-10-26 23:11] LABS: HEMATOCRIT 42.1 % (37.9-51.0); HEMOGLOBIN 13.9 g/dL (13.5-17.0); MEAN CORPUSCULAR HEMOGLOBIN 29.7 pg (27.0-33.4); MEAN CORPUSCULAR VOLUME 90 fl (80-97); PLATELET COUNT 199 10^3/uL (150-450); RED BLOOD COUNT 4.66 10^6/uL (4.35-5.55)
[2018-10-26] MEDS ORDERED: OXYCODONE-ACETAMINOPHEN 5-325 MG TABLET PO ONE (23:14)
[2018-10-26] MEDS ORDERED: METOCLOPRAMIDE HCL INJ/PF 10 MG/2 ML SDV IV ONE (23:14)
[2018-10-26 23:35] LABS: ALANINE AMINOTRANSFERASE 20 U/L (21-72); ALBUMIN 4.4 g/dL (3.5-5.0); ALKALINE PHOSPHATASE 88 U/L (38-126); ANION GAP 14 (5-19); ASPARTATE AMINO TRANSFERASE 28 U/L (17-59); BILIRUBIN,DIRECT 0.2 mg/dL (0.0-0.4); BILIRUBIN,TOTAL 0.6 mg/dL (0.2-1.3); BLOOD UREA NITROGEN 16 mg/dL (7-20); CARBON DIOXIDE 21 mmol/L (22-30); CHLORIDE 105 mmol/L (98-107); GLUCOSE 106 mg/dL (75-110); LIPASE 30.4 U/L (23-300); POTASSIUM 4.1 mmol/L (3.6-5.0); SODIUM 140.1 mmol/L (137-145); TOTAL PROTEIN 7.3 g/dL (6.3-8.2)
[2018-10-26 23:37] LABS: ABSOLUTE LYMPHOCYTES# (MANUAL) 3.4 10^3/uL (0.5-4.7); ABSOLUTE MONOCYTES # (MANUAL) 0.6 10^3/uL (0.1-1.4); BASOPHILS % (MANUAL) 0 % (0-2); EOSINOPHILS % (MANUAL) 0 % (0-6); LYMPHOCYTES % (MANUAL) 39 % (13-45); MONOCYTES % (MANUAL) 7 % (3-13); SEGMENTED NEUTROPHILS % (MAN) 50 % (42-78); TOTAL CELLS COUNTED 100
[2018-10-26 23:38] LABS: PLATELET COMMENT ADEQUATE; RBC MORPHOLOGY COMMENT NORMO-CYTIC/CHROMIC
[2018-10-27] MEDS ORDERED: HYDROMORPHONE HCL INJ/PF 2 MG/ML AMPULE IV ONE
[2018-10-27] MEDS ORDERED: DIPHENHYDRAMINE HCL 50 MG/ML VIAL IV ONE (00:24)
--- NOTE | 2018-10-27 01:28 | RADIOLOGY REPORT (SQ) ---
EXAM DESCRIPTION: CT ABDOMEN PELVIS WITH IV CONTRAST COMPLETED DATE/TME: 10/27/2018 00:00 CLINICAL HISTORY: 57 years, Male, history of pancreatic cyst This exam was performed according to our departmental dose-optimization program which includes automated exposure control, adjustment of the mA and/or kVp according to patient size and/or use of iterative reconstruction technique where applicable. Compared to CT abdomen pelvis dated 08/23/2018. FINDINGS: Visualized lung bases are within normal limits. Liver, spleen, adrenal glands and kidneys are within normal limits. No hydronephrosis. Mild central biliary dilatation is noted, status post cholecystectomy. Pancreas demonstrates diffuse tiny calcifications consistent with sequela of prior granulomatous disease. This is similar to the prior study. No dilated loops of bowel to suggest obstruction. Mild amount of stool in the colon. The appendix is normal bladder is within normal limits. No abdominal or pelvic lymphadenopathy. Abdominal aorta demonstrates moderate atherosclerotic changes and an infrarenal aneurysm measuring 3.9 x 3.4 cm. No abdominal or pelvic lymphadenopathy. Bladder is within normal limits. The prostate is not enlarged. IMPRESSION: No acute disease. Mild 3.9 cm infrarenal abdominal aortic aneurysm. This is stable from the prior study. This needs annual imaging follow-up.
[2018-10-27] MEDS ORDERED: ONDANSETRON ODT 4 MG TAB (6 TAB/ER DISP) PO PRN (02:17)
--- NOTE | 2018-10-27 02:17 | ER Document Report ---
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 He is transferred to [place] where he had a drain placed. After that he was discharged and said he was readmitted to [facility] for a prolonged period time because of recurrent vomiting and abdominal pain. He was eventually discharged home. He says that for the last 10 days has had worsening pain and some vomiting at home. He says he feels like his pancreatitis is back again. He says that he went to his doctor yesterday and had blood work performed and was called yesterday and told him they had a really high white blood cell count that he must come to the ER. Said he went away little bit longer but he continued to have the pain therefore came to the ER today. Denies any fevers. No difficulty breathing. No chest pain. No other complaints at this time. TRAVEL OUTSIDE OF THE [place] IN LAST 30 DAYS: No - Related Data Allergies/Adverse Reactions: Iodinated Contrast- Oral and IV Dye [IV Dye, Iodine Containing] Allergy ( Verified 07/11/18 17:35) Past Medical History - Social History Smoking Status: Never Smoker Chew tobacco use (# tins/day): No Frequency of alcohol use: None Drug Abuse: None Family History: Reviewed & Not Pertinent Patient has suicidal ideation: No Patient has homicidal ideation: No - Past Medical History Cardiac Medical History: Reports: Hx Coronary Artery Disease - Stent in the 90s , Hx Heart Attack, Hx Hypertension Pulmonary Medical History: Reports: Hx Asthma, Hx COPD Denies: Hx Tuberculosis Endocrine Medical History: Denies: Hx Diabetes Mellitus Type 1, Hx Diabetes Mellitus Type 2 Renal/ Medical History: Denies: Hx Peritoneal Dialysis GI Medical History: Reports: Hx Ulcer Musculoskeletal Medical History: Reports Hx Arthritis Psychiatric Medical History: Reports: Hx Anxiety Denies: Hx Depression Past Surgical History: Reports: Hx Abdominal Surgery, Hx Cardiac Catheterization - 2 cardiac catheters, angioplasty, patient denies stents, Hx Cholecystectomy, Hx Coronary Stent, Hx Orthopedic Surgery - ACF, lumbar fusion, Hx Pancreatic Surgery - Immunizations Immunizations up to date: Yes Hx Diphtheria, Pertussis, Tetanus Vaccination: Yes Hx Pneumococcal Vaccination: 11/14/14 Review of Systems - Review of Systems Notes: My Normal Review Basic REVIEW OF SYSTEMS: CONSTITUTIONAL : Denies fever, chills, or sweats. Denies recent illness. RESPIRATORY: Denies cough, cold, or chest congestion. Denies shortness of breath, difficulty breathing, or wheezing. GASTROINTESTINAL: Abdominal pain it is centrally over the upper abdomen and left upper side of the abdomen. Some vomiting. GENITOURINARY: Denies difficulty urinating, painful urination, burning, frequency, or blood in urine. MUSCULOSKELETAL: Denies neck or back pain or joint pain or swelling. SKIN: Denies rash or skin lesions. NEUROLOGICAL: Denies altered mental status or loss of consciousness. ALL OTHER SYSTEMS REVIEWED AND NEGATIVE. Physical Exam - Vital signs Vitals: Temp Pulse Resp BP Pulse Ox 97.4 F 92 20 132/79 H 96 10/26/18 21:06 10/26/18 21:06 10/26/18 21:06 10/26/18 21:06 10/26/18 21:06 - Notes Notes: General Appearance: Well nourished, alert, cooperative, no acute distress, no obvious discomfort. Vitals: reviewed, See vital signs table. Head: no swelling or tenderness to the head Eyes: PERRL, EOMI, Conjuctiva clear Mouth: No decreasd moisture Lungs: No wheezing, No rales, No rhonci, No accessory muscle use, good air exchange bilaterally. Heart: Normal rate, Regular rythm, No murmur, no rub Abdomen: Normal BS, soft, No rigidity, patient has well-healed surgical scars from his previous surgery. Abdomen is soft. Patient starts to say he has pain before even touch his abdomen with my hand. When I went to touch his abdomen he says is tender all over however the abdomen is soft when I push on it. There is no peritoneal signs. Pain is worse over the upper portions of the abdomen mainly in the epigastric and left upper quadrant. Extremities: good pulses in all extremities, no swelling or tenderness in the extremities, no edema. Skin: warm, dry, appropriate color, no rash Neuro: speech clear, oriented x 3, normal affect, responds appropriately to questions. Course - Re-evaluation Re-evalutation: 10/27/18 06:06 Patient's laboratory evaluation is completely unremarkable and normal which is surprising being that he said he was called by his doctor yesterday and told he had to go to the ER immediately because he had a very high white blood cell count. White blood cell count here is completely normal. His lipase and chemistry panel is completely normal. I start to review his previous records and the patient's previous records show multiple workups here which have been mostly negative with CT scans which do not show any acute changes. I did not want to repeat CT scan however when I reevaluated the patient explained to him the findings he was adamant that his pancreas is inflamed. Being that his consistent history and him adamant that the symptoms are like his previous cardiac information I did obtain a CT scan which again shows no acute changes. There is a negative CT scan and labs are fairly safe to be discharged home. His vital signs are normal. He looks well. Most the time I go into the room he is sleeping and I have to wake him up to check his abdomen. He has had no further vomiting here. He apparently vomited once in the waiting room but has not vomited all since receiving medicine here. He looks well. I feel he is safe to be discharged home. I will prescribe him some nausea medicine. We will not prescribe any opiate pain medications as review of his note [place] controlled substance database reveals that he has had 12 different opiate prescriptions in the last 6 months. I encouraged him return to ER if he has intractable vomiting, fevers, or worsening pain. I asked he follows up with his doctor within 24 hours for reevaluation. Dictation of this chart was performed using voice recognition software; therefore, there may be some unintended grammatical errors. - Vital Signs Vital signs: Temp Pulse Resp BP Pulse Ox 98.0 F 75 18 135/71 H 97 10/27/18 03:04 10/27/18 03:04 10/27/18 03:04 10/27/18 03:04 10/27/18 03:04 - Laboratory Result Diagrams: 10/26/18 22:30 10/26/18 22:30 Laboratory results interpreted by me: 10/26/18 10/26/18 10/26/18 22:11 22:30 22:30 RDW 16.0 H Carbon Dioxide 21 L ALT 20 L Urine Blood MODERATE H Discharge - Discharge Clinical Impression: Abdominal pain Qualifiers: Abdominal location: unspecified location Qualified Code(s): R10.9 - Unspecified abdominal pain Condition: Good Disposition: HOME, SELF-CARE Additional Instructions: Please follow up with your doctor later today for reevaluation. Please return to the ER immediately if you have worsening pain., intractable vomiting, fevers , or have concerns that you are worsening. Prescriptions: Ondansetron [Zofran Odt 4 mg Tablet] 1 tab PO Q4H PRN #15 tab.rapdis PRN Reason: For Nausea/Vomiting Referrals: MONI LEVI MD [Primary Care Provider] - 10/27/18
[2018-10-27 04:31] VITALS: BP 135/71
== END 2018-10-27 03:10 | disposition home or self-care (01) ==
LOC: ER 20:54
DX: R10.12 Left upper quadrant pain (principal); R10.13 Epigastric pain; R10.817 Generalized abdominal tenderness; R11.10 Vomiting, unspecified; I25.10 Atherosclerotic heart disease of native coronary artery without angina pectoris; I10 Essential (primary) hypertension; J44.9 Chronic obstructive pulmonary disease, unspecified; Z87.19 Personal history of other diseases of the digestive system; Z91.041 Radiographic dye allergy status; Z95.5 Presence of coronary angioplasty implant and graft; Z90.49 Acquired absence of other specified parts of digestive tract; Z98.890 Other specified postprocedural states
CPT/HCPCS: 99284; 96361; 96374; 96375; 36415; 83690; 85025; 80053; 81001; 74177; J1200; J2765; J1170; J7030

== ENCOUNTER 2020-05-09 01:24 | Emergency (ER) | payer MEDICARE ==
[2020-05-09] MEDS ORDERED: NORMAL SALINE 1000 ML 1,000 ML IV ONE (02:20)
[2020-05-09] MEDS ORDERED: ONDANSETRON HCL INJ/PF 4 MG/2 ML SDV IV ONE (02:21)
[2020-05-09] MEDS ORDERED: MORPHINE SULFATE 10 MG/ML INJ IV ONE ×2 (02:21→04:28)
--- NOTE | 2020-05-09 03:02 | ER Document Report ---
Entered by MAURICIO HAYS SCRIBE 05/09/20 0217 Acting as scribe for:MONI OVALLE IV, MD ED GI/ - General Chief Complaint: Abdominal Pain Stated Complaint: ABDOMINAL PAIN Time Seen by Provider: 05/09/20 02:04 Primary Care Provider: MONI LEVI MD [Primary Care Provider] - Follow up as needed Mode of Arrival: Medic Information source: Patient Notes: This 59 year old male patient with a history of chronic pancreatitis brought in by EMS presents to the ED today with complaints of generalized abdominal pain for the past x1 week. Patient reports associated nausea/vomiting for the past x3 days. He notes abdominal hernias that are "tender to the touch." Denies fever or chills. Review of the [place] controlled substance database reveals that the patient recently filled 120 tablets (30-day supply) of Oxycodone x6 days ago. TRAVEL OUTSIDE OF THE [place] IN LAST 30 DAYS: No - Related Data Allergies/Adverse Reactions: No Known Allergies Allergy (Unverified 03/01/19 13:47) Home Medications: Oxycodone 10mg, Prononix 40mg BID, Kloniidne 1mg, Phenergan Past Medical History - General Information source: Patient, [facility] Records - Social History Smoking Status: Current Every Day Smoker Cigarette use (# per day): Yes Chew tobacco use (# tins/day): No Smoking Education Provided: No Frequency of alcohol use: None Drug Abuse: None Family History: Reviewed & Not Pertinent Patient has suicidal ideation: No Patient has homicidal ideation: No - Past Medical History Cardiac Medical History: Reports: Hx Coronary Artery Disease - Stent in the 90s, Hx Heart Attack, Hx Hypertension Pulmonary Medical History: Reports: Hx Asthma, Hx COPD Renal/ Medical History: Reports: Hx Kidney Stones GI Medical History: Reports: Hx Pancreatitis, Hx Ulcer Musculoskeletal Medical History: Reports Hx Arthritis Psychiatric Medical History: Reports: Hx Anxiety, Hx Depression Past Surgical History: Reports: Hx Abdominal Surgery, Hx Cardiac Catheterization - 2 cardiac catheters, angioplasty, patient denies stents, Hx Cholecystectomy, Hx Coronary Stent, Hx Orthopedic Surgery - ACF, lumbar fusion, Hx Pancreatic Surgery - drainage of pancreatic pseudocyst - Immunizations Immunizations up to date: Yes Hx Diphtheria, Pertussis, Tetanus Vaccination: Yes Hx Pneumococcal Vaccination: 11/14/14 Review of Systems - Review of Systems Constitutional: See HPI. denies: Chills, Fever EENT: No symptoms reported Cardiovascular: No symptoms reported Respiratory: No symptoms reported Gastrointestinal: See HPI, Abdominal pain, Nausea, Vomiting Genitourinary: No symptoms reported Male Genitourinary: No symptoms reported Musculoskeletal: No symptoms reported Skin: No symptoms reported Hematologic/Lymphatic: No symptoms reported Neurological/Psychological: No symptoms reported -: Yes All other systems reviewed and negative Physical Exam - Vital signs Vitals: Temp Pulse Resp BP Pulse Ox 97.8 F 59 L 17 149/74 H 97 05/09/20 01:41 05/09/20 01:41 05/09/20 01:41 05/09/20 01:41 05/09/20 01:41 - General General appearance: Alert In distress: None - HEENT Head: Normocephalic, Atraumatic Eyes: Normal Pupils: PERRL - Respiratory Respiratory status: No respiratory distress Chest status: Nontender Breath sounds: Normal Chest palpation: Normal - Cardiovascular Rhythm: Regular Heart sounds: Normal auscultation Murmur: No Friction rub: No Gallop: None auscultated - Abdominal Inspection: Normal Distension: Distended Bowel sounds: Normal Tenderness: No: Tender - Not particularly tender upon palpation Organomegaly: No organomegaly - Back Back: Normal, Nontender - Extremities General upper extremity: Normal inspection General lower extremity: Normal inspection. No: Edema - Neurological Neuro grossly intact: Yes Orientation: AAOx4 [place] Coma Scale Eye Opening: Spontaneous [place] Coma Scale Verbal: Oriented [place] Coma Scale Motor: Obeys Commands [place] Coma Scale Total: 15 - Psychological Associated symptoms: Normal affect, Normal mood - Skin Skin Temperature: Warm Skin Moisture: Dry Skin Color: Normal Course - Re-evaluation Re-evalutation: 05/09/20 05:58 Results of the ED MSE discussed with patient. All questions were answered prior to discharge. Emergency signs and symptoms, reasons to return to the emergency department discussed with patient. - Vital Signs Vital signs: Temp Pulse Resp BP Pulse Ox 97.9 F 64 17 174/98 H 99 05/09/20 04:58 05/09/20 04:58 05/09/20 04:58 05/09/20 04:58 05/09/20 04:58 - Laboratory Result Diagrams: 05/09/20 03:00 05/09/20 03:00 Laboratory results interpreted by me: 05/09/20 03:00 Potassium 3.5 L Glucose 112 H Discharge - Discharge Clinical Impression: Abdominal pain Qualifiers: Abdominal location: epigastric Qualified Code(s): R10.13 - Epigastric pain Chronic pancreatitis Qualifiers: Pancreatitis type: other Qualified Code(s): K86.1 - Other chronic pancreatitis Condition: Stable Disposition: HOME, SELF-CARE Additional Instructions: Return to the Emergency Department without delay if any worse. Pancreatitis Pancreatitis is an inflammation of the pancreas, an organ at the back of your abdomen. The pancreas produces insulin and enzymes that digest your food. Pancreatitis can be caused by gallstones in the bile duct, by alcohol or viruses, or by excess fat or calcium in the blood stream. Occasionally, pancreatitis occurs when a stomach ulcer silver through into the pancreas. We try to find the cause of pancreatitis, but some tests can't be done until the pancreas heals. The usual symptoms of pancreatitis are pain in the pit of the stomach that goes straight through to the back, vomiting, and low-grade fever. Severe cases require hospital admission, but many patients with mild pancreatitis do well at home. You will probably need medicine for pain and for vomiting. Sometimes we prescribe medicine to decrease stomach acid secretion and to decrease flow of pancreatic juices. Start with a diet of clear liquids (soda pop, juices). When the pain is decreasing, you can add some simple starches (potato, toast, applesauce). Avoid proteins and fats until you are completely painfree. When you're better, your doctor may suggest treatment to prevent future pancreatitis (such as gallbladder removal). Avoid alcohol forever. Get immediate treatment for any future episodes. Contact your doctor at once or return here if you have increasing pain, shortness of breath, general swelling, increasing size of the abdomen, continued vomiting, muscle spasms, or other new symptoms. HOME CARE INSTRUCTIONS & INFORMATION: Thank you for choosing us for your medical needs. We hope you're satisfied with the care you received. After you leave, you must properly care for your problem and, at the same time, observe its progress. Any condition can change. Some illnesses can change rapidly over hours or days. If your condition worsens, return to the Emergency Department or see your physician promptly. ABOUT YOUR X-RAYS AND EKG'S: If you had an EKG or X-rays taken, they have been read by the Emergency Physician. The X-rays and EKG's will also be read by a Radiologist or Business Applications Manager within 24 hours. If discrepancies are noted, you will be notified by telephone. Please be certain the ED has a correct telephone number & address where you can be reached. Also, realize that some fractures or abnormalities do not show up on initial X-rays. If your symptoms continue, see your physician. ABOUT YOUR LABORATORY TEST: If you had laboratory tests, the results have been reviewed by the Emergency Physician. Some test results (for example cultures) may not be available for several days. You will be contacted if any test result shows you need additional treatment. Please be certain the ED has a correct telephone number and address where you can be reached. ABOUT YOUR MEDICATIONS: You will receive instructions on how to take your medicine on the prescription label you receive. Additional information may be provided by the Pharmacy. If you have questions afterwards, call the ED for clarification or further instructions. Some prescribed medications may cause drowsiness. Do not perform tasks such as driving a car or operating machinery without consulting your Pharmacist. If you feel you need a refill of pain medication, your condition will need re-evaluation. Please do not call for a refill of any medication. ABOUT YOUR SIGNATURE: Signature of this document acknowledges to followin. Understanding that you received emergency treatment and that you may be released before al medical problems are known or treated. Please be certain the ED has a correct phone number & address where you can be reached. 2. Acknowledgement that you will arrange for follow-up care as recommended. 3. Authorization for the Emergency Physician to provide information to your follow-up Physician in order to maximize your care. AT ANY TIME, IF YOUR SYMPTOMS CHANGE SIGNIFICANTLY OR WORSEN OR YOU DEVELOP NEW SYMPTOMS, RETURN TO THE EMERGENCY DEPARTMENT IMMEDIATELY FOR RE-EVALUATION. OUR GOAL IS TO PROVIDE EXCELLENT MEDICAL CARE! WE HOPE THAT WE HAVE MET YOUR EXPECTATIONS DURING YOUR EMERGENCY DEPARTMENT VISIT AND THAT YOU FEEL YOU HAVE RECEIVED EXCELLENT CARE! Prescriptions: Promethazine HCl [Phenergan 25 mg Tablet] 1 tab PO Q6H PRN #10 tablet PRN Reason: Referrals: MONI LEVI MD [Primary Care Provider] - Follow up as needed I personally performed the services described in the documentation, reviewed and edited the documentation which was dictated to the scribe in my presence, and it accurately records my words and actions.
[2020-05-09 03:15] LABS: ABSOLUTE EOSINOPHILS # (AUTO) 0.1 10^3/uL (0.0-0.6); ABSOLUTE LYMPHOCYTES (AUTO) 1.5 10^3/uL (0.5-4.7); ABSOLUTE MONOCYTES (AUTO) 0.5 10^3/uL (0.1-1.4); ABSOLUTE NEUT (AUTO) 2.9 10^3/uL (1.7-8.2); BASOPHILS % (AUTO) 0.6 % (0-2); EOSINOPHILS % (AUTO) 1.4 % (0-6); HEMOGLOBIN 14.1 g/dL (13.5-17.0); LYMPHOCYTES % (AUTO) 30.8 % (13-45); MEAN CORPUSCULAR HEMOGLOBIN 32.4 pg (27.0-33.4); MEAN CORPUSCULAR HGB CONC 35.3 g/dL (32.0-36.0); MEAN CORPUSCULAR VOLUME 92 fl (80-97); MONOCYTES % (AUTO) 9.5 % (3-13); PLATELET COUNT 261 10^3/uL (150-450); RED BLOOD COUNT 4.36 10^6/uL (4.35-5.55); RED CELL DISTRIBUTION WIDTH 13.5 % (11.5-14.0); SEGMENTED NEUTROPHILS % (AUTO) 57.7 % (42-78); TOTAL CELLS COUNTED % (AUTO) 100 %
[2020-05-09 03:30] LABS: ALBUMIN 3.8 g/dL (3.5-5.0); ALKALINE PHOSPHATASE 97 U/L (38-126); ANION GAP 8 (5-19); ASPARTATE AMINO TRANSFERASE 25 U/L (17-59); BILIRUBIN,TOTAL 0.5 mg/dL (0.2-1.3); BLOOD UREA NITROGEN 14 mg/dL (7-20); CALCIUM 9.2 mg/dL (8.4-10.2); CARBON DIOXIDE 26 mmol/L (22-30); CHLORIDE 107 mmol/L (98-107); GLUCOSE 112 mg/dL (75-110); POTASSIUM 3.5 mmol/L (3.6-5.0); TOTAL PROTEIN 6.6 g/dL (6.3-8.2)
[2020-05-09] MEDS ORDERED: PROMETHAZINE HCL INJ 25 MG/1 ML VIAL IV ONE (04:29)
--- NOTE | 2020-05-09 05:31 | RADIOLOGY REPORT (SQ) ---
EXAM: CT abdomen and pelvis with IV contrast CLINICAL DATA: 59-year-old male with epigastric pain TECHNICAL DATA: Axial CT imaging of the abdomen and pelvis was performed following the administration of intravenous contrast. No oral contrast was utilized for this examination. Sagittal and coronal reconstructed images were then performed. The CT study is performed according to ALARA (as low as reasonably achievable) or ALARA/IMAGE GENTLY, with automatic adjustment of mA and/or kV according to patient size. Performed on: 05/09/2020 at 4:45 AM. Comparison: 03/01/2019 FINDINGS: Lung bases: The lung bases are clear. Liver:The liver is normal in size and configuration. No focal hepatic abnormalities are identified. There is diffusely decreased attenuation of the liver commonly due to fatty infiltration. Spleen:The spleen is normal is size, configuration and attenuation. Gallbladder and bile duct: The gallbladder is surgically absent. There is mild intrahepatic and extrahepatic duct dilatation likely physiologic in nature following cholecystectomy. Findings are similar when compared to the prior study. Pancreas: The pancreas is grossly normal in size and configuration. There are punctate calcifications scattered throughout the pancreas most consistent with chronic pancreatitis. Adrenal Glands:The adrenal glands are normal in size and configuration. Kidneys:The kidneys are normal in size and configuration. There is no evidence of hydronephrosis. There is no evidence of nephrolithiasis. No definite solid or cystic renal mass lesions are identified. Stomach:The stomach is grossly normal. There is no definite hiatal hernia. Bowel:The bowel gas pattern is non specific and non obstructive. There is scattered colonic diverticulosis. Appendix: The appendix is normal. Free air:There is no evidence of free air. Free fluid: There is no evidence of free fluid. Vasculature: Again demonstrated is an infrarenal abdominal aortic aneurysm measuring approximately 4.0 x 3.6 cm in cross-sectional diameter (series 3, image 47). This is similar when compared to the prior study. This does not involve the iliac arteries. The iliac arteries are normal in caliber and contour and demonstrate atherosclerotic calcification peripherally. The inferior vena cava is grossly unremarkable. Lymphadenopathy: No pathologic lymphadenopathy is identified. Bladder: The bladder is incompletely distended on this examination. Reproductive: The prostate gland is grossly within normal limits. Bones: No acute osseous abnormalities are identified. There are remote postsurgical changes of the lumbar spine consistent with posterior decompression and fusion of L4-S1 utilizing pedicle screws. An intervertebral disc spacer is present at L5-S1. There is no evidence to suggest hardware failure. Soft tissues: Again demonstrated are small bilateral fat-containing ventral abdominal wall hernias as well as a small fat-containing ventral umbilical hernia. There is mild stable atrophy of the left paraspinal muscles along the sacrum. There is streak artifact related to the indwelling metallic hardware resulting in slight degradation of image quality in the region of the pelvis. IMPRESSION: 1. No evidence of acute intra-abdominal or intrapelvic pathology. 2. Decreased attenuation of the liver commonly due to fatty infiltration. 3. Remote cholecystectomy with stable mild intrahepatic and extrahepatic duct dilatation. 4. Chronic pancreatitis. 5. Stable infrarenal abdominal aortic aneurysm with a maximum dimension of 4.0 cm. Recommend follow-up imaging every 12 months and vascular consultation. 6. Relatively stable, small fat-containing ventral abdominal wall hernias. 7. Remote posterior decompression and fusion of L4-S1 without definite hardware failure.
[2020-05-09 07:32] VITALS: BP 219/110
== END 2020-05-09 07:32 | disposition home or self-care (01) ==
LOC: ER 01:24
DX: K86.1 Other chronic pancreatitis (principal); R10.13 Epigastric pain; R10.84 Generalized abdominal pain; R11.2 Nausea with vomiting, unspecified; F17.210 Nicotine dependence, cigarettes, uncomplicated; I10 Essential (primary) hypertension; J44.9 Chronic obstructive pulmonary disease, unspecified; I25.2 Old myocardial infarction
CPT/HCPCS: 96376; 99284; 96361; 96374; 96375; 36415; 83690; 85025; 80053; 74177; J2270; J2550; J2405; J7030

== ENCOUNTER 2020-06-06 03:39 | Emergency (ER) | payer MEDICARE ==
[2020-06-06] MEDS ORDERED: FENTANYL CITRATE INJ/PF 100 MCG/2 ML AMPUL IV ONE (05:29)
[2020-06-06] MEDS ORDERED: ONDANSETRON HCL INJ/PF 4 MG/2 ML SDV IV ONE ×2 (05:29→07:56)
[2020-06-06] MEDS ORDERED: NORMAL SALINE 1000 ML 1,000 ML IV ONE (05:29)
--- NOTE | 2020-06-06 05:31 | ER Document Report ---
ED Medical Screen (RME) - General Chief Complaint: Abdominal Pain Stated Complaint: ABDOMINAL PAIN Time Seen by Provider: 06/06/20 05:22 Primary Care Provider: MONI LEVI MD [Primary Care Provider] - Follow up as needed Notes: Patient is a 59-year-old male that comes emergency department for chief complaint of vomiting and abdominal pain for the past 3 days. Pain is in the upper abdomen. He states that he has a history of chronic pancreatitis, he has had a cholecystectomy, he states he had half his pancreas removed secondary to complication with pseudocysts. He denies ever drinking alcohol except for in h is 20s. He states he was recently hospitalized at [facility] and discharged last Tuesday. TRAVEL OUTSIDE OF THE [place] IN LAST 30 DAYS: No - Related Data Allergies/Adverse Reactions: No Known Allergies Allergy (Unverified 03/01/19 13:47) Home Medications: zofran,lisinopril, HCTZ, oxycodone, fentanyl patch 75 mg Past Medical History - Social History Frequency of alcohol use: None Drug Abuse: None - Past Medical History Cardiac Medical History: Reports: Hx Coronary Artery Disease - Stent in the 90s, Hx Heart Attack, Hx Hypertension Pulmonary Medical History: Reports: Hx Asthma, Hx COPD Denies: Hx Tuberculosis Neurological Medical History: Denies: Hx Seizures Endocrine Medical History: Denies: Hx Diabetes Mellitus Type 1, Hx Diabetes Mellitus Type 2 Renal/ Medical History: Reports: Hx Kidney Stones. Denies: Hx Peritoneal Dialysis GI Medical History: Reports: Hx Pancreatitis, Hx Ulcer Musculoskeltal Medical History: Reports Hx Arthritis Psychiatric Medical History: Reports: Hx Anxiety, Hx Depression Past Surgical History: Reports: Hx Abdominal Surgery, Hx Cardiac Catheterization - 2 cardiac catheters, angioplasty, patient denies stents, Hx Cholecystectomy, Hx Coronary Stent, Hx Orthopedic Surgery - ACF, lumbar fusion, Hx Pancreatic Surgery - drainage of pancreatic pseudocyst, Other - drainage of pancreatic pseudocyst - Immunizations Immunizations up to date: Yes Hx Diphtheria, Pertussis, Tetanus Vaccination: Yes Physical Exam - Vital signs Vitals: Temp Pulse Resp BP Pulse Ox 97.9 F 70 16 144/77 H 97 06/06/20 03:53 06/06/20 03:53 06/06/20 03:53 06/06/20 03:53 06/06/20 03:53 - Abdominal Tenderness: Tender - Generalized tenderness in the upper abdomen which is mild, nonspecific, no guarding Course - Re-evaluation Re-evalutation: I have greeted and performed a rapid initial assessment of this patient. A comprehensive ED assessment and evaluation of the patient, analysis of test res ults and completion of the medical decision making process will be conducted by additional ED providers. - Vital Signs Vital signs: Temp Pulse Resp BP Pulse Ox 97.9 F 70 16 144/77 H 97 06/06/20 03:53 06/06/20 03:53 06/06/20 03:53 06/06/20 03:53 06/06/20 03:53 Doctor's Discharge - Discharge Referrals: MONI LEVI MD [Primary Care Provider] - Follow up as needed
[2020-06-06 06:23] LABS: ALKALINE PHOSPHATASE 103 U/L (38-126); ANION GAP 8 (5-19); ASPARTATE AMINO TRANSFERASE 28 U/L (17-59); BILIRUBIN,TOTAL 0.4 mg/dL (0.2-1.3); BLOOD UREA NITROGEN 17 mg/dL (7-20); CALCIUM 9.3 mg/dL (8.4-10.2); CARBON DIOXIDE 23 mmol/L (22-30); CHLORIDE 111 mmol/L (98-107); GLUCOSE 111 mg/dL (75-110); TOTAL PROTEIN 6.8 g/dL (6.3-8.2)
[2020-06-06] MEDS ORDERED: DEXTROSE 5%-1/2 NORMAL SALINE 500 ML IV ONE (07:00)
[2020-06-06 07:13] LABS: APPEARANCE,URINE CLEAR; BILIRUBIN,URINE NEGATIVE (NEGATIVE); GLUCOSE, URINE NEGATIVE (NEGATIVE); KETONES,URINE NEGATIVE (NEGATIVE); LEUKOCYTE ESTERASE,URINE NEGATIVE (NEGATIVE); NITRITE,URINE NEGATIVE (NEGATIVE); PROTEIN,URINE 30 mg/dL (NEGATIVE); URINE SPECIFIC GRAVITY 1.032
[2020-06-06 07:14] LABS: COLOR,URINE YELLOW
[2020-06-06] MEDS ORDERED: HYDROMORPHONE HCL INJ/PF 2 MG/ML AMPULE IV ONE (07:55)
[2020-06-06 08:08] VITALS: BP 160/80
[2020-06-06 08:10] LABS: ABSOLUTE EOSINOPHILS # (AUTO) 0.1 10^3/uL (0.0-0.6); ABSOLUTE LYMPHOCYTES (AUTO) 2.6 10^3/uL (0.5-4.7); ABSOLUTE MONOCYTES (AUTO) 0.4 10^3/uL (0.1-1.4); ABSOLUTE NEUT (AUTO) 3.6 10^3/uL (1.7-8.2); BASOPHILS % (AUTO) 0.3 % (0-2); EOSINOPHILS % (AUTO) 1.7 % (0-6); HEMOGLOBIN 14.3 g/dL (13.5-17.0); LYMPHOCYTES % (AUTO) 38.5 % (13-45); MEAN CORPUSCULAR HEMOGLOBIN 31.4 pg (27.0-33.4); MEAN CORPUSCULAR VOLUME 93 fl (80-97); MONOCYTES % (AUTO) 6.4 % (3-13); PLATELET COUNT 236 10^3/uL (150-450); RED BLOOD COUNT 4.54 10^6/uL (4.35-5.55); RED CELL DISTRIBUTION WIDTH 13.7 % (11.5-14.0); SEGMENTED NEUTROPHILS % (AUTO) 53.1 % (42-78); TOTAL CELLS COUNTED % (AUTO) 100 %; WHITE BLOOD COUNT 6.8 10^3/uL (4.0-10.5)
--- NOTE | 2020-06-06 09:57 | RADIOLOGY REPORT (SQ) ---
EXAM DESCRIPTION: CT ABD/PELVIS WITH IV ORAL IMAGES COMPLETED DATE/TIME: 06/06/2020 9:33 am REASON FOR STUDY: abd pain/n/v COMPARISON: 05/09/2020. TECHNIQUE: CT scan of the abdomen and pelvis performed with intravenous and oral contrast using issac mo scanning technique with dynamic intravenous contrast injection. Images reviewed with lung, soft t issue, and bone windows. Reconstructed coronal and sagittal MPR images reviewed. Delayed images for e valuation of the urinary system also acquired. All images stored on PACS. All CT scanners at this facility use dose modulation, iterative reconstruction, and/or weight based d osing when appropriate to reduce radiation dose to as low as reasonably achievable (ALARA). [facility]: Dose Right [facility]: CareDose [facility]: Dose Right [facility]: Teradose 4D [facility]: [employer] CONTRAST TYPE AND DOSE: contrast/concentration: Isovue 350.00 mmol/ml; Total Contrast Delivered: 100 .0 ml; Total Saline Delivered: 61.9 ml RENAL FUNCTION: BUN 17 creatinine 0.73. RADIATION DOSE: CT Rad equipment meets quality standard of care and radiation dose reduction techniq ues were employed. CTDIvol: 10.3 - 14.6 mGy. DLP: 1272 mGy-cm.. LIMITATIONS: None. FINDINGS: LOWER CHEST: No significant findings. No nodules or infiltrates. LIVER: Normal size. Mild diffuse fatty infiltration. No masses. No dilated ducts. SPLEEN: Normal size. No focal lesions. PANCREAS: No masses. A few scattered calcifications. No adjacent inflammation or peripancreatic flui d collections. Pancreatic duct not dilated. GALLBLADDER: Surgically absent. ADRENAL GLANDS: No significant masses or asymmetry. RIGHT KIDNEY AND URETER: No solid masses. No significant calcification. No hydronephrosis or hydroure ter. LEFT KIDNEY AND URETER: No solid masses. No significant calcification. No hydronephrosis or hydrouret er. AORTA AND VESSELS: 4.2 cm infrarenal abdominal aortic aneurysm. Previous measurement 4.0 cm. No diss ection. Renal arteries, SMA, celiac without stenosis. RETROPERITONEUM: No retroperitoneal adenopathy, hemorrhage or masses. BOWEL AND PERITONEAL CAVITY: No obstruction. No visualized masses. No free fluid. Scattered sigmoid diverticuli. No inflammatory changes or thickening of bowel wall. APPENDIX: Normal. PELVIS: No significant masses. Normal bladder. No free fluid. ABDOMINAL WALL: No masses. Again seen are small fat containing hernias, most likely site of previous laparoscopic access. BONES: No significant or acute findings. Surgical changes in the lower lumbar spine with hardware. OTHER: No other significant finding. IMPRESSION: 1. SIGMOID DIVERTICULOSIS. NO FINDINGS OF ACUTE DIVERTICULITIS. 2. 4.2 CM INFRARENAL ABDOMINAL AORTIC ANEURYSM. PREVIOUS MEASUREMENT 4.0 cm. 3. NO OTHER SIGNIFICANT OR ACUTE FINDINGS IN THE ABDOMEN OR PELVIS. INCIDENTAL STABLE CHRONIC FINDIN GS ABOVE. TECHNICAL DOCUMENTATION: JOB ID: [id number] Quality ID # [id number]: Final reports with documentation of one or more dose reduction techniques (e.g., Au tomated exposure control, adjustment of the mA and/or kV according to patient size, use of iterative reconstruction technique) 2010 [employer]- All Rights Reserved Reading location - IP/workstation name: [email or web address]
--- NOTE | 2020-06-06 10:25 | ER Document Report ---
Entered by RAND ORELLANA SCRIBE 06/06/20 0709 Acting as scribe for:YANNA KIDD MD ED GI/ - General Chief Complaint: Abdominal Pain Stated Complaint: ABDOMINAL PAIN Time Seen by Provider: 06/06/20 05:22 Primary Care Provider: MONI LEVI MD [Primary Care Provider] - Follow up as needed Information source: Patient Notes: This 59 year old male patient presents to the emergency department today with complaints of abdominal pain. Patient reports a history of a cholecystectomy, chronic pancreatitis for the past x1 year and removal of 1/2 of his pancreas. Ezequiel hernandez states he has recently been released from the hospital in [place] after being hospitalized for x11 days due to abdominal pain and not being able to eat. Patient states he was put on a liquid diet while hospitalized and has since only been having chicken broth. Patient states his next appointment with his GI Doctor for a follow up is in x3.5 weeks and could not wait to be seen due to his abdominal pain, nausea, and vomiting. TRAVEL OUTSIDE OF THE [place] IN LAST 30 DAYS: No - Related Data Allergies/Adverse Reactions: No Known Allergies Allergy (Unverified 03/01/19 13:47) Home Medications: zofran,lisinopril, HCTZ, oxycodone, fentanyl patch 75 mg Past Medical History - General Information source: Patient - Social History Smoking Status: Current Every Day Smoker Cigarette use (# per day): Yes Frequency of alcohol use: None Drug Abuse: None Family History: Reviewed & Not Pertinent Patient has homicidal ideation: No - Past Medical History Cardiac Medical History: Reports: Hx Coronary Artery Disease - Stent in the 90s, Hx Heart Attack, Hx Hypertension Pulmonary Medical History: Reports: Hx Asthma, Hx COPD Renal/ Medical History: Reports: Hx Kidney Stones GI Medical History: Reports: Hx Pancreatitis, Hx Ulcer Musculoskeletal Medical History: Reports Hx Arthritis Psychiatric Medical History: Reports: Hx Anxiety, Hx Depression Past Surgical History: Reports: Hx Abdominal Surgery, Hx Cardiac Catheterization - 2 cardiac catheters, angioplasty, patient denies stents, Hx Cholecystectomy, Hx Coronary Stent, Hx Orthopedic Surgery - ACF, lumbar fusion, Hx Pancreatic S urgery - drainage of pancreatic pseudocyst - Immunizations Immunizations up to date: Yes Hx Diphtheria, Pertussis, Tetanus Vaccination: Yes Hx Pneumococcal Vaccination: 11/14/14 Review of Systems - Review of Systems Constitutional: No symptoms reported EENT: No symptoms reported Cardiovascular: No symptoms reported Respiratory: No symptoms reported Gastrointestinal: See HPI, Abdominal pain, Nausea, Vomiting Genitourinary: No symptoms reported Male Genitourinary: No symptoms reported Musculoskeletal: No symptoms reported Skin: No symptoms reported Hematologic/Lymphatic: No symptoms reported Neurological/Psychological: No symptoms reported -: Yes All other systems reviewed and negative Physical Exam - Vital signs Vitals: Temp Pulse Resp BP Pulse Ox 97.9 F 70 16 144/77 H 97 06/06/20 03:53 06/06/20 03:53 06/06/20 03:53 06/06/20 03:53 06/06/20 03:53 - General General appearance: Appears well, Alert - HEENT Head: Normocephalic, Atraumatic Eyes: Normal Pupils: PERRL - Respiratory Respiratory status: No respiratory distress Chest status: Nontender Breath sounds: Normal Chest palpation: Normal - Cardiovascular Rhythm: Regular Heart sounds: Normal auscultation Murmur: No - Abdominal Inspection: Other - Soft, Healed incisions from past abdominal surgeries Distension: No distension Bowel sounds: Normal Tenderness: Tender - Mild. No: Rebound - Extremities General upper extremity: Normal inspection. No: Edema General lower extremity: Normal inspection. No: Edema - Neurological Neuro grossly intact: Yes Cognition: Normal Orientation: AAOx4 Speech: Normal - Psychological Associated symptoms: Normal affect, Normal mood - Skin Skin Temperature: Warm Skin Moisture: Dry Skin Color: Normal Course - Re-evaluation Re-evalutation: 06/06/20 10:17 Patient resting comfortably at this time. Patient reports to me that he just vomited. 06/06/20 10:24 Patient was upset and on discharge discussion as I explained the patient I was not writing prescriptions for narcotic pain medications for him. Patient pleaded the asked with 3 days worth fentanyl patches and I explained to him I would not do so and encouraged him to go to his primary care physician for further medications of this nature. - Vital Signs Vital signs: Temp Pulse Resp BP Pulse Ox 97.6 F 55 L 16 160/80 H 99 06/06/20 08:06 06/06/20 08:06 06/06/20 08:06 06/06/20 08:06 06/06/20 08:06 06/06/20 10:17 Vital signs are stable no tachycardia no tachypnea afebrile pulse ox 99%. - Laboratory Result Diagrams: 06/06/20 07:48 06/06/20 05:44 Laboratory results interpreted by me: 06/06/20 06/06/20 05:44 06:52 Chloride 111 H Glucose 111 H Urine Protein 30 H Urine Blood SMALL H Urine Urobilinogen 2.0 H 06/06/20 10:18 Laboratories within normal limits. Urine shows a small amount of blood. - Diagnostic Test Radiology reviewed: Image reviewed, Reports reviewed Radiology results interpreted by me: 06/06/20 10:20 CT scan of abdomen and pelvis with oral and IV contrast shows no acute new findings. Patient has diverticulosis without diverticulitis patient has 4.0 abdominal aortic aneurysm that has increased in size to 4.2. There is no dissection or any leakage you were seen after an overdose on narcotic pain medication. Please understand that you could have today had EMS not arrived and saved your life. Please never take these pain medications unless they are prescribed to you and only take them exactly as directed. Please follow-up with your primary care doctor as needed. Aneurysm at this time. Otherwise no other acute process. Discharge - Discharge Clinical Impression: History of pancreatitis, Nausea & vomiting Condition: Stable Disposition: HOME, SELF-CARE Instructions: Antinausea Medication ([facility]) Additional Instructions: Pancreatitis Pancreatitis is an inflammation of the pancreas, an organ at the back of your abdomen. The pancreas produces insulin and enzymes that digest your food. Pancreatitis can be caused by gallstones in the bile duct, by alcohol or viruses, or by excess fat or calcium in the blood stream. Occasionally, pancreatitis occurs when a stomach ulcer silver through into the pancreas. We try to find the cause of pancreatitis, but some tests can't be done until the pancreas heals. The usual symptoms of pancreatitis are pain in the pit of the stomach that goes straight through to the back, vomiting, and low-grade fever. Severe cases require hospital admission, but many patients with mild pancreatitis do well at home. You will probably need medicine for pain and for vomiting. Sometimes we prescribe medicine to decrease stomach acid secretion and to decrease flow of pancreatic juices. Start with a diet of clear liquids (soda pop, juices). When the pain is decreasing, you can add some simple starches (potato, toast, applesauce). Avoid proteins and fats until you are completely painfree. When you're better, your doctor may suggest treatment to prevent future pancreatitis (such as gallbladder removal). Avoid alcohol forever. Get immediate treatment for any future episodes. Contact your doctor at once or return here if you have increasing pain, shortness of breath, general swelling, increasing size of the abdomen, continued vomiting, muscle spasms, or other new symptoms. Prescriptions: Metoclopramide HCl [Reglan 10 mg Tablet] 10 mg PO QID PRN #20 tablet PRN Reason: Referrals: MONI LEVI MD [Primary Care Provider] - Follow up as needed I personally performed the services described in the documentation, reviewed and edited the documentation which was dictated to the scribe in my presence, and it accurately records my words and actions.
== END 2020-06-06 10:18 | disposition home or self-care (01) ==
LOC: ER 03:39
DX: R11.2 Nausea with vomiting, unspecified (principal); R10.9 Unspecified abdominal pain; Z79.899 Other long term (current) drug therapy; F17.210 Nicotine dependence, cigarettes, uncomplicated; I25.10 Atherosclerotic heart disease of native coronary artery without angina pectoris; I10 Essential (primary) hypertension; I25.2 Old myocardial infarction; J44.9 Chronic obstructive pulmonary disease, unspecified; Z87.19 Personal history of other diseases of the digestive system
CPT/HCPCS: 96376; 99284; 96361; 96374; 96375; 36415; 83690; 85025; 80053; 81001; 74177; J3010; J1170; J2405; J7070; J7030

== ENCOUNTER 2020-10-04 09:52 | Emergency (ER) | payer MEDICARE, MEDICAID ==
[2020-10-04] MEDS ORDERED: HYDROCODONE/ACETAMINOPHEN 5-325 MG TABLET PO ONE (10:09)
--- NOTE | 2020-10-04 10:28 | ER Document Report ---
ED Fall - General Chief Complaint: Fall Stated Complaint: FALL LEFT HIP PAIN Time Seen by Provider: 10/04/20 10:01 Primary Care Provider: MONI LEVI MD [NO LOCAL MD] - Follow up as needed Notes: HPI: 59-year-old male who fell 7 feet from a tree stand yesterday onto his left hip. It was onto the dirt. No head trauma loss of consciousness. Patient is not on blood thinning medications. Patient denies any cough or shortness of breath. He has been "hobbling" since the fall. ROS: See HPI All other review of systems reviewed and otherwise negative Reviewed vital signs and nursing note as charted by RN. PHYSICAL EXAM: CONSTITUTIONAL: Alert and oriented and responds appropriately to questions. Well-appearing; well-nourished HEAD: Normocephalic; atraumatic EYES: PERRL; full extraocular range of motion ENT: Normal nose; no rhinorrhea; moist mucous membranes; pharynx without lesions noted NECK: Supple without meningismus; non-tender CARD: Regular rate and rhythm; no murmurs; symmetric distal pulses RESP: Normal chest excursion without splinting or tachypnea; mild tenderness to the left posterior lower ribs without any obvious swelling, crepitus, erythema; breath sounds clear and equal bilaterally; no wheezes, no rhonchi, no rales ABD/GI: Normal bowel sounds; non-distended; soft, non-tender BACK: The back appears normal and is non-tender to palpation along the midline spine. Patient does have some left lower hip EXT: Has some tenderness to the left hip and upper lateral thigh. No swelling or ecchymosis. Full range of motion. No shortening or rotation of the leg. Neurovascular intact distally SKIN: No acute lesions noted NEURO: CN 2-12 intact; 5/5 bilateral upper and lower extremity strength with sensation intact to light touch PSYCH: The patient's mood and manner are appropriate. Grooming and personal hygiene are appropriate. TRAVEL OUTSIDE OF THE [place] IN LAST 30 DAYS: No - Related data Allergies/Adverse Reactions: No Known Allergies Allergy (Unverified 03/01/19 13:47) Home Medications: Lisinopril Past Medical History - Social History Smoking Status: Current Every Day Smoker Frequency of alcohol use: None Drug Abuse: None Family History: Reviewed & Not Pertinent - Past Medical History Cardiac Medical History: Reports: Hx Coronary Artery Disease - Stent in the 90s, Hx Heart Attack, Hx Hypertension Pulmonary Medical History: Reports: Hx Asthma, Hx COPD Denies: Hx Tuberculosis Neurological Medical History: Denies: Hx Seizures Endocrine Medical History: Denies: Hx Diabetes Mellitus Type 1, Hx Diabetes Mellitus Type 2 Renal/ Medical History: Reports: Hx Kidney Stones. Denies: Hx Peritoneal Dialysis GI Medical History: Reports: Hx Pancreatitis, Hx Ulcer Musculoskeletal Medical History: Reports Hx Arthritis Psychiatric Medical History: Reports: Hx Anxiety, Hx Depression Past Surgical History: Reports: Hx Abdominal Surgery, Hx Cardiac Catheterization - 2 cardiac catheters, angioplasty, patient denies stents, Hx Cholecystectomy, Hx Coronary Stent, Hx Orthopedic Surgery - ACF, lumbar fusion, Hx Pancreatic Surgery - drainage of pancreatic pseudocyst, Other - drainage of pancreatic pseudocyst - Immunizations Immunizations up to date: Yes Hx Diphtheria, Pertussis, Tetanus Vaccination: Yes Hx Pneumococcal Vaccination: 11/14/14 Physical Exam - Vital signs Vitals: Temp Pulse Resp BP Pulse Ox 97.6 F 106 H 12 115/80 96 10/04/20 10:06 10/04/20 10:06 10/04/20 10:06 10/04/20 10:06 10/04/20 10:06 Course - Re-evaluation Re-evalutation: 10/04/20 10:28 Given the history and physical examination in the above movement of the left hip, I will order an x-ray of the left lower ribs, left hip, and left femur. I will provide a dose of Vicodin. I do not believe any CT imaging of the head or neck is necessary at this moment. 10/04/20 10:56 X-rays of the pelvis and left femur show no obvious fractures. Old surgical hardware present to the spinal region with no obvious malformations noted. No obvious rib fractures that are displaced and no obvious pneumothorax or hemothorax present. Vital signs are improved with a heart rate in the 90s. Oxygenation is excellent. Patient will be discharged home with short course of pain medications and follow-up with the primary doctor. - Vital Signs Vital signs: Temp Pulse Resp BP Pulse Ox 97.6 F 106 H 12 115/80 96 10/04/20 10:06 10/04/20 10:06 10/04/20 10:06 10/04/20 10:06 10/04/20 10:06 Discharge - Discharge Clinical Impression: Fall from height of greater than 3 feet Contusion of left hip Qualifiers: Encounter type: initial encounter Qualified Code(s): S70.02XA - Contusion of left hip, initial encounter Contusion of rib on left side Qualifiers: Encounter type: initial encounter Qualified Code(s): S20.212A - Contusion of left front wall of thorax, initial encounter Condition: Good Disposition: HOME, SELF-CARE Additional Instructions: Come back immediately for any increased pain, change in location or quality of pain, fevers or vomiting, shortness of breath, or any other acute problems. Please follow-up with the primary care physician and possibly orthopedics as we have provided. Prescriptions: Hydrocodone/Acetaminophen [[place] 5-325 mg Tablet] 1 tab PO Q8 #10 tablet Referrals: MONI LEVI MD [NO LOCAL MD] - Follow up as needed KALI RODRIGUEZ DO [ACTIVE STAFF] - Follow up as needed
--- NOTE | 2020-10-04 10:55 | RADIOLOGY REPORT (SQ) ---
EXAM DESCRIPTION: HIP LEFT AP/LATERAL IMAGES COMPLETED DATE/TIME: 10/04/2020 10:46 am REASON FOR STUDY: Fall, pain COMPARISON: 09/06/2011 EXAM PARAMETERS: NUMBER OF VIEWS: Three views. TECHNIQUE: AP, lateral and oblique radiographic images acquired of the left hip LIMITATIONS: None. FINDINGS: MINERALIZATION: Normal. BONES: No acute fracture or dislocation. No worrisome bone lesions. JOINTS: No effusion. SOFT TISSUES: No significant soft tissue swelling. No radiopaque foreign body. OTHER: Posterior lumbar fusion hardware appears stable. IMPRESSION: NO FRACTURE. TECHNICAL DOCUMENTATION: JOB ID: [id number] [place]-72 2010 [employer]- All Rights Reserved Reading location - IP/workstation name: [email or web address]
--- NOTE | 2020-10-04 10:57 | RADIOLOGY REPORT (SQ) ---
EXAM DESCRIPTION: CHEST 2 VIEWS IMAGES COMPLETED DATE/TIME: 10/04/2020 10:46 am REASON FOR STUDY: Fall, pain COMPARISON: 10/23/2016 TECHNIQUE: Frontal and lateral radiographic views of the chest acquired. NUMBER OF VIEWS: Two view. LIMITATIONS: None. FINDINGS: LUNGS AND PLEURA: No pneumothorax. No consolidation or pleural effusion. MEDIASTINUM AND HILAR STRUCTURES: Stable. HEART AND VASCULAR STRUCTURES: Stable. BONES: No acute findings. HARDWARE: None in the chest. OTHER: No other significant finding. IMPRESSION: NO ACUTE FINDINGS. TECHNICAL DOCUMENTATION: JOB ID: [id number] [place]-72 2010 [id number]- All Rights Reserved Reading location - IP/workstation name: [email or web address]
--- NOTE | 2020-10-04 10:58 | RADIOLOGY REPORT (SQ) ---
EXAM DESCRIPTION: FEMUR LEFT IMAGES COMPLETED DATE/TIME: 10/04/2020 10:47 am REASON FOR STUDY: Fall, pain COMPARISON: None. EXAM PARAMETERS: NUMBER OF VIEWS: Four views. TECHNIQUE: AP, lateral and oblique radiographic images acquired of the left femur LIMITATIONS: None. FINDINGS: MINERALIZATION: Normal. BONES: No acute fracture or dislocation. No worrisome bone lesions. JOINTS: No effusion. SOFT TISSUES: No significant soft tissue swelling. No radiopaque foreign body. OTHER: No other significant finding. IMPRESSION: NO FRACTURE. TECHNICAL DOCUMENTATION: JOB ID: [id number] [place]-72 2010 [employer]- All Rights Reserved Reading location - IP/workstation name: [email or web address]
[2020-10-04 11:07] VITALS: BP 142/84
== END 2020-10-04 11:20 | disposition home or self-care (01) ==
LOC: ER 09:52
DX: S70.02XA Contusion of left hip, initial encounter (principal); S20.212A Contusion of left front wall of thorax, initial encounter; W14.XXXA Fall from tree, initial encounter; F17.200 Nicotine dependence, unspecified, uncomplicated
CPT/HCPCS: 99284; 71046; 73552; 73502; A9270

== ENCOUNTER 2020-11-04 06:19 | Emergency (ER) | payer MEDICARE, MEDICAID ==
[2020-11-04] MEDS ORDERED: HYDROMORPHONE HCL INJ/PF 2 MG/ML AMPULE IV ONE ×2 (09:21→10:00)
[2020-11-04] MEDS ORDERED: ONDANSETRON HCL INJ/PF 4 MG/2 ML SDV IV ONE ×2 (09:21→11:22)
[2020-11-04] MEDS ORDERED: RINGERS SOLUTION,LACTATED 1,000 ML IV ONE (09:21)
[2020-11-04 09:24] LABS: ABSOLUTE BASOPHILS # (AUTO) 0.1 10^3/uL (0.0-0.2); ABSOLUTE EOSINOPHILS # (AUTO) 0.1 10^3/uL (0.0-0.6); ABSOLUTE LYMPHOCYTES (AUTO) 1.6 10^3/uL (0.5-4.7); ABSOLUTE MONOCYTES (AUTO) 0.5 10^3/uL (0.1-1.4); ABSOLUTE NEUT (AUTO) 7.3 10^3/uL (1.7-8.2); BASOPHILS % (AUTO) 0.6 % (0-2); HEMATOCRIT 41.8 % (37.9-51.0); HEMOGLOBIN 14.3 g/dL (13.5-17.0); LYMPHOCYTES % (AUTO) 16.9 % (13-45); MEAN CORPUSCULAR HEMOGLOBIN 31.3 pg (27.0-33.4); MEAN CORPUSCULAR HGB CONC 34.1 g/dL (32.0-36.0); MEAN CORPUSCULAR VOLUME 92 fl (80-97); MONOCYTES % (AUTO) 5.5 % (3-13); PLATELET COUNT 325 10^3/uL (150-450); RED BLOOD COUNT 4.56 10^6/uL (4.35-5.55); RED CELL DISTRIBUTION WIDTH 14.1 % (11.5-14.0); TOTAL CELLS COUNTED % (AUTO) 100 %; WHITE BLOOD COUNT 9.6 10^3/uL (4.0-10.5)
[2020-11-04 09:43] LABS: ALBUMIN 3.9 g/dL (3.5-5.0); ALKALINE PHOSPHATASE 96 U/L (38-126); ANION GAP 6 (5-19); ASPARTATE AMINO TRANSFERASE 30 U/L (17-59); BILIRUBIN,DIRECT 0.2 mg/dL (0.0-0.4); BILIRUBIN,TOTAL 0.4 mg/dL (0.2-1.3); BLOOD UREA NITROGEN 9 mg/dL (7-20); CALCIUM 9.2 mg/dL (8.4-10.2); CARBON DIOXIDE 26 mmol/L (22-30); CHLORIDE 109 mmol/L (98-107); GLUCOSE 99 mg/dL (75-110); POTASSIUM 4.3 mmol/L (3.6-5.0); TOTAL PROTEIN 6.8 g/dL (6.3-8.2)
[2020-11-04] MEDS ORDERED: METOCLOPRAMIDE HCL INJ/PF 10 MG/2 ML SDV IV ONE (10:00)
[2020-11-04] MEDS ORDERED: DIPHENHYDRAMINE HCL 50 MG/ML VIAL IV ONE (10:00)
--- NOTE | 2020-11-04 10:52 | RADIOLOGY REPORT (SQ) ---
EXAM DESCRIPTION: CT ABD/PELVIS NO ORAL OR IV IMAGES COMPLETED DATE/TIME: 11/04/2020 10:31 am REASON FOR STUDY: abdominal pain, has reaction to IV dye COMPARISON: 06/06/2020 TECHNIQUE: CT scan of the abdomen and pelvis performed without intravenous or oral contrast. Images reviewed with lung, soft tissue, and bone windows. Reconstructed coronal and sagittal MPR images revi ewed. All images stored on PACS. All CT scanners at this facility use dose modulation, iterative reconstruction, and/or weight based d osing when appropriate to reduce radiation dose to as low as reasonably achievable (ALARA). [facility]: Dose Right [facility]: CareDose [facility]: Dose Right [facility]: Teradose 4D [facility]: [employer] RADIATION DOSE: CT Rad equipment meets quality standard of care and radiation dose reduction techniq ues were employed. CTDIvol: 12.3 mGy. DLP: 672 mGy-cm LIMITATIONS: None. FINDINGS: LOWER CHEST: No significant interval changes. NON-CONTRASTED LIVER, SPLEEN, ADRENALS: Fatty liver. Evaluation limited by lack of IV contrast. No identified significant masses. PANCREAS: Several calcifications in the region of the pancreas, likely related to sequelae from prio r inflammatory changes. No masses. No peripancreatic inflammatory changes. GALLBLADDER: Prior cholecystectomy. RIGHT KIDNEY AND URETER: No suspicious masses. Assessment limited by lack of IV contrast. No signif icant calcifications. No hydronephrosis or hydroureter. LEFT KIDNEY AND URETER: Stable small subcentimeter hyperdense renal lesions. Intrarenal vascular ca lcification. Assessment limited by lack of IV contrast. no hydronephrosis or hydroureter. AORTA AND RETROPERITONEUM: Stable infrarenal abdominal aortic aneurysm 4.1- 4.2 cm in diameter. No retroperitoneal masses or adenopathy. BOWEL AND PERITONEAL CAVITY: Colonic diverticulosis without evidence of diverticulitis. No free flu id. APPENDIX: Normal. PELVIS, BLADDER, AND ABDOMINAL WALL: Stable containing fatty abdominal wall hernias. The prostate g land is stable in appearance. No free fluid. Bladder normal. BONES: The osseous structures are stable in appearance. Post surgical changes with hardware posteri or fusion mid lower lumbar spine. OTHER: No other significant finding. IMPRESSION: 1. No significant interval changes since the prior study dated 06/06/2020. 2. Colonic diverticulosis without evidence of diverticulitis. 3. Stable appearance to the infrarenal abdominal aortic aneurysm as above. 4. Additional stable findings as above. COMMENT: Quality ID # [id number]: Final reports with documentation of one or more dose reduction techniques (e.g., Automated exposure control, adjustment of the mA and/or kV according to patient size, use of iterative reconstruction technique) TECHNICAL DOCUMENTATION: JOB ID: [id number] 2010 [employer]- All Rights Reserved Reading location - IP/workstation name: [id number]
--- NOTE | 2020-11-04 11:13 | ER Document Report ---
ED General - General Chief Complaint: Abdominal Pain Stated Complaint: ABDOMINAL PAIN Time Seen by Provider: 11/04/20 09:06 Primary Care Provider: J CARLOS BLACK MD [ACTIVE STAFF] - Follow up in 3-5 days (for GI follow up) TRAVEL OUTSIDE OF THE [place] IN LAST 30 DAYS: No - HPI Notes: 59-year-old male with past medical history for cholecystitis, cholecystectomy, pancreatitis, pseudocyst excision to the emergency department with complaints of epigastric abdominal pain with nausea and vomiting that has been ongoing and severe for the past several days. He states it feels like his normal pancreatitis. He states that about a year ago he had a pseudocyst removed. He does not drink any alcohol. He denies any fevers or chills. He states that he has been vomiting so much that he is only dry heaving at this point. Denies any back pain, chest pain, shortness of breath, diarrhea, loss of smell or taste, any Covid 19 contacts. He does not currently have a GI specialist. He does not take any pancreatic enzymes. - Related Data Allergies/Adverse Reactions: No Known Allergies Allergy (Verified 11/04/20 07:50) Past Medical History - General Information source: Patient - Social History Smoking Status: Current Every Day Smoker Frequency of alcohol use: None Drug Abuse: None Family History: Reviewed & Not Pertinent - Past Medical History Cardiac Medical History: Reports: Hx Coronary Artery Disease - Stent in the 90s, Hx Heart Attack, Hx Hypertension Pulmonary Medical History: Reports: Hx Asthma, Hx COPD Denies: Hx Tuberculosis Neurological Medical History: Denies: Hx Seizures Endocrine Medical History: Denies: Hx Diabetes Mellitus Type 1, Hx Diabetes Mellitus Type 2 Renal/ Medical History: Reports: Hx Kidney Stones. Denies: Hx Peritoneal Dialysis GI Medical History: Reports: Hx Pancreatitis, Hx Ulcer Musculoskeletal Medical History: Reports Hx Arthritis Psychiatric Medical History: Reports: Hx Anxiety, Hx Depression Past Surgical History: Reports: Hx Abdominal Surgery - 1/2 pancreas removed, Hx Cardiac Catheterization - 2 cardiac catheters, angioplasty, patient denies stents, Hx Cholecystectomy, Hx Coronary Stent, Hx Orthopedic Surgery - ACF, lumbar fusion, Hx Pancreatic Surgery - drainage of pancreatic pseudocyst, Other - drainage of pancreatic pseudocyst - Immunizations Immunizations up to date: Yes Hx Diphtheria, Pertussis, Tetanus Vaccination: Yes Hx Pneumococcal Vaccination: 11/14/14 Review of Systems - Review of Systems Constitutional: denies: Chills, Fever EENT: No symptoms reported Cardiovascular: Lightheaded. denies: Chest pain, Palpitations, Syncope, Dizziness Respiratory: denies: Cough, Short of breath Gastrointestinal: Abdominal pain, Nausea, Vomiting. denies: Diarrhea, Blood in vomit Genitourinary: No symptoms reported Musculoskeletal: No symptoms reported Skin: No symptoms reported Hematologic/Lymphatic: No symptoms reported Neurological/Psychological: No symptoms reported -: Yes All other systems reviewed and negative Physical Exam - Vital signs Vitals: Temp Pulse Resp BP Pulse Ox 97.5 F 67 20 172/101 H 96 11/03/20 07:32 11/03/20 07:32 11/03/20 07:32 11/03/20 07:32 11/03/20 07:32 Interpretation: Hypertensive - Notes Notes: PHYSICAL EXAMINATION: GENERAL: Well-appearing, well-nourished and in moderate pain distress. HEAD: Atraumatic, normocephalic. EYES: Pupils equal round and reactive to light, extraocular movements intact, sclera anicteric, conjunctiva are normal. ENT: nares patent, oropharynx clear without exudates. Moist mucous membranes. TMs clear bilaterally NECK: Normal range of motion, supple without lymphadenopathy LUNGS: Breath sounds clear to auscultation bilaterally and equal. No wheezes rales or rhonchi. HEART: Regular rate and rhythm without murmurs ABDOMEN: Soft, normoactive bowel sounds. Noted healed surgery scars to the abdomen from laproscopic psuedocyst removal. there are two ventral hernias that are soft, easily reduced, and not strangulated or incarceration. There is TTP over the epigastric. No TTP to the RUQ, LUQ, LLQ, RLQ. NEgative Zeng's sign, negative McBurney's point. No guarding, no rebound. No masses appreciated. EXTREMITIES: Normal range of motion, no pitting or edema. No cyanosis. NEUROLOGICAL: No focal neurological deficits. Moves all extremities spontaneously and on command. PSYCH: Normal mood, normal affect. SKIN: Warm, Dry, normal turgor, no rashes or lesions noted. Course - Re-evaluation Re-evalutation: 11/04/20 Rounded on patient after negative CT results and noted labs. Lipase is WNL. Likely a chronic pancreatitis. Patient is feeling much better, no longer vomiting and able to rest in his room. Plan will be to send home with an tiemetics, small amount of pain meds. I have asked the patient to return should his symptoms worsen. Encouraged to follow up with GI. Patient agrees with the plan. - Vital Signs Vital signs: Temp Pulse Resp BP Pulse Ox 98.1 F 65 16 195/116 H 96 11/04/20 11:51 11/04/20 11:51 11/04/20 11:51 11/04/20 11:51 11/04/20 11:51 - Laboratory Results Result Diagrams: 11/04/20 09:14 11/04/20 09:14 Laboratory Results Interpreted: 11/04/20 11/04/20 09:14 09:14 RDW 14.1 H Chloride 109 H Critical Laboratory Results Reviewed: No Critical Results - Radiology Results Radiology Results Interpreted: 11/04/20 Abdomen/Pelvis CT 11/04/20 10:04 IMPRESSION: 1. No significant interval changes since the prior study dated 06/06/2020. 2. Colonic diverticulosis without evidence of diverticulitis. 3. Stable appearance to the infrarenal abdominal aortic aneurysm as above. 4. Additional stable findings as above. Critical Radiology Results Reviewed: No Critical Results Discharge - Discharge Clinical Impression: Epigastric abdominal pain Chronic pancreatitis Qualifiers: Pancreatitis type: unspecified pancreatitis type Qualified Code(s): K86.1 - Other chronic pancreatitis Hypertension Qualifiers: Hypertension type: essential hypertension Qualified Code(s): I10 - Essential (primary) hypertension Condition: Stable Disposition: HOME, SELF-CARE Instructions: Abdominal Pain ([facility]) Additional Instructions: Use medicines as prescribed. Please push clear liquids only for the next 12 to 24 hours. Then proceed to a bland diet. Return if worsening symptoms. Follow- up with GI specialist. Prescriptions: Promethazine HCl [Phenergan 25 mg Supp.rect] 1 supp DE Q6H #10 supp.rect Referrals: J CARLOS BLACK MD [ACTIVE STAFF] - Follow up in 3-5 days (for GI follow up)
[2020-11-04] MEDS ORDERED: FAMOTIDINE INJ/PF 20 MG/2 ML SDV IV ONE (11:15)
[2020-11-04] MEDS ORDERED: KETOROLAC TROMETHAMINE INJ/PF 30 MG/1 ML SDV IV ONE (11:22)
[2020-11-04] MEDS ORDERED: HYDROCODONE/ACETAMINOPHEN 5-325 MG (6 TAB/ER DISP) PO PRN (11:26)
[2020-11-04 11:52] VITALS: BP 195/116
== END 2020-11-04 11:51 | disposition home or self-care (01) ==
LOC: ER 06:19
DX: K86.1 Other chronic pancreatitis (principal); I10 Essential (primary) hypertension; R11.2 Nausea with vomiting, unspecified; R10.13 Epigastric pain; Z90.49 Acquired absence of other specified parts of digestive tract; F17.200 Nicotine dependence, unspecified, uncomplicated
CPT/HCPCS: 96376; 99285; 96361; 96374; 96375; 36415; 83690; 85025; 80053; 74176; J1200; J1885; J2765; J1170; J2405; J7120; S0028; A9270

== ENCOUNTER 2020-11-06 05:56 | Emergency (ER) | payer MEDICARE, MEDICAID ==
[2020-11-06 06:07] VITALS: BP 170/104
[2020-11-06 06:40] LABS: ABSOLUTE EOSINOPHILS # (AUTO) 0.2 10^3/uL (0.0-0.6); ABSOLUTE MONOCYTES (AUTO) 0.4 10^3/uL (0.1-1.4); HEMATOCRIT 40.8 % (37.9-51.0); TOTAL CELLS COUNTED % (AUTO) 100 %
[2020-11-06 06:44] LABS: ABSOLUTE NEUT (AUTO) 3.9 10^3/uL (1.7-8.2); BASOPHILS % (AUTO) 0.7 % (0-2); EOSINOPHILS % (AUTO) 2.8 % (0-6); LYMPHOCYTES % (AUTO) 30.3 % (13-45); MEAN CORPUSCULAR HEMOGLOBIN 31.3 pg (27.0-33.4); MEAN CORPUSCULAR HGB CONC 34.3 g/dL (32.0-36.0); MEAN CORPUSCULAR VOLUME 91 fl (80-97); MONOCYTES % (AUTO) 5.5 % (3-13); PLATELET COUNT 318 10^3/uL (150-450); RED BLOOD COUNT 4.47 10^6/uL (4.35-5.55); SEGMENTED NEUTROPHILS % (AUTO) 60.7 % (42-78); WHITE BLOOD COUNT 6.5 10^3/uL (4.0-10.5)
[2020-11-06 06:56] LABS: ALKALINE PHOSPHATASE 91 U/L (38-126); ANION GAP 6 (5-19); ASPARTATE AMINO TRANSFERASE 26 U/L (17-59); BILIRUBIN,DIRECT 0.3 mg/dL (0.0-0.4); BILIRUBIN,TOTAL 0.4 mg/dL (0.2-1.3); BLOOD UREA NITROGEN 10 mg/dL (7-20); CALCIUM 9.4 mg/dL (8.4-10.2); CARBON DIOXIDE 26 mmol/L (22-30); CHLORIDE 111 mmol/L (98-107); POTASSIUM 4.6 mmol/L (3.6-5.0); TOTAL PROTEIN 6.8 g/dL (6.3-8.2)
[2020-11-06 06:58] LABS: GLUCOSE 102 mg/dL (75-110)
[2020-11-06] MEDS ORDERED: METOCLOPRAMIDE HCL INJ/PF 10 MG/2 ML SDV IV ONE (08:29)
[2020-11-06] MEDS ORDERED: DICYCLOMINE HCL INJ 20 MG/2 ML AMPULE IM ONE (08:29)
--- NOTE | 2020-11-06 08:32 | ER Document Report ---
ED GI/ - General Chief Complaint: Abdominal Pain Stated Complaint: ABDOMINAL PAIN Time Seen by Provider: 11/06/20 08:18 Notes: CHIEF COMPLAINT: Abdominal pain and vomiting HPI: 59-year-old male presenting for abdominal pain and vomiting. Seen 2 days ago for same complaint. Patient states that he continues to vomit despite Phenergan at home. States he is taken all his hydrocodone. 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 States he has had a history of pancreatitis in the past. Denies diarrhea. Denies fever. Denies cough or chest pain. Patient states this feels like his pancreatic pain from previous ROS: See HPI - all other systems were reviewed and are otherwise negative Constitutional: no fever Eyes: no drainage, no blurred vision ENT: no runny nose, no sore throat Cardiovascular: no chest pain Resp: no SOB, no cough GI: + vomiting, no diarrhea, + abdominal pain : no dysuria Integumentary: no rash Allergy: no hives Musculoskeletal: no extremity pain or swelling Neurological: no numbness/tingling, no weakness MEDICATIONS: I agree with the patient medications as charted by the RN. ALLERGIES: I agree with the allergies as charted by the RN. PAST MEDICAL HISTORY/PAST SURGICAL HISTORY: Reviewed and agree as charted by RN. SOCIAL HISTORY: Reviewed and agree as charted by RN. FAMILY HISTORY: No significant familial comorbid conditions directly related to patient complaint EXAM: I had to wake the patient from sleep for his exam Reviewed vital signs as charted by RN. CONSTITUTIONAL: Alert and oriented and responds appropriately to questions. Well-appearing; well-nourished HEAD: Normocephalic; atraumatic EYES: PERRL; Conjunctivae clear, sclerae non-icteric ENT: normal nose; no rhinorrhea; moist mucous membranes; pharynx without lesions noted, no uvula edema or deviation, no tonsillar hypertrophy, phonation normal NECK: Supple without meningismus; non-tender; no cervical lymphadenopathy, no masses CARD: RRR; no murmurs, no clicks, no rubs, no gallops; symmetric distal pulses RESP: Normal chest excursion without splinting or tachypnea; breath sounds clear and equal bilaterally; no wheezes, no rhonchi, no rales, pulse oximetry 97% on room air not hypoxic ABD/GI: Normal bowel sounds; non-distended; soft, mild tenderness across the abdomen in the epigastric region on palpation, no rebound, no guarding; no palpable organomegaly or masses. BACK: The back appears normal and is non-tender to palpation, there is no CVA tenderness EXT: Normal ROM in all joints; non-tender to palpation; no cyanosis, no effusions, no edema SKIN: Normal color for age and race; warm; dry; good turgor; no acute lesions noted NEURO: Moves all extremities equally; Motor and sensory function intact PSYCH: The patient's mood and manner are appropriate. Grooming and personal hygiene are appropriate. MDM: 59-year-old male presenting for abdominal pain with vomiting episodes. He believes it is pancreatitis. Patient's lab work and CT imaging done without contrast 2 days ago were completely normal. He has been here multiple times for abdominal pain complaints. He is noted to have an infrarenal aortic aneurysm. Given his history I will reimage the patient with contrast today. We will obtain a drug screen and alcohol level. Patient may have gastritis. Patient appears to have chronic abdominal pain issues. The patient was evaluated during the global COVID-19 pandemic and that diagnosis was suspected/considered upon their initial presentation. Their evaluation, treatment and testing was consistent with current guidelines for patients who present with complaints or symptoms that may be related to COVID-19 abdominal pain and vomiting TRAVEL OUTSIDE OF THE [place] IN LAST 30 DAYS: No - Related Data Allergies/Adverse Reactions: No Known Allergies Allergy (Verified 11/06/20 06:07) Past Medical History - Social History Smoking Status: Current Every Day Smoker Frequency of alcohol use: None Drug Abuse: None Family History: Reviewed & Not Pertinent - Past Medical History Cardiac Medical History: Reports: Hx Coronary Artery Disease - Stent in the s, Hx Heart Attack, Hx Hypertension Pulmonary Medical History: Reports: Hx Asthma, Hx COPD Denies: Hx Tuberculosis Neurological Medical History: Denies: Hx Seizures Endocrine Medical History: Denies: Hx Diabetes Mellitus Type 1, Hx Diabetes Mellitus Type 2 Renal/ Medical History: Reports: Hx Kidney Stones. Denies: Hx Peritoneal Dialysis GI Medical History: Reports: Hx Pancreatitis, Hx Ulcer Musculoskeletal Medical History: Reports Hx Arthritis Psychiatric Medical History: Reports: Hx Anxiety, Hx Depression Past Surgical History: Reports: Hx Abdominal Surgery - 1/2 pancreas removed, Hx Cardiac Catheterization - 2 cardiac catheters, angioplasty, patient denies stents, Hx Cholecystectomy, Hx Coronary Stent, Hx Orthopedic Surgery - ACF, lumbar fusion, Hx Pancreatic Surgery - drainage of pancreatic pseudocyst, Other - drainage of pancreatic pseudocyst - Immunizations Immunizations up to date: Yes Hx Diphtheria, Pertussis, Tetanus Vaccination: Yes Hx Pneumococcal Vaccination: 11/14/14 Physical Exam - Vital signs Vitals: Temp Pulse Resp BP Pulse Ox 97.5 F 68 20 170/104 H 96 11/06/20 06:01 11/06/20 06:01 11/06/20 06:01 11/06/20 06:01 11/06/20 06:01 Course - Re-evaluation Re-evalutation: 11/06/20 09:21 Patient now states that he is allergic to IV contrast. States he breaks out in hives although on review of his records he had CT with IV and oral contrast in [facility] with no issues. He also does not wish to have antiemetics IV even though this will be more effective for him given his complaint. He is requesting a pill under the tongue. 11/06/20 09:33 EKG normal sinus rhythm with a ventricular rate of 58. ID 168. QT 412. QTc 405. Normal EKG without other ectopy. Interpreted by emergency department physicians 11/06/20 09:54 Nursing went into the room several times to bring the patient to x-ray. Patient apparently has eloped. They are unable to find the patient they have called for the patient in the lobby he has not responded. Patient will be marked as eloped at this time - Vital Signs Vital signs: Temp Pulse Resp BP Pulse Ox 97.5 F 68 20 170/104 H 96 11/06/20 06:01 11/06/20 06:01 11/06/20 06:01 11/06/20 06:01 11/06/20 06:01 - Laboratory Results Result Diagrams: 11/06/20 06:26 11/06/20 06:26 Laboratory Results Interpreted: 11/06/20 06:26 Chloride 111 H Critical Laboratory Results Reviewed: No Critical Results - Radiology Results Critical Radiology Results Reviewed: No Critical Results Discharge - Discharge Clinical Impression: Chronic abdominal pain, Eloped from emergency department Condition: Fair Disposition: ELOPED
[2020-11-06] MEDS ORDERED: ONDANSETRON 4 MG TAB.RAPDIS PO ONE (09:20)
--- NOTE | 2020-11-06 14:04 | EKG REPORT ---
SEVERITY:- NORMAL ECG - SINUS RHYTHM : Confirmed by: Yosi Ta MD 06-Nov-2020 14:04:28
== END 2020-11-06 10:07 | disposition left against medical advice (07) ==
LOC: ER 05:56
DX: G89.29 Other chronic pain (principal); R10.9 Unspecified abdominal pain; R11.10 Vomiting, unspecified; F17.200 Nicotine dependence, unspecified, uncomplicated; I25.10 Atherosclerotic heart disease of native coronary artery without angina pectoris; I10 Essential (primary) hypertension; I25.2 Old myocardial infarction; Z87.442 Personal history of urinary calculi
CPT/HCPCS: 93005; 99281; 96372; 36415; 80307; 83690; 85025; 80053; 84484; 93010; J0500